=== PATIENT | female | born 1945 | race Caucasian/White ===

== ENCOUNTER 2016-12-22 18:18 | Emergency (ER) | payer MEDICARE ==
--- NOTE | 2016-12-22 19:35 | ER Document Report ---
ED General - General Chief Complaint: Fall Stated Complaint: FALL;BODY PAIN Time seen by provider: 19:30 Notes: Patient is a 71-year-old female that comes emergency department for chief complaint of fall, patient was reportedly walking up stairs when she lost her balance and fell back against the wall, hitting the back of her head. Patient did not pass out, has not vomited, patient is confused at baseline with Alzheimer's. She lives at home with family. Family states that for the past few days patient has had reduced fluid intake and they are afraid she is dehydrated. No fevers, no vomiting, no diarrhea, patient complains of neck pain but has no other complaints. Past medical history of hypertension, hypothyroidism. - Related Data Allergies/Adverse Reactions: No Known Allergies Allergy (Verified 11/22/13 22:20) Past Medical History - General Information source: Patient - Social History Smoking Status: Never Smoker Frequency of alcohol use: None Drug Abuse: None Lives with: Family Family History: Reviewed & Not Pertinent - Past Medical History Cardiac Medical History: Reports: Hx Hypercholesterolemia, Hx Hypertension Pulmonary Medical History: Reports: Hx Asthma Past Surgical History: Reports: Hx Hysterectomy, Hx Orthopedic Surgery - low back fusion - Immunizations Hx Diphtheria, Pertussis, Tetanus Vaccination: No Hx Pneumococcal Vaccination: 08/10/13 Review of Systems - Review of Systems Constitutional: No symptoms reported EENT: No symptoms reported Cardiovascular: No symptoms reported Respiratory: No symptoms reported Gastrointestinal: No symptoms reported Genitourinary: No symptoms reported Female Genitourinary: No symptoms reported Musculoskeletal: No symptoms reported Skin: No symptoms reported Hematologic/Lymphatic: No symptoms reported Neurological/Psychological: See HPI Physical Exam - Vital signs Vitals: Temp Pulse Resp BP Pulse Ox 97.8 F 66 18 92/57 L 99 12/22/16 19:36 12/22/16 19:36 12/22/16 19:36 12/22/16 19:36 12/22/16 19:36 Interpretation: Normal - General General appearance: Appears well, Alert In distress: None - Patient is alert, conversational - HEENT Head: Normocephalic, Abrasions - Small abrasions to the posterior parietal scalp , otherwise unremarkable exam Eyes: Normal Conjunctiva: Normal Extraocular movements intact: Yes Eyelashes: Normal Pupils: PERRL Nasal: Normal Mouth/Lips: Normal Mucous membranes: Normal Pharynx: Normal Neck: Normal - Respiratory Respiratory status: No respiratory distress Chest status: Nontender Breath sounds: Normal Chest palpation: Normal - Cardiovascular Rhythm: Regular Heart sounds: Normal auscultation Murmur: No - Abdominal Inspection: Normal Distension: No distension Bowel sounds: Normal Tenderness: Nontender. No: Tender, Guarding Organomegaly: No organomegaly - Back Back: Normal, Nontender - Extremities General upper extremity: Normal inspection, Nontender, Normal color, Normal ROM , Normal temperature General lower extremity: Normal inspection, Nontender, Normal color, Normal ROM , Normal temperature, Normal weight bearing. No: Selwyn's sign - Neurological Neuro grossly intact: Yes Cognition: Confused Orientation: Disoriented to place, Disoriented to time, Disoriented to events. 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 Patient cooperates with neurological exam which is normal otherwise. Discussed with Dr. Castillo per [facility] guidelines. CT of the head and neck are normal, small abrasion over the top of the head, no repairable wound. This was cleaned and dressed. BMP showing low potassium, urine shows evidence of dehydration. CBC unremarkable. Patient given potassium, IV fluid bolus, blood pressure normalized, patient will follow closely with primary care this week according to family, discussed head injury and return precautions. Family members state understanding and agreement. - Vital Signs Vital signs: Temp Pulse Resp BP Pulse Ox 98.8 F 79 16 128/96 H 92 12/22/16 23:37 12/22/16 23:37 12/22/16 23:37 12/22/16 23:37 12/22/16 23:37 - Laboratory Result Diagrams: 12/22/16 20:19 12/22/16 20:19 Laboratory results interpreted by me: 12/22/16 12/22/16 12/22/16 20:19 20:19 20:19 MCV 79 L MCH 26.5 L RDW 15.1 H Seg Neutrophils % 86.0 H Lymphocytes % 5.5 L Absolute Neutrophils 9.0 H Potassium 3.1 L Est GFR ( Amer) 58 L Est GFR (Non-Af Amer) 48 L Urine Protein 30 H Urine Bilirubin SMALL H Urine Urobilinogen 4.0 H Discharge - Discharge Clinical Impression: Dehydration, Hypokalemia Fall Qualifiers: Encounter type: initial encounter Qualified Code(s): W19.XXXA - Unspecified fall, initial encounter Scalp abrasion Qualifiers: Encounter type: initial encounter Qualified Code(s): S00.01XA - Abrasion of scalp, initial encounter Condition: Stable Disposition: HOME, SELF-CARE Additional Instructions: Imaging of the head and neck does not show any concerning findings. Lab workup shows some dehydration and low potassium, continue rehydration at home, follow-up with primary care for recheck of lab work this week. Keep the abrasion on the scalp clean, clean gently with soap and water, apply topical antibiotic. If needed over the next 2 days take pain medicine, if you do also take the stool softener Return to emergency department for any concerning symptoms - see head injury precautions below. Head Injury Precautions At this point, there is no evidence that your head injury is serious. Observation is necessary, however. Take only clear liquids for the first few hours, unless told otherwise by the doctor. If no pain medication was prescribed, you may take acetaminophen according to the directions on the bottle. Do not take any medication that may alter your level of alertness (unless you've discussed it with the doctor first) . Limit activity for the first 24 hours. Bed rest is best. During the first 24 hours, check to see approximately every two to three hours that the patient is easily arousable, responds normally, and can perform common tasks such as walking without difficulty. Contact your doctor or go to the hospital if any of the following things occur: Persistent vomiting, difficulty in arousing the patient, worsening or continued headache, or failure to improve as expected. Head injuries can cause symptoms that persist for a few days or even a few weeks. Prescriptions: Docusate Sodium [Colace 100 mg Capsule] 100 mg PO DAILY #30 capsule Hydrocodone/Acetaminophen [[place] 5-325 mg Tablet] 0.5 - 1 tab PO ASDIR #10 tablet
[2016-12-22 20:51] LABS: ABSOLUTE BASOPHILS # (AUTO) 0.1 10^3/uL (0.0-0.2); ABSOLUTE LYMPHOCYTES (AUTO) 0.6 10^3/uL (0.5-4.7); ABSOLUTE MONOCYTES (AUTO) 0.8 10^3/uL (0.1-1.4); BASOPHILS % (AUTO) 0.8 % (0-2); EOSINOPHILS % (AUTO) 0.4 % (0-6); HEMATOCRIT 40.9 % (36.0-47.0); HEMOGLOBIN 13.7 g/dL (12.0-15.5); HGB HCT DIFFERENCE 0.2; LYMPHOCYTES % (AUTO) 5.5 % (13-45); MEAN CORPUSCULAR HEMOGLOBIN 26.5 pg (27.0-33.4); MEAN CORPUSCULAR HGB CONC 33.4 g/dL (32.0-36.0); MEAN CORPUSCULAR VOLUME 79 fl (80-97); MONOCYTES % (AUTO) 7.3 % (3-13); RED BLOOD COUNT 5.15 10^6/uL (3.72-5.28); RED CELL DISTRIBUTION WIDTH 15.1 % (11.5-14.0); WHITE BLOOD COUNT 10.4 10^3/uL (4.0-10.5)
[2016-12-22 21:08] LABS: AMORPHOUS SEDIMENT,URINE TRACE /HPF; APPEARANCE,URINE CLEAR; BILIRUBIN,URINE SMALL (NEGATIVE); GLUCOSE, URINE NEGATIVE (NEGATIVE); KETONES,URINE NEGATIVE (NEGATIVE); LEUKOCYTE ESTERASE,URINE NEGATIVE (NEGATIVE); NITRITE,URINE NEGATIVE (NEGATIVE); PROTEIN,URINE 30 mg/dL (NEGATIVE)
[2016-12-22 21:09] LABS: ANION GAP 13 (5-19); BLOOD UREA NITROGEN 12 mg/dL (7-20); CALCIUM 9.8 mg/dL (8.4-10.2); CARBON DIOXIDE 27 mmol/L (22-30); CHLORIDE 98 mmol/L (98-107); CREATININE RESULT 1.12 mg/dL (0.52-1.25); GLUCOSE 104 mg/dL (75-110); POTASSIUM 3.1 mmol/L (3.6-5.0); SODIUM 137.9 mmol/L (137-145)
[2016-12-22] MEDS ORDERED: POTASSIUM CHLORIDE 10 MEQ TABLET.SA PO ONE (22:07)
[2016-12-22] MEDS ORDERED: NORMAL SALINE 1000 ML 1,000 ML IV ONE (22:11)
[2016-12-22] MEDS ORDERED: ACETAMINOPHEN 325 MG TABLET PO ONE (22:39)
[2016-12-23 00:04] VITALS: BP 128/96
== END 2016-12-22 23:45 | disposition home or self-care (01) ==
LOC: ER 18:18
DX: S00.01XA Abrasion of scalp, initial encounter (principal); E86.0 Dehydration; E87.6 Hypokalemia; M79.1 Myalgia; W10.9XXA Fall (on) (from) unspecified stairs and steps, initial encounter; Y92.009 Unspecified place in unspecified non-institutional (private) residence as the place of occurrence of the external cause; G30.9 Alzheimer's disease, unspecified; F02.80 Dementia in other diseases classified elsewhere, unspecified severity, without behavioral disturbance, psychotic disturbance, mood disturbance, and anxiety; E78.00 Pure hypercholesterolemia, unspecified; I10 Essential (primary) hypertension; J45.909 Unspecified asthma, uncomplicated; Z90.710 Acquired absence of both cervix and uterus; Z98.1 Arthrodesis status
CPT/HCPCS: 99284; 51701; 36415; 85025; 80048; 81001; 70450; 72125; A9270 ×2; J7030

== ENCOUNTER → 2017-03-13 | Outpatient (CLI) | payer MEDICARE, MEDICAID | LOC: RAD 11:07 | PROVIDERS: ATTEND Internal Medicine Gastroenterology | DX: D50.0 Iron deficiency anemia secondary to blood loss (chronic) (principal); R63.4 Abnormal weight loss | CPT/HCPCS: 74177; 82565 ==

== ENCOUNTER 2017-08-09 17:16 | Emergency (ER) | payer MEDICARE, MEDICAID ==
--- NOTE | 2017-08-09 18:24 | ER Document Report ---
ED Blood Pressure Problem - General Chief Complaint: High Blood Pressure Stated Complaint: BLOOD PRESSURE ISSUES Time Seen by Provider: 08/09/17 18:17 Notes: Patient is a resident of the [facility], a local residence facility for people with dementia. EMS was called because staff at the [facility] claim that the patient's blood pressure was 200/118. When EMS arrived at the facility and patient was evaluated, they obtained a blood pressure of 152/90. Patient's is here with her in the emergency department says that the only complaint reported by the staff was that she had a low-grade fever and her stomach was hurting. Patient denies having any stomach pain or feeling feverish. We will recheck remember that this patient has dementia and her history is not necessarily reliable. Patient has no complaints at this time. She specifically denies headache, chest pain, vomiting or diarrhea, difficulty breathing or shortness of breath. [place] ill in the past few days. Patient does have an appointment to see her new primary care provider in [place] Friday, 2 days from now. says that she supposed to have her blood pressure checked and get blood work done at that time. TRAVEL OUTSIDE OF THE [place] IN LAST 30 DAYS: No - Related Data Allergies/Adverse Reactions: No Known Allergies Allergy (Verified 11/22/13 22:20) Past Medical History - Social History Smoking Status: Never Smoker Cigarette use (# per day): No Family History: Reviewed & Not Pertinent - Past Medical History Cardiac Medical History: Reports: Hx Hypercholesterolemia, Hx Hypertension Denies: Hx Coronary Artery Disease Pulmonary Medical History: Reports: Hx Asthma, Hx COPD, Other - Sarcoid Endocrine Medical History: Reports: Hx Hypothyroidism Past Surgical History: Reports: Hx Hysterectomy, Hx Orthopedic Surgery - low back fusion - Immunizations Hx Diphtheria, Pertussis, Tetanus Vaccination: No Hx Pneumococcal Vaccination: 08/10/13 Review of Systems - Review of Systems Notes: REVIEW OF SYSTEMS: CONSTITUTIONAL : Patient does not think she has had a fever, but staff at her living facility says she had a low-grade fever. . EENT: Denies eye, ear, nose or mouth or throat pain or other symptoms. CARDIOVASCULAR: Denies chest pain. RESPIRATORY: Denies cough, chest congestion, or shortness of breath. GASTROINTESTINAL: Denies abdominal pain or nausea, vomiting, or diarrhea. Staff reports the patient had some stomach hurting. Patient denies. GENITOURINARY: Denies difficulty or painful urinating, urinary frequency, blood in urine. MUSCULOSKELETAL: Denies back or neck pain. Denies joint pain or swelling. SKIN: Denies rash or skin lesions. NEUROLOGICAL: Alzheimer's dementia. Denies headache. Denies sensory loss or motor deficits. ALL OTHER SYSTEMS REVIEWED AND NEGATIVE. Physical Exam - Vital signs Vitals: Temp Pulse Resp BP Pulse Ox 97.7 F 85 16 149/90 H 92 08/09/17 17:55 08/09/17 17:55 08/09/17 17:55 08/09/17 17:55 08/09/17 17:55 Interpretation: Normal - Notes Notes: PHYSICAL EXAMINATION: GENERAL: Well-appearing, in no acute distress. Vital signs are all normal. Calm and cooperative and answers questions appropriately, although I do not know if you can rely upon them as being accurate or correct. HEAD: Atraumatic, normocephalic. EYES: Pupils equal round and reactive to light, extraocular movements intact. ENT: oropharynx clear without exudates. Moist mucous membranes. NECK: Normal range of motion, supple. LUNGS: Breath sounds clear and equal bilaterally. HEART: Regular rate and rhythm without murmurs. ABDOMEN: Soft, nontender. No guarding or rebound. No masses felt. No bruits present. BACK: No tenderness throughout entire back. EXTREMITIES: Normal range of motion without pain. NEUROLOGICAL: Normal speech, and seems appropriate in her conversation, although I cannot be certain of her accuracy or validity. Normal sensory, motor , and reflex exams. Awake and alert. Cranial nerves normal. PSYCH: Normal mood, normal affect. SKIN: Warm, dry, no rashes. Course - Re-evaluation Re-evalutation: 08/09/17 18:40 Patient's blood pressure was taken another couple of times and on all occasions , her blood pressure was in the 140s systolic. Patient remained asymptomatic. All other vital signs were normal as well. Since the patient has an appointment to see her doctor in 2 days, and everything is normal at this time, I am discharging the patient back to the [facility]. - Vital Signs Vital signs: Temp Pulse Resp BP Pulse Ox 97.7 F 85 16 149/90 H 92 08/09/17 18:15 08/09/17 17:55 08/09/17 18:15 08/09/17 17:55 08/09/17 18:15 Discharge - Discharge Clinical Impression: Hypertension Condition: Stable Disposition: HOME, SELF-CARE Additional Instructions: HIGH BLOOD PRESSURE, NOT TREAT: When your blood pressure was taken today it was elevated. Today's reading was 146/87. We do not think you need to have your blood pressure treated today. Sometimes, stress or illness causes a temporary elevation of your blood pressure. We suggest that you get your blood pressure measured again during the next few days to see if this elevated blood pressure is more than a temporary abnormality. If your blood pressure is greater than 150/90 on each occasion, you must have treatment. Some simple things you can do to help are: If you have blood pressure medicine but aren't using it regularly, start taking it again. Get some aerobic exercise for at least 20 minutes on a daily basis. (See your doctor before beginning a new exercise program.) Eat a low-fat diet. Lose excess weight. Avoid salty foods and avoid adding salt to any of the foods you eat. Avoid diet pills, decongestants, "energizing" herbs, and other medicines that elevate blood pressure. If left untreated, hypertension greatly enhances your risk for developing heart disease and strokes. Please don't ignore this problem. You may find it helpful to take a fluid pill for your blood pressure and for the swelling in her legs. Keep your appointment to see your doctor Friday for further evaluation and adjustment of your medications, as needed. FOLLOW-UP CARE: If you have been referred to a physician for follow-up care, call the physician s office for an appointment as you were instructed or within the next two days. If you experience worsening or a significant change in your symptoms, notify the physician immediately or return to the Emergency Department at any time for re-evaluation.
[2017-08-09 18:59] VITALS: BP 148/84
== END 2017-08-09 18:35 | disposition home or self-care (01) ==
LOC: ER 17:16
DX: I10 Essential (primary) hypertension (principal); F03.90 Unspecified dementia, unspecified severity, without behavioral disturbance, psychotic disturbance, mood disturbance, and anxiety
CPT/HCPCS: 99283

== ENCOUNTER 2017-08-12 23:53 | Emergency (ER) | payer MEDICARE, MEDICAID ==
--- NOTE | 2017-08-13 00:06 | ER Document Report ---
ED Fall - General Chief Complaint: Fall Stated Complaint: FALL Time Seen by Provider: 08/13/17 00:02 Notes: The patient is a 72-year-old female, past medical history Alzheimer's, HTN, presents from [facility] (an Alzheimer's home), presents after fall where she hit her head. She was in the wrong person's bed and was told to leave the bed. When she did, she fell forward and hit the top part of her head. According to EMS and senior care staff, this was strictly a mechanical fall and patient did not have LOC. Patient says that she has a mild headache, but denies neck pain, numbness, tingling, blurry vision, chest pain, shortness of breath, focal weakness, numbness or open wounds. TRAVEL OUTSIDE OF THE [place] IN LAST 30 DAYS: No - Related data Allergies/Adverse Reactions: No Known Allergies Allergy (Verified 11/22/13 22:20) Past Medical History - General Information source: Patient, Emergency Med Personnel - Social History Smoking Status: Never Smoker Family History: Reviewed & Not Pertinent - Past Medical History Cardiac Medical History: Reports: Hx Hypercholesterolemia, Hx Hypertension Denies: Hx Coronary Artery Disease Pulmonary Medical History: Reports: Hx Asthma, Hx COPD Endocrine Medical History: Reports: Hx Hypothyroidism Past Surgical History: Reports: Hx Hysterectomy, Hx Orthopedic Surgery - low back fusion - Immunizations Hx Diphtheria, Pertussis, Tetanus Vaccination: No Hx Pneumococcal Vaccination: 08/10/13 Review of Systems - Review of Systems Notes: REVIEW OF SYSTEMS: CONSTITUTIONAL: -fevers, -chills EENT: -eye pain, -difficulty swallowing, -nasal congestion CARDIOVASCULAR:-chest pain, -syncope. RESPIRATORY: -cough, -SOB GASTROINTESTINAL: -abdominal pain, - nausea, -vomiting, -diarrhea GENITOURINARY: -dysuria, -hematuria MUSCULOSKELETAL: -back pain, -neck pain SKIN: -rash or skin lesions. HEMATOLOGIC: -easy bruising or bleeding. LYMPHATIC: -swollen, enlarged glands. NEUROLOGICAL: -altered mental status or loss of consciousness, +headache, - neurologic symptoms PSYCHIATRIC: -anxiety, -depression. ALL OTHER SYSTEMS REVIEWED AND NEGATIVE. Physical Exam - Vital signs Vitals: Resp Pulse Ox 19 97 08/13/17 00:02 08/13/17 00:02 - Notes Notes: PHYSICAL EXAMINATION: GENERAL: Well-appearing, well-nourished and in no acute distress. HEAD: Atraumatic, normocephalic. EYES: Pupils equal round and reactive to light, extraocular movements intact, sclera anicteric, conjunctiva are normal. ENT: nares patent, oropharynx clear without exudates. Moist mucous membranes. NECK: Kyphotic neck, no midline tenderness, supple without lymphadenopathy LUNGS: Breath sounds clear to auscultation bilaterally and equal. No wheezes rales or rhonchi. HEART: Regular rate and rhythm without murmurs ABDOMEN: Soft, nontender, normoactive bowel sounds. No guarding, no rebound. No masses appreciated. EXTREMITIES: Normal range of motion, no pitting or edema. No cyanosis. NEUROLOGICAL: Cranial nerves grossly intact. Normal speech, normal gait. Normal sensory and motor exams. PSYCH: Normal mood, normal affect. SKIN: Warm, Dry, normal turgor, no rashes or lesions noted. Course - Re-evaluation Re-evalutation: Patient appears well. Her injury resulted from a strictly mechanical fall and patient did not have LOC or syncope. Her head and C-spine CT does not show any acute abnormalities. There may be a mediastinal mass, but pt also has history of sarcoidosis. Spoke to patient's about this result and need to follow -up with primary care physician for further evaluation and treatment. Will discharge patient back to [facility] with contusion instructions. - Vital Signs Vital signs: Temp Pulse Resp BP Pulse Ox 15 139/76 H 97 08/13/17 01:01 08/13/17 01:01 08/13/17 01:01 - Diagnostic Test Radiology reviewed: Image reviewed, Reports reviewed Discharge - Discharge Clinical Impression: Head contusion Qualifiers: Encounter type: initial encounter Contusion of head detail: scalp Qualified Code(s): S00.03XA - Contusion of scalp, initial encounter Condition: Stable Disposition: HOME, SELF-CARE Additional Instructions: Your CAT scan shows a possible lung mass. This may be related to her sarcoidosis or it may be from a lung cancer. Speak to your primary care physician this week for further evaluation and treatment. Contusion Your injury has resulted in a contusion -- a crushing of the deep tissues. No injury to important structures was detected during the physician's exam. Contusions vary in the amount of pain they cause, and in the length of time required for healing. Typically, the area will become bruised, and will remain painful to touch for two or three weeks. However, most patients are back to working and playing within a few days. After the initial period of rest and cold-packs, your symptoms (together with the doctor's recommendations) will determine how rapidly you can get back to full activity. Usually this means "do what feels okay, but don't do things that hurt." If re-examination was recommended, it's important to follow up as instructed. Call the doctor or return any time if pain increases, if swelling becomes severe, if you develop numbness or weakness in an injured extremity, or if any other alarming symptoms occur.
--- NOTE | 2017-08-13 01:35 | RADIOLOGY REPORT (SQ) ---
EXAM: NONCONTRAST BRAIN CT EXAMINATION. CLINICAL INDICATION: Head injury post fall. COMPARISON: Brain CT examination December 22, 2016. TECHNIQUE: Using low dose helical CT technique, thin section axial images were performed through the brain without the administration of intravenous or subarachnoid contrast material. FINDINGS: Brain volume is normal for age. No diffuse brain swelling or brain herniation. No hydrocephalus. No subdural or epidural hematomas. No large subacute brain infarction. No parenchymal brain hemorrhage or evidence of intracranial mass lesion. Unchanged mild nonspecific cerebral white matter disease. Caudate heads, lentiform nuclei, thalami and internal capsules are normal. Bones of the skull and skull base are normal. The middle ears and mastoid air cells are clear. The paranasal sinuses are clear. Globes and orbits are grossly normal. IMPRESSION: 1. Unchanged normal for age noncontrast brain CT examination.
--- NOTE | 2017-08-13 01:45 | RADIOLOGY REPORT (SQ) ---
EXAM: NONCONTRAST CERVICAL SPINE CT EXAMINATION. CLINICAL INDICATION: Pain post fall. COMPARISON: None. TECHNIQUE: Using low-dose helical technique, thin section axial images were performed through the cervical spine without the administration of intravenous or subarachnoid contrast material. CT sagittal coronal reconstructions were also obtained. FINDINGS: Severe multilevel degenerative disease with remote fusion of the C5/C6 level. Remote compression fractures of the T2 and T3 vertebral bodies. No fractures, spondylolisthesis or facet joint dislocation. No hemorrhage in the spinal canal. Precervical soft tissue thickness is normal. The odontoid process, preodontoid space and C1 vertebral body are intact. The occipital condyles are intact. Partially visualized bony structures of the skull base appear normal. Soft tissue structures of the neck are grossly normal on this noncontrast examination. IMPRESSION: 1. Access disease and remote upper thoracic compression fractures. No acute fractures, spondylolisthesis or facet joint dislocation. Partially visualized calcified bihilar lymph nodes typical for benign old granulomatous disease. Partially visualized right hilar/right mediastinal mass lesion.
[2017-08-13 03:26] VITALS: BP 128/78
== END 2017-08-13 03:33 | disposition home or self-care (01) ==
LOC: ER 23:53
DX: S00.03XA Contusion of scalp, initial encounter (principal); W06.XXXA Fall from bed, initial encounter; Y93.89 Activity, other specified; Y92.193 Bedroom in other specified residential institution as the place of occurrence of the external cause; G30.9 Alzheimer's disease, unspecified; F02.80 Dementia in other diseases classified elsewhere, unspecified severity, without behavioral disturbance, psychotic disturbance, mood disturbance, and anxiety; I10 Essential (primary) hypertension; R51 Headache; J44.9 Chronic obstructive pulmonary disease, unspecified; D86.9 Sarcoidosis, unspecified
CPT/HCPCS: 70450; 72125; 99283

== ENCOUNTER 2017-12-01 22:48 | Emergency (ER) | payer MEDICARE, MEDICAID ==
--- NOTE | 2017-12-02 02:19 | ER Document Report ---
ED Medical Screen (RME) - General Chief Complaint: Fall Stated Complaint: FALL Time Seen by Provider: 12/02/17 02:17 Notes: 72-year-old female, chief complaint of fall, comes by EMS from the [facility], reportedly she tripped over her own feet and fell to the ground. Patient is telling me she hurts on her elbow. Family at bedside. She is not on a blood thinner. She was not knocked out, she denies vomiting, she denies chest or abdominal pain. Patient has a history of Alzheimer's but follows directions and is not confused to person or place. TRAVEL OUTSIDE OF THE [place] IN LAST 30 DAYS: No - Related Data Allergies/Adverse Reactions: No Known Allergies Allergy (Verified 12/01/17 23:53) Past Medical History - Past Medical History Cardiac Medical History: Reports: Hx Hypercholesterolemia, Hx Hypertension Denies: Hx Coronary Artery Disease Pulmonary Medical History: Reports: Hx Asthma, Hx COPD Endocrine Medical History: Reports: Hx Hypothyroidism Past Surgical History: Reports: Hx Hysterectomy, Hx Orthopedic Surgery - low back fusion - Immunizations Hx Diphtheria, Pertussis, Tetanus Vaccination: No Physical Exam - Vital signs Vitals: Temp Pulse Resp BP Pulse Ox 98.4 F 82 16 139/87 H 92 12/01/17 23:51 12/01/17 23:51 12/01/17 23:51 12/01/17 23:51 12/01/17 23:51 - HEENT Head: Other - Small amount of soft tissue swelling just above the left eye Course - Re-evaluation Re-evalutation: Small amount of soft tissue swelling just above the left eye, also has pain at the left elbow with skin abrasion, pain over the left hip, bruise with pain on the left knee. Otherwise unremarkable exam including no back pain or signs of trauma over the spine - Vital Signs Vital signs: Temp Pulse Resp BP Pulse Ox 98.4 F 82 16 139/87 H 92 12/01/17 23:51 12/01/17 23:51 12/01/17 23:51 12/01/17 23:51 12/01/17 23:51
--- NOTE | 2017-12-02 03:37 | RADIOLOGY REPORT (SQ) ---
EXAM DESCRIPTION: CT HEAD WITHOUT CLINICAL HISTORY: fall, hit head COMPARISON: 08/13/2017 TECHNIQUE: Axial CT of the head obtained from the skull apex to the skull base without contrast. FINDINGS: No acute intracranial hemorrhage identified. No mass, mass effect, shift of the midline, abnormal extra-axial fluid collection or CT evidence of acute ischemic change identified. The ventricular system and sulcal spaces are mildly enlarged compatible with mild cerebral atrophy. Scattered areas of hypodensity throughout the supratentorial white matter are nonspecific and may be related to chronic small vessel ischemic change. The visualized paranasal sinuses and the mastoid air cells are relatively well aerated. No skull fracture identified. Visualized orbits and globes are unremarkable. Atherosclerotic calcification of the intracranial internal carotid arteries. DLP: 5355 mGy-cm IMPRESSION: 1. No acute intracranial abnormality by CT criteria. This exam was performed according to our departmental dose-optimization program, which includes automated exposure control, adjustment of the mA and/or kV according to patient size and/or use of iterative reconstruction technique.
[2017-12-02 03:53] VITALS: BP 146/65
--- NOTE | 2017-12-02 04:10 | RADIOLOGY REPORT (SQ) ---
EXAM DESCRIPTION: ELBOW LEFT OVER 2 VIEWS CLINICAL HISTORY: fall, pain, bruising COMPARISON: None. FINDINGS: 3 views of the left elbow. No joint effusion. Osteopenia. No fracture identified. IMPRESSION: No acute fracture or dislocation.
--- NOTE | 2017-12-02 04:11 | RADIOLOGY REPORT (SQ) ---
EXAM DESCRIPTION: HIP LEFT AP/LATERAL CLINICAL HISTORY: fall, pain COMPARISON: None. FINDINGS: Single view of the pelvis and lateral view of the left hip. No acute fracture or dislocation. Osteopenia. Mild bilateral joint space narrowing. Pelvic soft tissues unremarkable. IMPRESSION: No acute fracture or dislocation.
--- NOTE | 2017-12-02 04:12 | RADIOLOGY REPORT (SQ) ---
EXAM DESCRIPTION: KNEE LEFT 4 VIEW CLINICAL HISTORY: fall, pain COMPARISON: None. FINDINGS: 4 views of the left knee. Osteopenia. No acute fracture or dislocation. No definite joint effusion. IMPRESSION: No acute fracture or dislocation.
--- NOTE | 2017-12-02 04:59 | ER Document Report ---
ED Fall - General Chief Complaint: Fall Stated Complaint: FALL Time Seen by Provider: 12/02/17 02:17 Notes: Patient is a 72-year-old female, chief complaint of fall, comes by EMS from the [facility], reportedly she tripped over her own feet and fell to the ground. Patient is telling me she hurts on her elbow. Family at bedside. She is not on a blood thinner. She was not knocked out, she denies vomiting, she denies chest or abdominal pain. Patient has a history of Alzheimer's but follows directions and is not confused to person or place. TRAVEL OUTSIDE OF THE [place] IN LAST 30 DAYS: No - Related data Allergies/Adverse Reactions: No Known Allergies Allergy (Verified 12/01/17 23:53) Past Medical History - General Information source: Patient, Relative, Transfer Record - Social History Smoking Status: Never Smoker Frequency of alcohol use: None Drug Abuse: None Lives with: Long Term Family History: Reviewed & Not Pertinent Patient has suicidal ideation: No Patient has homicidal ideation: No - Past Medical History Cardiac Medical History: Reports: Hx Hypercholesterolemia, Hx Hypertension Denies: Hx Coronary Artery Disease Pulmonary Medical History: Reports: Hx Asthma, Hx COPD Endocrine Medical History: Reports: Hx Hypothyroidism Renal/ Medical History: Denies: Hx Peritoneal Dialysis Past Surgical History: Reports: Hx Hysterectomy, Hx Orthopedic Surgery - low back fusion - Immunizations Hx Diphtheria, Pertussis, Tetanus Vaccination: No Hx Pneumococcal Vaccination: 08/10/13 Review of Systems - Review of Systems Constitutional: No symptoms reported EENT: No symptoms reported Cardiovascular: No symptoms reported Respiratory: No symptoms reported Gastrointestinal: No symptoms reported Genitourinary: No symptoms reported Female Genitourinary: No symptoms reported Musculoskeletal: See HPI Skin: See HPI Hematologic/Lymphatic: No symptoms reported Neurological/Psychological: No symptoms reported Physical Exam - Vital signs Vitals: Temp Pulse Resp BP Pulse Ox 98.4 F 82 16 139/87 H 92 12/01/17 23:51 12/01/17 23:51 12/01/17 23:51 12/01/17 23:51 12/01/17 23:51 Interpretation: Normal - General General appearance: Appears well, Alert In distress: None - Patient is actually smiling, talkative, well-appearing - HEENT Head: Normocephalic. No: Atraumatic - There is mild soft tissue swelling just above the left eye at the orbit and eyebrow area, otherwise no signs of trauma over the head Eyes: Normal Conjunctiva: Normal Extraocular movements intact: Yes Eyelashes: Normal Pupils: PERRL Ears: Normal Sinus: Normal Nasal: Normal Mouth/Lips: Normal Mucous membranes: Normal Pharynx: Normal Neck: Normal - Respiratory Respiratory status: No respiratory distress Chest status: Nontender. No: Tender Breath sounds: Normal. No: Decreased air movement Chest palpation: Normal - Cardiovascular Rhythm: Regular. No: Tachycardia Heart sounds: Normal auscultation, S1 appreciated, S2 appreciated Murmur: No - Abdominal Inspection: Normal Distension: No distension Bowel sounds: Normal Tenderness: Nontender. No: Tender, Guarding - Back Back: Normal. No: Tender, Vertebra tenderness - Extremities General upper extremity: Other - There is a skin abrasion over the left lateral elbow, mild surrounding ecchymosis, full range of motion still intact, normal capillary refill and sensation, normal upper extremity exam otherwise General lower extremity: Other - Small contusion to the left knee just lateral to the patella, range of motion intact, minimal palpation pain to the left groin /hip area, normal distal neurovascular exam. - Neurological Neuro grossly intact: Yes Cognition: Normal Orientation: AAOx4 Rick Coma Scale Eye Opening: Spontaneous Rick Coma Scale Verbal: Oriented Rick Coma Scale Motor: Obeys Commands Rick Coma Scale Total: 15 Speech: Normal Motor strength normal: LUE, RUE, LLE, RLE Sensory: Normal - Psychological Associated symptoms: Normal affect, Normal mood - Skin Skin Temperature: Warm Skin Moisture: Dry Skin Color: Normal Course - Re-evaluation Re-evalutation: CT of the head unremarkable, x-rays of the elbow, hip, knee unremarkable. Small skin abrasion was cleaned and approximated with Steri-Strips. Patient at neurological baseline. Unremarkable vital signs. Discussed head injury precautions, wound care with patient and family member, discussed follow-up instructions and return precautions. Patient and family state understanding and agreement. - Vital Signs Vital signs: Temp Pulse Resp BP Pulse Ox 98.5 F 75 20 146/65 H 95 12/02/17 03:32 12/02/17 03:32 12/02/17 03:32 12/02/17 03:32 12/02/17 03:32 Discharge - Discharge Clinical Impression: Fall Qualifiers: Encounter type: initial encounter Qualified Code(s): W19.XXXA - Unspecified fall, initial encounter Head injury Qualifiers: Encounter type: initial encounter Qualified Code(s): S09.90XA - Unspecified injury of head, initial encounter Elbow abrasion Qualifiers: Encounter type: initial encounter Laterality: left Qualified Code(s): S50.312A - Abrasion of left elbow, initial encounter Knee contusion Qualifiers: Encounter type: initial encounter Laterality: left Qualified Code(s): S80.02XA - Contusion of left knee, initial encounter Condition: Stable Disposition: HOME, SELF-CARE Additional Instructions: The CAT scan of the head was performed because of mild soft tissue swelling just above the left eye, however the CAT scan of the head is normal. X-ray of the elbow is normal, x-ray of the knee and hip/femur are normal. See care Steri-Stripped wounds. See head injury precautions. Follow-up with primary care. Return for any concerning symptoms. Head Injury Precautions At this point, there is no evidence that your head injury is serious. Observation is necessary, however. Take only clear liquids for the first few hours, unless told otherwise by the doctor. If no pain medication was prescribed, you may take acetaminophen according to the directions on the bottle. Do not take any medication that may alter your level of alertness (unless you've discussed it with the doctor first) . Limit activity for the first 24 hours. Bed rest is best. During the first 24 hours, check to see approximately every two to three hours that the patient is easily arousable, responds normally, and can perform common tasks such as walking without difficulty. Contact your doctor or go to the hospital if any of the following things occur: Persistent vomiting, difficulty in arousing the patient, worsening or continued headache, or failure to improve as expected. Head injuries can cause symptoms that persist for a few days or even a few weeks. Care of Steri-Strip Closure Your cut has been closed up with a special surgical tape. For this type of cut, it can replace stitches. You must protect the wound just as you would with stitches, however. For the first few days, keep the wound area completely dry. This also means you should avoid activity which makes you sweat. Do not move the area if motion stretches or wrinkles the strips. Don't allow the area to be bumped -- if bleeding occurs, the blood can make the strips loosen. The strips are somewhat waterproof. After a few days, the physician may allow you to shower. Be sure to ask if it's OK. Do not remove the tape until it peels off by itself. At that time, the wound should be healed. Referrals: DAVID LOGAN MD [Primary Care Provider] - Follow up as needed
== END 2017-12-02 05:13 | disposition home or self-care (01) ==
LOC: ER 22:48
DX: S50.02XA Contusion of left elbow, initial encounter (principal); S80.02XA Contusion of left knee, initial encounter; S09.90XA Unspecified injury of head, initial encounter; M25.552 Pain in left hip; W01.0XXA Fall on same level from slipping, tripping and stumbling without subsequent striking against object, initial encounter; Y92.199 Unspecified place in other specified residential institution as the place of occurrence of the external cause; G30.9 Alzheimer's disease, unspecified; F02.80 Dementia in other diseases classified elsewhere, unspecified severity, without behavioral disturbance, psychotic disturbance, mood disturbance, and anxiety; I10 Essential (primary) hypertension; J44.9 Chronic obstructive pulmonary disease, unspecified
CPT/HCPCS: 70450; 99284

== ENCOUNTER 2017-12-29 17:18 | Inpatient (IN) | payer MEDICARE, MEDICAID ==
--- NOTE | 2017-12-29 18:09 | ER Document Report ---
ED Respiratory Problem - General Chief Complaint: Breathing Difficulty Stated Complaint: SHORTNESS OF BREATH Time Seen by Provider: 12/29/17 18:09 Mode of Arrival: Medic Cannot obtain history due to: Dementia TRAVEL OUTSIDE OF THE [place] IN LAST 30 DAYS: No - HPI Notes: 72-year-old lady with past medical history of hypertension, hyperlipidemia, sarcoidosis, Alzheimer's dementia who presented today from [facility] for evaluation of shortness of breath. According to family patient has been having issues with her hypertension as well. According to EMS upon arrival patient had oxygen saturations in 50s. Patient had improved with supplemental nasal cannula. Patient does have increased work of breathing with associated tachypnea. According to family patient did not have any fevers, chills, chest pain. Patient does not have any history of heart failure. Patient was previously on prednisone for her sarcoidosis. According to family her sarcoidosis is under control at present time. - Related Data Allergies/Adverse Reactions: No Known Allergies Allergy (Verified 12/01/17 23:53) Past Medical History - General Information source: Patient, Relative - Social History Smoking Status: Unknown if Ever Smoked Family History: Reviewed & Not Pertinent Patient has suicidal ideation: No Patient has homicidal ideation: No - Past Medical History Cardiac Medical History: Reports: Hx Hypercholesterolemia, Hx Hypertension Denies: Hx Coronary Artery Disease Pulmonary Medical History: Reports: Hx Asthma, Hx COPD Endocrine Medical History: Reports: Hx Hypothyroidism Renal/ Medical History: Denies: Hx Peritoneal Dialysis Past Surgical History: Reports: Hx Hysterectomy, Hx Orthopedic Surgery - low back fusion - Immunizations Hx Diphtheria, Pertussis, Tetanus Vaccination: No Hx Pneumococcal Vaccination: 08/10/13 Review of Systems - Review of Systems Notes: REVIEW OF SYSTEMS: CONSTITUTIONAL: -fevers, -chills EENT: -eye pain, -difficulty swallowing, -nasal congestion CARDIOVASCULAR: -chest pain, -syncope. RESPIRATORY: +cough, +SOB GASTROINTESTINAL: -abdominal pain, -nausea, -vomiting, -diarrhea GENITOURINARY: -dysuria, -hematuria MUSCULOSKELETAL: -back pain, -neck pain SKIN: -rash or skin lesions. HEMATOLOGIC: -easy bruising or bleeding. LYMPHATIC: -swollen, enlarged glands. NEUROLOGICAL: -altered mental status or loss of consciousness, -headache, - neurologic symptoms PSYCHIATRIC: -anxiety, -depression. ALL OTHER SYSTEMS REVIEWED AND NEGATIVE. Physical Exam - Vital signs Vitals: Pulse Ox 96 12/29/17 17:40 - Notes Notes: Reviewed vital signs and nursing note as charted by RN. CONSTITUTIONAL: Alert and oriented, family at bedside HEAD: Normocephalic; atraumatic EYES: PERRL; Conjunctivae clear, sclerae non-icteric ENT: normal nose; no rhinorrhea; dry mucous membranes; pharynx without lesions noted NECK: Supple without meningismus; non-tender; no cervical lymphadenopathy, no masses CARD: Tachycardia regular rate and rhythm; no murmurs, no clicks, no rubs, no gallops; symmetric distal pulses RESP: patient has tachypnea and increased work of breathing, patient has hypoxia on room air, patient has bilateral wheezing in all the lung bolanos ABD/GI: Normal bowel sounds; non-distended; soft, nontender BACK: The back appears normal and is non-tender to palpation EXT: Normal ROM in all joints; non-tender to palpation; no cyanosis, no effusions, no edema SKIN: Normal skin NEURO: She is Cranial nerves 3-12 intact. Motor strength 5/5 bilaterally. Sensation intact to touch bilaterally. No pronator drift. Finger to nose intact bilaterally PSYCH: The patient's mood and manner are appropriate. Grooming and personal hygiene are appropriate. Course - Re-evaluation Re-evalutation: 12/29/17 18:56 72-year-old lady from [facility] with respiratory distress as well as hypoxemia differential diagnoses includes pneumonia, influenza, pleural effusion, heart failure, ACS, sepsis, fluid overload, pulmonary edema, pneumothorax, worsening sarcoidosis, acute cystitis We will obtain basic lab work including CBC, CMP, urinalysis, lactic acid, blood cultures ABG, chest x-ray, EKG, BNP, troponin Continuous cardiac monitoring as well as pulse oximetry We will give patient supplemental oxygen Start patient on DuoNeb's as well as steroids Reassess patient 12/29/17 19:39 Patient has improvement of her tachypnea after DuoNeb, wheezing is resolved as well Patient still requires oxygen, 2 L at present time We will give patient IV dose of levofloxacin as well as IV fluids given her tachycardia 12/29/17 20:16 Was called at bedside by the nurse, patient became very diaphoretic during the nebulizer treatment with worsening wheezing as well as oxygen desaturation and to mid 70s Upon arrival patient is cyanotic Airway was repositioning, patient had improvement of her saturation Patient was placed on BiPAP 12/29/17 20:38 Patient is improving, her oxygen saturations are doing well on BiPAP We will give patient IV magnesium as well, case discussed with hospitalist, Dr. Benito Henao, agree with admission to telemetry obs - Vital Signs Vital signs: Temp Pulse Resp BP Pulse Ox 97.7 F 24 H 106/65 97 12/29/17 17:51 12/29/17 19:01 12/29/17 19:01 12/29/17 20:26 - Laboratory Result Diagrams: 12/29/17 16:50 12/29/17 16:50 Laboratory results interpreted by me: 12/29/17 12/29/17 12/29/17 16:50 16:50 19:04 RDW 14.5 H Seg Neutrophils % 38.3 L Lymphocytes % 45.6 H Carbonic Acid 1.57 H ABG pCO2 52.0 H ABG pO2 107.7 H ABG HCO3 29.5 H ABG Total CO2 31.1 H BUN 22 H Glucose 203 H AST 38 H Alkaline Phosphatase 147 H - EKG Interpretation by Me Additional EKG results interpreted by me: 12/29/17 19:00 EKG interpretation with a rate of 97 Sinus rhythm, normal axis, patient has increased heart rate compared to her prior EKG by 27 beats Patient has premature ventricular complexes Normal SC interval, narrow QRS, QTC within normal limits Patient has no ST elevations or depressions, no T-wave inversions No significant changes compared to prior EKG other than premature beats as well as increased heart rate Critical Care Note - Critical Care Note Comments: Critical Care Time: 35 minutes Critical care provider statement: Hypoxemia, tachycardia Critical care time was exclusive of: Separately billable procedures and treating other patients and teaching time Critical care was time spent personally by me on the following activities: Blood draw for specimens, development of treatment plan with patient or surrogate, evaluation of patient's response to treatment, examination of patient , obtaining history from patient or surrogate, ordering and performing treatments and interventions, ordering and review of laboratory studies, ordering and review of radiographic studies, pulse oximetry, re-evaluation of patient's condition and review of old charts I assumed direction of critical care for this patient from another provider in my specialty: no Discharge - Discharge Clinical Impression: Respiratory distress, Hypoxemia, Sarcoidosis Condition: Stable Disposition: ADMITTED OBSERVATION Admitting Provider: Hospitalist Unit Admitted: Telemetry
[2017-12-29] MEDS ORDERED: IPRATROPIUM/ALBUTEROL 0.5-2.5 MG/3 ML AMPUL NEB ONE ×2 (18:20→19:45)
[2017-12-29] MEDS ORDERED: METHYLPREDNISOLONE INJ 125 MG/2 ML SDV IV ONE ×2 (18:21→20:42)
[2017-12-29 18:30] LABS: ABSOLUTE BASOPHILS # (AUTO) 0.2 10^3/uL (0.0-0.2); ABSOLUTE EOSINOPHILS # (AUTO) 0.3 10^3/uL (0.0-0.6); ABSOLUTE LYMPHOCYTES (AUTO) 4.5 10^3/uL (0.5-4.7); ABSOLUTE MONOCYTES (AUTO) 1.1 10^3/uL (0.1-1.4); ABSOLUTE NEUT (AUTO) 3.8 10^3/uL (1.7-8.2); BASOPHILS % (AUTO) 1.7 % (0-2); EOSINOPHILS % (AUTO) 3.5 % (0-6); HEMATOCRIT 41.7 % (36.0-47.0); HEMOGLOBIN 13.7 g/dL (12.0-15.5); LYMPHOCYTES % (AUTO) 45.6 % (13-45); MEAN CORPUSCULAR HEMOGLOBIN 28.9 pg (27.0-33.4); MEAN CORPUSCULAR HGB CONC 32.8 g/dL (32.0-36.0); MEAN CORPUSCULAR VOLUME 88 fl (80-97); MONOCYTES % (AUTO) 10.9 % (3-13); PLATELET COUNT 220 10^3/uL (150-450); RED BLOOD COUNT 4.74 10^6/uL (3.72-5.28); RED CELL DISTRIBUTION WIDTH 14.5 % (11.5-14.0); SEGMENTED NEUTROPHILS % (AUTO) 38.3 % (42-78); TOTAL CELLS COUNTED % (AUTO) 100 %; WHITE BLOOD COUNT 9.8 10^3/uL (4.0-10.5)
[2017-12-29 18:35] LABS: ALANINE AMINOTRANSFERASE 26 U/L (9-52); ALBUMIN 4.3 g/dL (3.5-5.0); ALKALINE PHOSPHATASE 147 U/L (38-126); ANION GAP 16 (5-19); ASPARTATE AMINO TRANSFERASE 38 U/L (14-36); BILIRUBIN,DIRECT 0.2 mg/dL (0.0-0.4); BILIRUBIN,TOTAL 0.4 mg/dL (0.2-1.3); BLOOD UREA NITROGEN 22 mg/dL (7-20); CALCIUM 10.1 mg/dL (8.4-10.2); CARBON DIOXIDE 24 mmol/L (22-30); CHLORIDE 104 mmol/L (98-107); GLUCOSE 203 mg/dL (75-110); POTASSIUM 4.2 mmol/L (3.6-5.0); SODIUM 143.7 mmol/L (137-145); TOTAL PROTEIN 7.5 g/dL (6.3-8.2)
[2017-12-29 18:47] LABS: NT PRO BNP 149 pg/mL (5-900)
[2017-12-29 18:57] LABS: TROPONIN I < 0.012 ng/mL
[2017-12-29 19:14] LABS: ARTERIAL BLOOD BASE EXCESS 3.3 mmol/L; ARTERIAL BLOOD H2CO3 1.57 mmol/L (1.05-1.35); ARTERIAL BLOOD HCO3 29.5 mmol/L (20-26); ARTERIAL BLOOD O2 SATURATION 97.7 % (94-98); ARTERIAL BLOOD PH 7.37 (7.35-7.45); ARTERIAL BLOOD PO2 107.7 mmHg (80-100); ARTERIAL BLOOD TOTAL CO2 31.1 mmol/L (21-25)
[2017-12-29 19:22] LABS: ARTERIAL BLOOD FIO2 3L
[2017-12-29] MEDS ORDERED: NORMAL SALINE 1000 ML 1,000 ML IV ONE (19:24)
[2017-12-29] MEDS ORDERED: LEVOFLOXACIN 750 MG/D5W RTU 750 MG/150 ML RTUPB IV ONE (19:36)
--- NOTE | 2017-12-29 19:46 | RADIOLOGY REPORT (SQ) ---
EXAM DESCRIPTION: CHEST PA/LAT COMPLETED DATE/TIME: 12/29/2017 7:23 pm REASON FOR STUDY: pneumonia COMPARISON: Prior chest films 11/22/2013, 02/04/2013, 08/07/2011, 06/15/2010 EXAM PARAMETERS: NUMBER OF VIEWS: two views TECHNIQUE: Digital Frontal and Lateral radiographic views of the chest acquired. RADIATION DOSE: NA LIMITATIONS: none FINDINGS: LUNGS AND PLEURA: Chronic scarring in the right mid and lower lung similar compared to 201 0. No acute infiltrates pleural effusions or pneumothorax. MEDIASTINUM AND HILAR STRUCTURES: No masses or contour abnormalities. HEART AND VASCULAR STRUCTURES: Heart normal size. No evidence for failure. BONES: Osteoporotic without compression deformity HARDWARE: None in the chest. OTHER: No other significant finding. IMPRESSION: Chronic scarring in the right mid and lower lung. No acute changes TECHNICAL DOCUMENTATION: JOB ID: [id number] [employer]- All Rights Reserved
[2017-12-29] MEDS ORDERED: ACETAMINOPHEN 325 MG TABLET PO PRN (20:39)
[2017-12-29] MEDS ORDERED: GUAIFENESIN SYRP 200 MG/10 ML UDC PO PRN (20:39)
[2017-12-29] MEDS ORDERED: IPRATROPIUM/ALBUTEROL 0.5-2.5 MG/3 ML AMPUL NEB PRN (20:39)
[2017-12-29] MEDS ORDERED: DILTIAZEM HCL 60 MG TABLET PO ONE (20:39)
[2017-12-29] MEDS ORDERED: HYDRALAZINE HCL INJ/PF 20 MG/1 ML SDV IV PRN (20:41)
[2017-12-29] MEDS: MAGNESIUM SULFATE/D5W 1 GM/100 ML RTUPB IV SCH ×2 (20:57→21:54)
[2017-12-29] MEDS: HEPARIN SOD (PORCINE) 5,000 UNIT/ML 1 ML SYRINGE SUBCUT SCH (21:55)
[2017-12-29] MEDS: FLUTICASONE NASAL SPRAY 50 MCG/SPRY 120 SPRAY/16 GM NASL SCH (22:11)
[2017-12-29 22:13] LABS: A TYPE INFLUENZA AG NEGATIVE (NEGATIVE); B INFLUENZA AG NEGATIVE (NEGATIVE)
[2017-12-30] MEDS: IPRATROPIUM/ALBUTEROL 0.5-2.5 MG/3 ML AMPUL NEB SCH ×4 (02:14→19:42)
[2017-12-30 05:18] LABS: ABSOLUTE LYMPHOCYTES (AUTO) 0.4 10^3/uL (0.5-4.7); ABSOLUTE NEUT (AUTO) 4.4 10^3/uL (1.7-8.2); BASOPHILS % (AUTO) 0.3 % (0-2); EOSINOPHILS % (AUTO) 0.1 % (0-6); HEMATOCRIT 36.6 % (36.0-47.0); LYMPHOCYTES % (AUTO) 8.7 % (13-45); MEAN CORPUSCULAR HEMOGLOBIN 28.6 pg (27.0-33.4); MEAN CORPUSCULAR HGB CONC 32.9 g/dL (32.0-36.0); MEAN CORPUSCULAR VOLUME 87 fl (80-97); MONOCYTES % (AUTO) 0.9 % (3-13); PLATELET COUNT 157 10^3/uL (150-450); RED CELL DISTRIBUTION WIDTH 14.4 % (11.5-14.0); TOTAL CELLS COUNTED % (AUTO) 100 %; WHITE BLOOD COUNT 4.9 10^3/uL (4.0-10.5)
--- NOTE | 2017-12-30 05:26 | PDOC H&P ---
History of Present Illness Admission Date/PCP: 12/29/17 20:56 Patient complains of: Shortness of breath History of Present Illness: HALEY LESTER is a 72 year old female who is a resident of the [facility], with a past medical history of hypertension, dyslipidemia, advanced Alzheimer's dementia and pulmonary sarcoidosis. The patient is unable to provide any history and subsequently it is obtained by the medical record. Upon EMS arrival to the patient's bedside she had oxygen saturations in the 50s with improvement on nasal cannula. In the emergency room she receives Solu-Medrol, albuterol and Atrovent with continued supplemental oxygen and is found to have hypercapnia with a PCO2 of 50 by ABG. She is referred to the hospitalist for observation. Past Medical History Cardiac Medical History: Reports: Hyperlipidema, Hypertension Denies: Coronary Artery Disease Pulmonary Medical History: Reports: Asthma, Chronic Obstructive Pulmonary Disease (COPD), Other - Pulmonary sarcoidosis Endocrine Medical History: Reports: Hypothyroidism Psychiatric Medical History: Reports: Dementia Past Surgical History Past Surgical History: Reports: Hysterectomy, Orthopedic Surgery - low back fusion Social History Information Source: [facility] Records Lives with: Senior [facility] Smoking Status: Unknown if Ever Smoked Frequency of Alcohol Use: None Drugs: None - Advance Directive Resuscitation Status: Do Not Resuscitate Family History Family History: Reviewed & Not Pertinent Parental Family History Reviewed: Yes Children Family History Reviewed: Yes Sibling(s) Family History Reviewed.: Yes Medication/Allergy Home Medications: Furosemide [Lasix 40 mg Tablet] 1 tab PO QAM 01/26/13 Benazepril HCl [Benazepril HCl] 1 tab PO BID 12/30/17 Betamet Diprop/Prop Gly [Betamethasone Dp Aug 0.05% Cream] 1 applic TP DAILY PRN 12/30/17 Calcium Carbonate/Vitamin D3 [Calcium 600 + Vit D Tablet] 1 tab PO DAILY Donepezil HCl [Donepezil HCl] 1 tab PO DAILY 12/30/17 Donepezil HCl [Donepezil HCl] 1 tab PO DAILY 12/30/17 Ferrous Sulfate 325 mg PO DAILY 12/30/17 Levothyroxine Sodium 1 tab PO DAILY 12/30/17 Memantine HCl 1 tab PO BID 12/30/17 Mineral Oil/Petrolatum,White [Minerin Creme] 1 cm .ROUTE BID 12/30/17 Verapamil HCl [Verapamil ER Pm] 1 cap PO QPM 12/30/17 Allergies/Adverse Reactions: No Known Allergies Allergy (Verified 12/01/17 23:53) Review of Systems ROS unobtainable: Due to mental status - Unobtainable secondary to dementia Physical Exam Vital Signs: Temp Pulse Resp BP Pulse Ox 97.7 F 72 20 101/65 97 12/29/17 17:51 12/30/17 02:14 12/30/17 02:14 12/30/17 01:00 12/30/17 02:14 Intake & Output 12/28/17 12/29/17 12/30/17 11:59 11:59 11:59 Weight 72.575 kg General appearance: PRESENT: mild distress, morbidly obese Head exam: PRESENT: atraumatic, normocephalic Eye exam: PRESENT: conjunctiva pink, EOMI, PERRLA. ABSENT: scleral icterus Ear exam: PRESENT: normal external ear exam Mouth exam: PRESENT: moist, tongue midline Neck exam: ABSENT: carotid bruit, JVD, lymphadenopathy, thyromegaly Respiratory exam: PRESENT: accessory muscle use, crackles, decreased breath sounds, rales, symmetrical, tachypnea. ABSENT: rhonchi, stridor, wheezes Cardiovascular exam: PRESENT: RRR. ABSENT: diastolic murmur, rubs, systolic murmur Pulses: PRESENT: normal dorsalis pedis pul Vascular exam: PRESENT: normal capillary refill GI/Abdominal exam: PRESENT: normal bowel sounds, soft. ABSENT: distended, guarding, mass, organolmegaly, rebound, tenderness Rectal exam: PRESENT: deferred Extremities exam: PRESENT: full ROM. ABSENT: calf tenderness, clubbing, pedal edema Neurological exam: PRESENT: CN II-XII grossly intact. ABSENT: alert, awake, oriented to person, oriented to place, oriented to time, oriented to situation, motor sensory deficit Psychiatric exam: PRESENT: flat affect Skin exam: PRESENT: dry, intact, warm. ABSENT: cyanosis, rash Results Impressions: Chest X-Ray 12/29/17 18:20 IMPRESSION: Chronic scarring in the right mid and lower lung. No acute changes Assessment & Plan - Diagnosis (2) Acute respiratory failure with hypoxia and hypercapnia Is this a current diagnosis for this admission?: Yes Plan: Likely multifactorial secondary to sarcoidosis, acute bronchitis and advanced dementia. Telemetry bed, supplemental oxygen, trial BiPAP, incentive spirometry and flutter valve doubt patient is able to participate given advanced dementia. (3) Hypoxemia Is this a current diagnosis for this admission?: Yes Plan: Supplemental oxygen as above (4) Respiratory distress Is this a current diagnosis for this admission?: Yes Plan: Supportive care supplemental oxygen and trial BiPAP (5) Sarcoidosis Is this a current diagnosis for this admission?: Yes Plan: Stress dose steroids initiated. - Time Time Spent: 50 to 70 Minutes - Inpatient Certification Medical Necessity: Need Close Monitoring Due to Risk of Patient Decompensation
[2017-12-30 05:37] LABS: ANION GAP 12 (5-19); BLOOD UREA NITROGEN 21 mg/dL (7-20); CALCIUM 9.6 mg/dL (8.4-10.2); CARBON DIOXIDE 24 mmol/L (22-30); CHLORIDE 106 mmol/L (98-107); GLUCOSE 181 mg/dL (75-110); POTASSIUM 4.4 mmol/L (3.6-5.0); SODIUM 141.8 mmol/L (137-145)
[2017-12-30] MEDS: HEPARIN SOD (PORCINE) 5,000 UNIT/ML 1 ML SYRINGE SUBCUT SCH ×3 (06:33→21:17)
[2017-12-30] MEDS: LEVOTHYROXINE SODIUM 0.075 MG TABLET PO SCH (06:34)
--- NOTE | 2017-12-30 07:49 | EKG REPORT ---
SEVERITY:- ABNORMAL ECG - SINUS TACHYCARDIA MULTIPLE VENTRICULAR PREMATURE COMPLEXES LEFT ANTERIOR FASCICULAR BLOCK LVH WITH SECONDARY REPOLARIZATION ABNORMALITY : Confirmed by: Adán Dukes MD 30-Dec-2017 07:48:12
[2017-12-30] MEDS ORDERED: METOPROLOL TARTRATE PF/INJ 5 MG/5 ML SDV IV ONE ×2 (07:56→08:11)
[2017-12-30] MEDS ORDERED: PREDNISONE 20 MG TABLET PO SCH (08:00)
[2017-12-30] MEDS ORDERED: ONDANSETRON HCL INJ/PF 4 MG/2 ML SDV IV PRN (08:01)
[2017-12-30] MEDS ORDERED: ONDANSETRON HCL INJ/PF 4 MG/2 ML SDV ONE (08:11)
--- NOTE | 2017-12-30 09:15 | Physician Advisory Note ---
Physician Advisor ProgressNote .: [facility], I have reviewed the medical record for this patient. Physician Advisor Statement: Very nice documentation of Ac Resp Failure w/details/supporting evidence. Please consider documenting, if you agree: 1. ? "Hypertensive urgency" vs. "Hypertensive emergency causing [end- organ effects]" 2. Medical necessity: "Pt resp status is not sufficiently stabilized for d/c today, needs at least a 2nd MN of hospital care & monitoring" Status: this Medicare pt has already spent 1 MN in hospital care, critical care , in ED. She continues to evidence persistent tachypnea. At last environmental health technician eval, at 05:43, she was still needing Bipap w/3L O2, & was still tachypneic despite that. She has underlying pulmonary sarcoidosis. The chances of her improving sufficiently before nightfall tonight for safe discharge sound, to this reviewer, nonexistent. If attending agrees, appropriate to change to Inpatient status today. Thanks! CK
[2017-12-30] MEDS ORDERED: LEVOFLOXACIN 750 MG/D5W RTU 750 MG/150 ML RTUPB IV SCH (10:00)
[2017-12-30] MEDS: FUROSEMIDE 40 MG TABLET PO SCH (10:09)
[2017-12-30] MEDS: SPIRONOLACTONE 25 MG TABLET PO SCH (10:26)
[2017-12-30] MEDS: AZITHROMYCIN 500 MG in DEXTROSE 5%-WATER 250 ML IV SCH (10:44)
[2017-12-30] MEDS: VERAPAMIL HCL 120 MG TABLET.SA PO SCH (11:23)
[2017-12-30] MEDS: POTASSIUM CHLORIDE 10 MEQ TABLET.SA PO SCH (11:27)
[2017-12-30] MEDS: THIAMINE HCL 100 MG TABLET PO SCH (11:44)
[2017-12-30] MEDS: DOCUSATE SODIUM 100 MG CAPSULE PO SCH (11:45)
[2017-12-30] MEDS: GEMFIBROZIL 600 MG TABLET PO SCH ×2 (11:45→17:17)
[2017-12-30] MEDS: PREDNISONE 20 MG TABLET PO SCH ×2 (11:46→17:17)
[2017-12-30] MEDS: FLUTICASONE NASAL SPRAY 50 MCG/SPRY 120 SPRAY/16 GM NASL SCH ×2 (17:16→21:17)
--- NOTE | 2017-12-30 18:52 | PDOC PROGRESS REPORT ---
Subjective Progress Note for:: 12/30/17 Subjective:: This AM while in the ED, became hypertensive after taking BiPAP off and trying to eat. Received IV anti-hypertensives with improvement in BP. Moved to [facility] around 5pm. Doing better. Stil requiring 4L O2. No O2 requirement at baseline. Reason For Visit: COPD, SARCOID EXACERBATION ACUTE BRONCHITIS Physical Exam Vital Signs: Temp Pulse Resp BP Pulse Ox 98.7 F 95 20 116/67 96 12/30/17 14:53 12/30/17 14:53 12/30/17 14:53 12/30/17 14:53 12/30/17 14:53 Intake & Output 12/29/17 12/30/17 12/31/17 06:59 06:59 06:59 Intake Total 10 Balance 10 General appearance: PRESENT: no acute distress, other - Pleasantly demented Head exam: PRESENT: normocephalic Mouth exam: PRESENT: moist Respiratory exam: PRESENT: crackles - Occasional, unlabored, other - On supplemental O2 Cardiovascular exam: PRESENT: RRR. ABSENT: tachycardia GI/Abdominal exam: PRESENT: soft. ABSENT: tenderness Neurological exam: PRESENT: awake. ABSENT: oriented to person, oriented to place, oriented to time Results Impressions: Chest X-Ray 12/29/17 18:20 IMPRESSION: Chronic scarring in the right mid and lower lung. No acute changes Assessment & Plan - Diagnosis (1) Acute respiratory failure with hypoxia and hypercapnia Is this a current diagnosis for this admission?: Yes Plan: Improved with BiPap. Currently on 4L NC, continue to wean down as tolerated. Goal O2>90% - Encouraged to use BiPAP again tonight - Continue Duonebs, Levofloxacin, and Azithro - Lasix ordered daily (2) Dementia Qualifiers: Dementia type: Alzheimer's disease Is this a current diagnosis for this admission?: Yes Plan: At baseline (3) Sarcoidosis Is this a current diagnosis for this admission?: Yes Plan: At baseline - Time Time Spent with patient: Less than 15 minutes Anticipated discharge: SNF Within: within 48 hours - Inpatient Certification Based on my medical assessment, after consideration of the patient's comorbidities, presenting symptoms, or acuity I expect that the services needed warrant INPATIENT care.: Yes I certify that my determination is in accordance with my understanding of Medicare's requirements for reasonable and necessary INPATIENT services [42 CFR 412.3e].: Yes Medical Necessity: Need Close Monitoring Due to Risk of Patient Decompensation
[2017-12-31] MEDS: IPRATROPIUM/ALBUTEROL 0.5-2.5 MG/3 ML AMPUL NEB SCH ×4 (01:53→19:36)
[2017-12-31] MEDS: LEVOTHYROXINE SODIUM 0.075 MG TABLET PO SCH (06:07)
[2017-12-31] MEDS: HEPARIN SOD (PORCINE) 5,000 UNIT/ML 1 ML SYRINGE SUBCUT SCH ×3 (06:07→21:24)
[2017-12-31] MEDS: AZITHROMYCIN 500 MG in DEXTROSE 5%-WATER 250 ML IV SCH (09:39)
[2017-12-31] MEDS: FUROSEMIDE 40 MG TABLET PO SCH (09:39)
[2017-12-31] MEDS: DOCUSATE SODIUM 100 MG CAPSULE PO SCH (09:43)
[2017-12-31] MEDS: GEMFIBROZIL 600 MG TABLET PO SCH ×2 (09:43→18:22)
[2017-12-31] MEDS: THIAMINE HCL 100 MG TABLET PO SCH (09:43)
[2017-12-31] MEDS: PREDNISONE 20 MG TABLET PO SCH (09:44)
[2017-12-31] MEDS: POTASSIUM CHLORIDE 10 MEQ TABLET.SA PO SCH (09:44)
[2017-12-31] MEDS: VERAPAMIL HCL 120 MG TABLET.SA PO SCH (09:45)
[2017-12-31] MEDS: SPIRONOLACTONE 25 MG TABLET PO SCH (09:45)
[2017-12-31] MEDS: FLUTICASONE NASAL SPRAY 50 MCG/SPRY 120 SPRAY/16 GM NASL SCH ×2 (09:46→21:24)
--- NOTE | 2017-12-31 12:20 | PDOC PROGRESS REPORT ---
Subjective Progress Note for:: 12/31/17 Subjective:: The patient is a 72-year-old female who is a resident of the [facility] with a past medical history of hypertension, dyslipidemia, advanced Alzheimer's dementia, and pulmonary sarcoidosis who was admitted on 12/29/17 for acute on chronic respiratory failure with hypercapnia and hypoxia secondary to pulmonary sarcoidosis with acute bronchitis flare. The patient is seen on morning rounds. She is found resting in bed on supplemental oxygen via nasal cannula at 4 L/min. She is noted to be tachypneic in the high 20s-30s. She is alert and oriented to self, place, and situation at this time. She very clearly states to me that she wishes to be a DNR/DNI. She states that she does not like wearing BiPAP but will place it back on. She states that she is actually feeling much better than yesterday. Her does confirm that she appears to be less dyspneic, more alert, and less confused today. They have no other questions or concerns today. Reason For Visit: COPD, SARCOID EXACERBATION ACUTE BRONCHITIS Physical Exam Vital Signs: Temp Pulse Resp BP Pulse Ox 97.9 F 85 18 142/84 H 100 12/31/17 07:23 12/31/17 08:53 12/31/17 07:38 12/31/17 07:23 12/31/17 08:53 Intake & Output 12/30/17 12/31/17 01/01/18 06:59 06:59 06:59 Intake Total 513 Balance 513 Weight 72.6 kg General appearance: PRESENT: mild distress, well-developed, well-nourished, other - Overweight Head exam: PRESENT: atraumatic, normocephalic Eye exam: PRESENT: conjunctiva pink, EOMI, PERRLA. ABSENT: scleral icterus Ear exam: PRESENT: normal external ear exam Mouth exam: PRESENT: moist, tongue midline Neck exam: ABSENT: carotid bruit, JVD, lymphadenopathy, thyromegaly Respiratory exam: PRESENT: decreased breath sounds, rhonchi - Throughout, symmetrical, tachypnea, wheezes - Inspiratory and expiratory wheezing throughout , other - Shallow. Patient is agreeable to resume BiPAP at this time.. ABSENT : rales Cardiovascular exam: PRESENT: RRR, +S1, +S2. ABSENT: diastolic murmur, rubs, systolic murmur Pulses: PRESENT: normal dorsalis pedis pul Vascular exam: PRESENT: normal capillary refill GI/Abdominal exam: PRESENT: normal bowel sounds, soft. ABSENT: distended, guarding, mass, organolmegaly, rebound, tenderness Rectal exam: PRESENT: deferred Extremities exam: PRESENT: full ROM. ABSENT: calf tenderness, clubbing, pedal edema Neurological exam: PRESENT: alert, awake, oriented to person, oriented to place , oriented to situation, CN II-XII grossly intact. ABSENT: motor sensory deficit Psychiatric exam: PRESENT: appropriate affect, normal mood. ABSENT: homicidal ideation, suicidal ideation Skin exam: PRESENT: dry, intact, warm. ABSENT: cyanosis, rash Results Impressions: Chest X-Ray 12/29/17 18:20 IMPRESSION: Chronic scarring in the right mid and lower lung. No acute changes Assessment & Plan - Diagnosis (1) Acute respiratory failure with hypoxia and hypercapnia Is this a current diagnosis for this admission?: Yes Plan: Acute respiratory failure with hypoxia and hypercapnia in area to pulmonary sarcoidosis and bronchitis. Improved with BiPAP; however the patient is noted to have tachypnea in the 30s when transitioned to nasal cannula. Continue BiPAP nightly and as needed. Supplemental oxygen as needed to maintain oxygen saturations greater than 92%. Continue azithromycin; will transition to p.o. today. Continue scheduled and as needed DuoNeb treatments. We will increase steroids to Solu-Medrol 40 mg every 8 hours. (2) Sarcoidosis Is this a current diagnosis for this admission?: Yes Plan: Plan as above. (3) Dementia Qualifiers: Dementia type: Alzheimer's disease Is this a current diagnosis for this admission?: Yes Plan: At the patient's baseline; patient's states that she appears to be more alert and oriented today. Provide supportive care; fall precautions. We will continue the patient's home dose Namenda. (4) Hypothyroidism Is this a current diagnosis for this admission?: Yes Plan: We will continue the patient's Synthroid. (5) Hypertension Is this a current diagnosis for this admission?: Yes Plan: Adequately controlled. BP 142/84 Continue spironolactone 12.5 mg p.o. daily Continue verapamil 180 mg p.o. daily Continue furosemide 40 mg p.o. every morning Hydralazine 10 mg IV every 6 hours as needed blood pressure control. - Time Time Spent with patient: 25-34 minutes Medications reviewed and adjusted accordingly: Yes Anticipated discharge: Other - [facility] - Inpatient Certification Based on my medical assessment, after consideration of the patient's comorbidities, presenting symptoms, or acuity I expect that the services needed warrant INPATIENT care.: Yes I certify that my determination is in accordance with my understanding of Medicare's requirements for reasonable and necessary INPATIENT services [42 CFR 412.3e].: Yes Medical Necessity: Failure to Improve With Outpatient Therapy, Need Close Monitoring Due to Risk of Patient Decompensation, Need for Nebulizer Therapy and Monitoring of Response
[2017-12-31] MEDS ORDERED: METHYLPREDNISOLONE INJ 40 MG/1 ML SDV IV SCH ×2 (14:00)
[2017-12-31] MEDS: MEMANTINE HCL 10 MG TABLET PO SCH (18:33)
--- NOTE | 2017-12-31 19:29 | RADIOLOGY REPORT (SQ) ---
EXAM DESCRIPTION: CT CHEST WITHOUT COMPLETED DATE/TIME: 12/31/2017 6:01 pm REASON FOR STUDY: Shortness of breath COMPARISON: 08/04/2012 TECHNIQUE: CT scan performed of the chest without intravenous contrast. Images reviewed with lung, soft tissue and bone windows. Reconstructed coronal and sagittal MPR images reviewed. All images st ored on PACS. All CT scanners at this facility use dose modulation, iterative reconstruction, and/or weight based d osing when appropriate to reduce radiation dose to as low as reasonably achievable (ALARA). [facility]: Dose Right [facility]: CareDose [facility]: Dose Right [facility]: Teradose 4D [facility]: Smart Approva RADIATION DOSE: CT Rad equipment meets quality standard of care and radiation dose reduction techniq ues were employed. CTDIvol: 14.9 mGy. DLP: 583 mGy-cm. mGy. LIMITATIONS: Motion artifact. FINDINGS: LUNGS AND PLEURA: Small right effusion versus pleural thickening superiorly. No left effu abel. Stable scarring on the left in the parahilar region and upper lobe with scattered small stable nodules seen in the left lung. In the right lung, there is again parahilar scarring some of which i s improved. Scattered small nodules are seen many of which are stable. Just posterior to the right hilum, there is a 1.8 cm spiculated density which appears more prominent than on the prior study, pro bably scarring. Inferiorly there is a 1.5 cm somewhat nodular density probably related to active pne umonia. Possibility of active tuberculosis should be considered. Mass cannot be excluded and three- month follow-up is recommended. HILAR AND MEDIASTINAL STRUCTURES: Calcified mediastinal and hilar lymph nodes. No evidence of active adenopathy. HEART AND VASCULAR STRUCTURES: No aneurysm. No pericardial effusion. UPPER ABDOMEN: Probable small calcified gallstones. THYROID AND OTHER SOFT TISSUES: No masses. No adenopathy. BONES: No significant finding. HARDWARE: None in the chest. OTHER: No other significant findings. IMPRESSION: 1. Previous granulomatous disease with parahilar scarring. 2. New abnormal density in the right lower lobe suggesting active pneumonia with small associated ri ght effusion. Active tuberculosis is a consideration. There is a nodular component and [address] is recommended. TECHNICAL DOCUMENTATION: JOB ID: [id number] Quality ID # [id number]: Final reports with documentation of one or more dose reduction techniques (e.g., Au tomated exposure control, adjustment of the mA and/or kV according to patient size, use of iterative reconstruction technique) 2010 [employer]- All Rights Reserved
[2017-12-31] MEDS: METHYLPREDNISOLONE INJ 40 MG/1 ML SDV IV SCH (21:24)
[2018-01-01 00:03] LABS: ARTERIAL BLOOD BASE EXCESS 5.2 mmol/L; ARTERIAL BLOOD HCO3 31.4 mmol/L (20-26); ARTERIAL BLOOD PCO2 53.1 mmHg (35-45); ARTERIAL BLOOD PH 7.39 (7.35-7.45); ARTERIAL BLOOD PO2 111.2 mmHg (80-100); ARTERIAL BLOOD TOTAL CO2 33.1 mmol/L (21-25)
[2018-01-01 00:05] LABS: ARTERIAL BLOOD FIO2 35%
[2018-01-01] MEDS: IPRATROPIUM/ALBUTEROL 0.5-2.5 MG/3 ML AMPUL NEB SCH ×4 (01:43→20:39)
[2018-01-01 05:04] LABS: HEMATOCRIT 39.2 % (36.0-47.0); HEMOGLOBIN 13.1 g/dL (12.0-15.5); MEAN CORPUSCULAR HEMOGLOBIN 28.8 pg (27.0-33.4); MEAN CORPUSCULAR HGB CONC 33.3 g/dL (32.0-36.0); MEAN CORPUSCULAR VOLUME 87 fl (80-97); PLATELET COUNT 142 10^3/uL (150-450); RED BLOOD COUNT 4.53 10^6/uL (3.72-5.28); RED CELL DISTRIBUTION WIDTH 14.2 % (11.5-14.0); WHITE BLOOD COUNT 9.8 10^3/uL (4.0-10.5)
[2018-01-01 05:27] LABS: ANION GAP 10 (5-19); BLOOD UREA NITROGEN 24 mg/dL (7-20); CALCIUM 9.4 mg/dL (8.4-10.2); CARBON DIOXIDE 32 mmol/L (22-30); CHLORIDE 101 mmol/L (98-107); GLUCOSE 155 mg/dL (75-110); POTASSIUM 4.3 mmol/L (3.6-5.0); SODIUM 142.6 mmol/L (137-145)
[2018-01-01] MEDS: HEPARIN SOD (PORCINE) 5,000 UNIT/ML 1 ML SYRINGE SUBCUT SCH ×3 (06:13→21:38)
[2018-01-01] MEDS: METHYLPREDNISOLONE INJ 40 MG/1 ML SDV IV SCH (06:13)
[2018-01-01] MEDS: LEVOTHYROXINE SODIUM 0.075 MG TABLET PO SCH (06:13)
[2018-01-01] MEDS: FUROSEMIDE 40 MG TABLET PO SCH (09:42)
[2018-01-01] MEDS: GEMFIBROZIL 600 MG TABLET PO SCH ×2 (09:43→18:06)
[2018-01-01] MEDS: SPIRONOLACTONE 25 MG TABLET PO SCH (09:44)
[2018-01-01] MEDS: VERAPAMIL HCL 120 MG TABLET.SA PO SCH ×2 (09:44→21:38)
[2018-01-01] MEDS: MEMANTINE HCL 10 MG TABLET PO SCH ×2 (09:44→18:06)
[2018-01-01] MEDS: DOCUSATE SODIUM 100 MG CAPSULE PO SCH (09:44)
[2018-01-01] MEDS: THIAMINE HCL 100 MG TABLET PO SCH (09:44)
[2018-01-01] MEDS: POTASSIUM CHLORIDE 10 MEQ TABLET.SA PO SCH (09:45)
[2018-01-01] MEDS: FLUTICASONE NASAL SPRAY 50 MCG/SPRY 120 SPRAY/16 GM NASL SCH ×2 (09:45→21:38)
[2018-01-01] MEDS ORDERED: AZITHROMYCIN 250 MG TABLET PO SCH (10:00)
[2018-01-01] MEDS ORDERED: LEVOFLOXACIN 750 MG TABLET PO SCH (10:00)
[2018-01-01] MEDS ORDERED: POTASSIUM CHLORIDE 20 MEQ/15 ML UDCUP PO SCH (10:00)
[2018-01-01] MEDS ORDERED: MAGNESIUM HYDROXIDE SUSP 30 ML UDCUP PO PRN (12:29)
[2018-01-01] MEDS ORDERED: ACETAMINOPHEN 325 MG TABLET PO PRN (12:29)
--- NOTE | 2018-01-01 12:53 | PROGRESS NOTE E ---
Progress Note NAME: HALEY LESTER : 1945 AGE: 72Y DATE: 01/01/2018 ROOM: 302 SUBJECTIVE: The patient is lying in bed. The patient's family is present at the bedside, active in the patient's care. Patient is on BiPAP and appears overall comfortable at this time. The patient apparently was off the BiPAP for breakfast and appeared to do well with it. The patient has been afebrile. Her blood pressures have been in the good range. The patient has been oxygenating about 99% on 35% FIO2. REVIEW OF SYSTEMS: Unobtainable. MEDICATIONS: Medications have been reviewed. OBJECTIVE: GENERAL: The patient is a 72-year-old female who is awake, alert. Unable to fully assess orientation. She is quite flat. Dementia is at baseline. VITAL SIGNS FOLLOWS: Temperature is 98.1. Pulse 72. Respirations 16. Blood pressure is 115/61. Oxygen saturation 99% on 35% FIO2. SKIN: Warm and dry. No rash. She is not diaphoretic. HEENT: Pupils equal, round and reactive to light and accommodation. Conjunctivae are pink. Mask in place. NECK: There is no evidence of JVP. CHEST: Diminished, symmetrical, unlabored. ABDOMEN: Soft, nontender, nondistended. BACK: No CVA tenderness or sacral edema. EXTREMITIES: No clubbing, cyanosis, edema. HEART: Regular. No rub. PSYCHIATRIC: The patient does have a flat affect. DIAGNOSTICS: Lab values are as follows. Hematology obtained on 01/01/2018: WBCs are 9.8. Hemoglobin is 13.1. Hematocrit is 29.5. Platelet count is 142,000. Chemistry obtained on 01/01/2018: Sodium is 142. Potassium 4.3. Chloride is 101. Carbon dioxide 32. BUN 42. Creatinine is 0.71. Glucose 155. Calcium is 9.4. IMPRESSION AND PLAN: 1. ACUTE SARCOIDOSIS EXACERBATION. Will transition patient back to nasal cannula, repeat blood gas this afternoon, and follow. 2. [id number] HYPOXEMIC AND HYPERCAPNIC RESPIRATORY FAILURE, OVERALL MUCH IMPROVED. The patient did very well with BiPAP. Will again give a trial to transition back to nasal cannula and follow. The patient continues on nebulizers and steroids. 3. ALZHEIMER'S DEMENTIA. Continue supportive therapy. 4. HYPOTHYROIDISM. Continue levothyroxine. 5. HYPERTENSION. Blood pressure is in acceptable range. Continue current medications. DISPOSITION: The patient is a DO NOT RESUSCITATE, DO NOT INTUBATE. Pending patient's symptomatology and diagnostic findings, will reevaluate in the a.m. TIME SPENT: Time spent on this followup including assessment, plan, physical examination, patient education, review of records is 25 minutes. DICTATING PHYSICIAN: INES HUANG NP [id number] PHY#: [id number] ID: [id number] JOB#: [id number] ACCT: [id number] cc: >
[2018-01-01] MEDS ORDERED: LORAZEPAM 0.5 MG TABLET PO PRN (13:33)
[2018-01-01] MEDS ORDERED: ONDANSETRON HCL INJ/PF 4 MG/2 ML SDV IV PRN (14:00)
[2018-01-01] MEDS: METHYLPREDNISOLONE INJ 125 MG/2 ML SDV IV SCH ×2 (14:28→21:38)
[2018-01-01 16:24] LABS: VENOUS BLOOD BASE EXCESS 6.5 mmol/L; VENOUS BLOOD HCO3 31.6 mmol/L (20-32); VENOUS BLOOD PH 7.45 (7.30-7.42)
[2018-01-01] MEDS: MIRTAZAPINE 15 MG TABLET PO SCH (21:38)
[2018-01-01] MEDS: VERAPAMIL HCL 180 MG TABLET.SA PO SCH (21:38)
[2018-01-01] MEDS: RISPERIDONE 0.25 MG TABLET PO SCH (21:38)
[2018-01-01] MEDS: BENAZEPRIL HCL 20 MG TABLET PO SCH (21:38)
[2018-01-01] MEDS ORDERED: VERAPAMIL HCL 300 MG PO SCH (22:00)
[2018-01-01] MEDS ORDERED: (PENDING PHARMACY ID) (Risperidone [Risperdal] 0.5 MG) PO SCH (22:00)
[2018-01-01] MEDS ORDERED: VERAPAMIL HCL 180 MG TABLET.SA PO SCH (22:00)
[2018-01-01] MEDS ORDERED: VERAPAMIL HCL 120 MG TABLET.SA PO SCH (22:00)
[2018-01-02] MEDS: IPRATROPIUM/ALBUTEROL 0.5-2.5 MG/3 ML AMPUL NEB SCH ×4 (01:53→19:48)
[2018-01-02] MEDS: METHYLPREDNISOLONE INJ 125 MG/2 ML SDV IV SCH ×2 (05:17→14:58)
[2018-01-02] MEDS: LEVOTHYROXINE SODIUM 0.1 MG TABLET PO SCH (05:17)
[2018-01-02] MEDS: HEPARIN SOD (PORCINE) 5,000 UNIT/ML 1 ML SYRINGE SUBCUT SCH ×3 (05:17→21:32)
[2018-01-02] MEDS: LEVOTHYROXINE SODIUM 0.025 MG TABLET PO SCH (05:17)
[2018-01-02] MEDS ORDERED: (PENDING PHARMACY ID) (Levothyroxine Sodium [Synthroid] 125 MCG) PO SCH (06:00)
[2018-01-02] MEDS: CHOLECALCIFEROL (D3) 1,000 UNIT TABLET PO SCH (09:33)
[2018-01-02] MEDS: CALCIUM CARBONATE 500 MG TABLET PO SCH (09:33)
[2018-01-02] MEDS: DONEPEZIL HCL 5 MG TABLET PO SCH (09:33)
[2018-01-02] MEDS: SPIRONOLACTONE 25 MG TABLET PO SCH (09:34)
[2018-01-02] MEDS: BENAZEPRIL HCL 20 MG TABLET PO SCH ×2 (09:34→21:32)
[2018-01-02] MEDS: THIAMINE HCL 100 MG TABLET PO SCH (09:34)
[2018-01-02] MEDS: FERROUS SULFATE 325 MG TABLET PO SCH (09:34)
[2018-01-02] MEDS: MEMANTINE HCL 10 MG TABLET PO SCH ×2 (09:34→17:18)
[2018-01-02] MEDS: GEMFIBROZIL 600 MG TABLET PO SCH ×2 (09:34→17:18)
[2018-01-02] MEDS: RISPERIDONE 0.25 MG TABLET PO SCH ×2 (09:34→21:32)
[2018-01-02] MEDS: FUROSEMIDE 40 MG TABLET PO SCH (09:34)
[2018-01-02] MEDS: DOCUSATE SODIUM 100 MG CAPSULE PO SCH (09:35)
[2018-01-02] MEDS: FLUTICASONE NASAL SPRAY 50 MCG/SPRY 120 SPRAY/16 GM NASL SCH ×2 (09:35→21:32)
[2018-01-02] MEDS: POTASSIUM CHLORIDE 20 MEQ/15 ML UDCUP PO SCH (09:35)
[2018-01-02] MEDS ORDERED: (PENDING PHARMACY ID) (Cholecalciferol (Vitamin D3) [Vitamin D3] 5,000 UNIT) PO SCH (10:00)
[2018-01-02] MEDS ORDERED: (PENDING PHARMACY ID) (Calcium Carbonate [Calcium] 600 MG) PO SCH (10:00)
[2018-01-02] MEDS ORDERED: (PENDING PHARMACY ID) (Donepezil Hcl [Aricept] 10 MG) PO SCH (10:00)
[2018-01-02] MEDS ORDERED: POTASSIUM CHLORIDE 10 MEQ TABLET.SA PO SCH (10:00)
[2018-01-02] MEDS ORDERED: (PENDING PHARMACY ID) (Potassium Chloride [K-Tab Er] 20 MEQ) PO SCH (10:00)
--- NOTE | 2018-01-02 15:28 | PROGRESS NOTE E ---
Progress Note NAME: HALEY LESTER : 1945 AGE: 72Y DATE: 01/02/2018 ROOM: 302 SUBJECTIVE: The patient is currently lying in bed. She does feel a little better today. The patient has had no reported episodes of vomiting nor diarrhea. The patient has been afebrile. Her blood pressures have overall been much improved, and the patient does not voice any concerns at this time. The patient's is present at the bedside and active in the patient's care. REVIEW OF SYSTEMS: Rest of the review of systems negative. MEDICATIONS: Have been reviewed. OBJECTIVE: GENERAL: The patient is a 72-year-old female who is awake and alert. She is oriented to self but not fully oriented to situation. She does not appear to be distressed. VITAL SIGNS: Temperature 98.5, pulse 71, respirations 28, blood pressure 121/67, oxygen saturation is 97% on 2 L nasal cannula. SKIN: Pale and dry. No rash. She is not diaphoretic. HEENT: Pupils are reactive. There is no evidence of JVP. CARDIOVASCULAR: Heart is regular with no rub. CHEST: Diminished, symmetrical, unlabored. ABDOMEN: Soft, nontender, nondistended. BACK: No CVA tenderness or sacral edema. EXTREMITIES: No clubbing, cyanosis, or edema. PSYCHIATRIC: The patient is at her baseline. DIAGNOSTICS: Lab values are as follows. Hematology obtained on 01/01/2018: WBCs are 9.8, hemoglobin is 13.1, hematocrit is 29.2, platelet count is 142,000. Chemistry obtained on 01/01/2018: Sodium is 142, potassium 4.3, chloride is 101, carbon dioxide 32, BUN 24, creatinine is 0.71, glucose 155, calcium is 9.4. IMPRESSION AND PLAN: 1. ACUTE SARCOIDOSIS EXACERBATION. The patient has been transitioned to nasal cannula. Will aggressively titrate. The patient does not wear O2 at home and family really does not want the patient to have oxygen unless she absolutely needs it. Decreased the flow to 3 L while in the room. Follow. 2. [id number] HYPOXEMIC AND HYPERCAPNIC RESPIRATORY FAILURE, OVERALL MUCH IMPROVED. Will go ahead and discontinue the BiPAP and monitor the patient's mentation in the a.m. Will transition steroids to oral. 3. ALZHEIMER'S DEMENTIA. Continue supportive care. 4. HYPOTHYROIDISM. Continue levothyroxine. 5. HYPERTENSION. The patient's blood pressure is in acceptable range. DISPOSITION: The patient is a DO NOT RESUSCITATE/DO NOT INTUBATE. The patient can go back to her rehab facility in the a.m. Family is hesitant for her to go back to the [facility]. It is just too early. Time spent on this followup including assessment, plan, physical examination, patient education, review of records, and family meeting is 35 minutes. DICTATING PHYSICIAN: INES HUANG NP [id number] PHY#: [id number] ID: [id number] JOB#: [id number] ACCT: [id number] cc: > MTDD
[2018-01-02] MEDS: PREDNISONE 20 MG TABLET PO SCH (17:18)
[2018-01-02] MEDS: MIRTAZAPINE 15 MG TABLET PO SCH (21:32)
[2018-01-02] MEDS: VERAPAMIL HCL 120 MG TABLET.SA PO SCH (21:32)
[2018-01-02] MEDS: VERAPAMIL HCL 180 MG TABLET.SA PO SCH (21:32)
[2018-01-03] MEDS: IPRATROPIUM/ALBUTEROL 0.5-2.5 MG/3 ML AMPUL NEB SCH ×3 (02:03→13:59)
[2018-01-03] MEDS: LEVOTHYROXINE SODIUM 0.1 MG TABLET PO SCH (05:38)
[2018-01-03] MEDS: HEPARIN SOD (PORCINE) 5,000 UNIT/ML 1 ML SYRINGE SUBCUT SCH ×2 (05:38→14:00)
[2018-01-03] MEDS: LEVOTHYROXINE SODIUM 0.025 MG TABLET PO SCH (05:38)
[2018-01-03] MEDS: CALCIUM CARBONATE 500 MG TABLET PO SCH (08:43)
--- NOTE | 2018-01-03 10:12 | PDOC DISCHARGE SUMMARY ---
General - Admit/Disc Date/PCP Admission Date/Primary Care Provider: 12/30/17 15:28 Discharge Date: 01/03/18 - Discharge Diagnosis (1) Acute respiratory failure with hypoxia and hypercapnia Is this a current diagnosis for this admission?: Yes (2) Dementia Is this a current diagnosis for this admission?: Yes (3) Hypertension Is this a current diagnosis for this admission?: Yes (4) Hypothyroidism Is this a current diagnosis for this admission?: Yes (5) Sarcoidosis Is this a current diagnosis for this admission?: Yes - Additional Information Resuscitation Status: Do Not Resuscitate Discharge Diet: Cardiac Discharge Activity: Activity As Tolerated Prescriptions: Mirtazapine [Remeron] 30 mg PO QHS #14 tablet Methylprednisolone [Medrol Dosepack (4 mg/Tab) 21 Tab/Dosepak] 4 mg PO ASDIR PRN #21 tab.ds.pk PRN Reason: Home Medications: Acetaminophen [Tylenol 325 mg Tablet] 325 mg PO Q6HP PRN 12/30/17 Benazepril HCl [Lotensin 20 mg Tablet] 20 mg PO Q12 12/30/17 Betamethasone Dipropionate [Diprosone Cream] 1 applic TOP BID 12/30/17 Calcium Carbonate [Calcium] 600 mg PO DAILY 12/30/17 Cholecalciferol (Vitamin D3) [Vitamin D3] 5,000 unit PO DAILY 12/30/17 Cold Cream/Zinc Oxide/Star/Art [Dermacloud Ointment] 1 applic TOP DAILY Donepezil HCl [Aricept] 10 mg PO DAILY 12/30/17 Ferrous Sulfate [Feosol 325 mg Tablet] 325 mg PO DAILY 12/30/17 Furosemide [Lasix 40 mg Tablet] 40 mg PO DAILY 12/30/17 Levothyroxine Sodium [Synthroid] 125 mcg PO Q6AM 12/30/17 Magnesium Hydroxide [Milk of Magnesia 30 ml Udcup] 30 ml PO DAILYP PRN 12/30/17 Memantine HCl [Namenda 10 mg Tablet] 10 mg PO BID 12/30/17 Mineral Oil/Petrolatum,White [Minerin Creme] 1 applic TOP BID 12/30/17 Potassium Chloride [K-Tab ER] 20 meq PO DAILY 12/30/17 Risperidone [Risperdal] 0.5 mg PO Q12 12/30/17 Verapamil HCl [Verapamil ER Pm] 300 mg PO QHS 12/30/17 Docusate Sodium [Colace 100 mg Capsule] 100 mg PO DAILY capsule 01/03/18 Fluticasone Propionate [Flonase Nasal [place] 50 Mcg/[place]ster 16 gm] 2 spray NASL Q12 spray.pump 01/03/18 Guaifenesin [Robitussin Syrup 200 mg/10 ml Ud Cup] 200 mg PO Q4HP PRN udc 01/03 Ipratropium/Albuterol Sulfate [Duoneb 3 ml Ampul] 3 ml NEB [id number] PRN vial.neb 01/03/18 Ipratropium/Albuterol Sulfate [Duoneb 3 ml Ampul] 3 ml NEB RTQ6 vial.neb Levothyroxine Sodium [Synthroid 0.1 mg Tablet] 0.1 mg PO Q6AM tablet 01/03/18 Methylprednisolone [Medrol Dosepack (4 mg/Tab) 21 Tab/Dosepak] 4 mg PO ASDIR PRN #21 tab.ds.pk 01/03/18 Mirtazapine [Remeron] 30 mg PO QHS #14 tablet 01/03/18 Thiamine HCl [Thiamine 100 mg Tablet] 100 mg PO DAILY tablet 01/03/18 History of Present Illness History of Present Illness: HALEY LESTER is a 72 year old female Who was admitted with difficulty breathing and shortness of breath. Hospital Course Hospital Course: Patient was thought to have an acute sarcoidosis exacerbation and she was started on steroids as well as bronchodilators and oxygen support. Oxygen is slowly being down titrated and she is currently off oxygen at the time of my exam. Appears her breathing has improved and stabilized. Was initially placed on BiPAP but this has been discontinued with patient's respiratory status remaining stable. And does have underlying dementia so she is prone to outbursts of crying but this is at baseline. This time there is really no other interventions planned so she is being discharged back to the nursing facility in stable condition. Patient is a DO NOT RESUSCITATE Physical Exam Vital Signs: Temp Pulse Resp BP Pulse Ox 97.6 F 78 18 144/65 H 96 01/03/18 04:00 01/03/18 07:00 01/03/18 04:00 01/03/18 04:00 02/24/18 04:00 Intake & Output 01/02/18 01/03/18 01/04/18 06:59 06:59 06:59 Intake Total 1584 990 Balance 1584 990 Weight 74.6 kg General appearance: PRESENT: no acute distress Head exam: PRESENT: atraumatic Eye exam: PRESENT: conjunctival injection, PERRLA Neck exam: ABSENT: carotid bruit, JVD, lymphadenopathy, thyromegaly Respiratory exam: PRESENT: decreased breath sounds, symmetrical. ABSENT: rales , rhonchi Cardiovascular exam: PRESENT: RRR. ABSENT: diastolic murmur, rubs, systolic murmur Pulses: PRESENT: normal dorsalis pedis pul GI/Abdominal exam: PRESENT: normal bowel sounds, soft. ABSENT: distended, guarding, mass, organolmegaly, rebound, tenderness Rectal exam: PRESENT: deferred Extremities exam: PRESENT: full ROM. ABSENT: calf tenderness, clubbing, pedal edema Neurological exam: PRESENT: alert, oriented to place, oriented to situation. ABSENT: oriented to time Focused psych exam: PRESENT: other - crying episodes Results Laboratory Results: 01/01/18 04:25 01/01/18 04:25 Impressions: Chest X-Ray 12/29/17 18:20 IMPRESSION: Chronic scarring in the right mid and lower lung. No acute changes Chest CT 12/31/17 00:00 IMPRESSION: 1. Previous granulomatous disease with parahilar scarring. 2. New abnormal density in the right lower lobe suggesting active pneumonia with small associated right effusion. Active tuberculosis is a consideration. There is a nodular component and [address] is recommended. Qualifiers - * PATEINT BEING DISCHARGED WITH ANY OF THE FOLLOWING DIAGNOSIS?: No Plan Discharge Plan: DC to [facility] Time Spent: Greater than 30 Minutes
[2018-01-03 10:39] VITALS: BP 144/76
[2018-01-03] MEDS: FERROUS SULFATE 325 MG TABLET PO SCH (10:43)
[2018-01-03] MEDS: POTASSIUM CHLORIDE 20 MEQ/15 ML UDCUP PO SCH (10:43)
[2018-01-03] MEDS: DOCUSATE SODIUM 100 MG CAPSULE PO SCH (10:43)
[2018-01-03] MEDS: THIAMINE HCL 100 MG TABLET PO SCH (10:43)
[2018-01-03] MEDS: SPIRONOLACTONE 25 MG TABLET PO SCH (10:44)
[2018-01-03] MEDS: GEMFIBROZIL 600 MG TABLET PO SCH (10:44)
[2018-01-03] MEDS: BENAZEPRIL HCL 20 MG TABLET PO SCH (10:44)
[2018-01-03] MEDS: FUROSEMIDE 40 MG TABLET PO SCH (10:45)
[2018-01-03] MEDS: PREDNISONE 20 MG TABLET PO SCH (10:45)
[2018-01-03] MEDS: DONEPEZIL HCL 5 MG TABLET PO SCH (10:45)
[2018-01-03] MEDS: MEMANTINE HCL 10 MG TABLET PO SCH (10:45)
[2018-01-03] MEDS: FLUTICASONE NASAL SPRAY 50 MCG/SPRY 120 SPRAY/16 GM NASL SCH (10:46)
[2018-01-03] MEDS: CHOLECALCIFEROL (D3) 1,000 UNIT TABLET PO SCH (10:46)
[2018-01-03] MEDS: RISPERIDONE 0.25 MG TABLET PO SCH (10:47)
== END 2018-01-03 15:03 | DRG 189 ==
LOC: ER 17:18 → EH 20:56 → 3N 12-30 14:46 → OBSVTOIN 12-30 15:28
PROVIDERS: ADMIT Internal Medicine; ATTEND Internal Medicine
PROC: 5A09557 Assistance with Respiratory Ventilation, Greater than 96 Consecutive Hours, Continuous Positive Airway Pressure (ICD-10-PCS; principal; 2017-12-29)
DX: J96.22 Acute and chronic respiratory failure with hypercapnia (principal); J96.21 Acute and chronic respiratory failure with hypoxia; D86.0 Sarcoidosis of lung; E78.5 Hyperlipidemia, unspecified; I10 Essential (primary) hypertension; E03.9 Hypothyroidism, unspecified; Z66 Do not resuscitate; G30.9 Alzheimer's disease, unspecified; F02.80 Dementia in other diseases classified elsewhere, unspecified severity, without behavioral disturbance, psychotic disturbance, mood disturbance, and anxiety; Z90.710 Acquired absence of both cervix and uterus
CPT/HCPCS: 36415; 36600; 71046; 71250; 80048; 80053; 82803; 83605; 83880; 84484; 85025; 85027; 85652; 87040; 87804; 93005; 93010; 94640; 94660; 94667; 94799; 96365; 96367; 96372; 96375; 96376; 99291; G0378; J0456; J1644; J1956; J2405; J2920; J2930; J3475; J3490; J7030; J7060; J7512; J7620

== ENCOUNTER 2018-01-25 14:52 | Inpatient (IN) | payer MEDICARE, MEDICAID ==
[2018-01-25] MEDS ORDERED: SUCCINYLCHOLINE CHLORIDE INJ 200 MG/10 ML VIAL ONE (15:37)
--- NOTE | 2018-01-25 15:45 | ER Document Report ---
ED Respiratory Problem - General Stated Complaint: COUGH Time Seen by Provider: 01/25/18 15:41 Mode of Arrival: Medic Information source: Relative, Transfer Record, Emergency Med Personnel TRAVEL OUTSIDE OF THE [place] IN LAST 30 DAYS: No - HPI Patient complains to provider of: Cough Onset: This morning - HAD SEVERAL PAROXYSMS THIS AFTERNOON, STAFF @ [facility] BECAME CONCERNED. Duration: Intermittent episodes Initiating Event: No: Aspiration/Choking, Out of meds Context: Other - SARCOIDOSIS Cough: Nonproductive Associated symptoms: None. denies: Chills, Fever Similar symptoms previously: Yes - W/ PNEUMONIA Recently seen / treated by doctor: No - Related Data Allergies/Adverse Reactions: No Known Allergies Allergy (Verified 12/01/17 23:53) Past Medical History - General Information source: Relative, [facility], [facility] Records Cannot obtain history due to: Dementia - Social History Smoking Status: Unknown if Ever Smoked Frequency of alcohol use: None Drug Abuse: None Lives with: Other - [facility] Family History: Reviewed & Not Pertinent Patient has suicidal ideation: No Patient has homicidal ideation: No - Past Medical History Cardiac Medical History: Reports: Hx Hypercholesterolemia, Hx Hypertension Denies: Hx Coronary Artery Disease Pulmonary Medical History: Reports: Hx Asthma, Hx COPD, Other - SARCOIDOSIS Endocrine Medical History: Reports: Hx Hypothyroidism Renal/ Medical History: Denies: Hx Peritoneal Dialysis Malignancy Medical History: Reports: None GI Medical History: Reports: None Musculoskeltal Medical History: Reports None Psychiatric Medical History: Reports: Hx Dementia Past Surgical History: Reports: Hx Hysterectomy, Hx Orthopedic Surgery - low back fusion - Immunizations Hx Diphtheria, Pertussis, Tetanus Vaccination: No Hx Pneumococcal Vaccination: 08/10/13 Review of Systems - Review of Systems -: Yes ROS unobtainable due to patient's medical condition - LIMITED R.O.S. AVAILABLE FROM PATIENT'S DAUGHTER (SEE HPI AND PMH) Physical Exam - Vital signs Vitals: Pulse Ox 96 01/25/18 17:48 Interpretation: Hypertensive, Tachycardic. No: Hypoxic - SAT 97% R.A. PER EMS, Tachypneic, Febrile - General General appearance: Lethargic In distress: None - HEENT Head: Normocephalic Eyes: Normal Conjunctiva: Normal Pharynx: Normal Neck: Other - CHRONIC KYPHOSIS - Respiratory Respiratory status: No respiratory distress. No: Labored, Pursed lip breathing , Retractions Breath sounds: Rhonchi - COARSE, UPPER AIRWAY. No: Rales, Wheezing - Cardiovascular Rhythm: Regular Heart sounds: Normal auscultation Murmur: No - Abdominal Inspection: Obese - Back Back: Normal - Extremities General upper extremity: Normal inspection General lower extremity: Edema - 2+, BILAT. - Neurological Neuro grossly intact: No - DEMENTIA, CHRONIC - Skin Skin Temperature: Warm Skin Moisture: Dry Skin Color: Normal Skin Turgor: Elastic Skin irregularity: other - SOME VENOUS STASIS DERMATITIS LOWER LEGS Course - Vital Signs Vital signs: Temp Pulse Resp BP Pulse Ox 96 01/25/18 17:48 - Laboratory Result Diagrams: 01/25/18 15:20 01/25/18 15:20 Laboratory results interpreted by me: 01/25/18 01/25/18 15:20 15:20 RDW 14.5 H Lymphocytes % 5.9 L Monocytes % 15.1 H Absolute Lymphocytes 0.2 L Carbon Dioxide 33 H - Diagnostic Test Radiology reviewed: Image reviewed, Reports reviewed - EKG Interpretation by Me EKG shows normal: Sinus rhythm, [place], Intervals, ST-T Waves. abnormal: QRS Complexes - EARLY TRANSITION Rate: Tachycardia - Consults DR. JEREZ Time consulted: 17:40 Reason for consultation: 01/25/18 18:05 AGREES WITH ADMISSION - ICU Consulted provider: will come to ER Procedures - Intubation Orotracheal Time of Intubation: 17:05 Airway evaluation: Other - CHRONIC CERVICAL KYPHOSIS Mallampati Classification: Class 4 Medications: Succinylcholine, Ketamine, Diprivan Intubation method: Orotracheal Blade type: Vita Blade size: 3 Equipment used: Glidescope ETT size: 7.5 ETT secured at: Lips ETT secured at (cm): 23 Breath Sounds after Intubation: Right greater than left End tidal CO2 confirmed: Yes Tidal volume: 450 FiO2: 60 Respirations: 22 Pressure support: 10 PEEP: 5 Post Intubation Xray: Yes Intubation Complications: No complications Critical Care Note - Critical Care Note Total time excluding time spent on procedures (mins): 60 Comments: ACUTE RESPIRATORY FAILURE, HYPOXEMIA, AGGRESSIVE INTERVENTIONS NECESSARY. Discharge - Discharge Clinical Impression: Acute respiratory failure Qualifiers: Respiratory failure complication: hypoxia Qualified Code(s): J96.01 - Acute respiratory failure with hypoxia Condition: Serious Disposition: ADMITTED INPATIENT Admitting Provider: Hospitalist Unit Admitted: ICU
--- NOTE | 2018-01-25 15:58 | RADIOLOGY REPORT (SQ) ---
EXAM DESCRIPTION: CHEST PA/LAT COMPLETED DATE/TIME: 01/25/2018 3:43 pm REASON FOR STUDY: cough COMPARISON: Chest x-ray 12/29/2017, CT chest 12/31/2017 EXAM PARAMETERS: NUMBER OF VIEWS: two views TECHNIQUE: Digital Frontal and Lateral radiographic views of the chest acquired. RADIATION DOSE: NA LIMITATIONS: none FINDINGS: LUNGS AND PLEURA: Ground-glass opacity at the right lower lobe. No sizable pleural effusi on or pneumothorax. MEDIASTINUM AND HILAR STRUCTURES: Right perihilar airspace opacity extending to the lateral pleura. Calcified lymph nodes at the mediastinum. HEART AND VASCULAR STRUCTURES: Heart normal size. No evidence for failure. BONES: There is osteopenia. Degenerative changes are seen within the spine. HARDWARE: None in the chest. IMPRESSION: 1. Right perihilar airspace opacity extending to the pleura, probably corresponding to spiculated density described on prior CT chest. PET/CT can be obtained to exclude neoplasm. 2. Ground-glass opacity at the right lower lobe, may represent atelectasis or pneumonia. TECHNICAL DOCUMENTATION: JOB ID: [id number] 2010 [employer]- All Rights Reserved Reading location - IP/workstation name: [email or web address]
[2018-01-25 16:01] LABS: ABSOLUTE EOSINOPHILS # (AUTO) 0.1 10^3/uL (0.0-0.6); ABSOLUTE LYMPHOCYTES (AUTO) 0.2 10^3/uL (0.5-4.7); ABSOLUTE MONOCYTES (AUTO) 0.6 10^3/uL (0.1-1.4); EOSINOPHILS % (AUTO) 2.3 % (0-6); HEMATOCRIT 39.3 % (36.0-47.0); HEMOGLOBIN 13.1 g/dL (12.0-15.5); LYMPHOCYTES % (AUTO) 5.9 % (13-45); MEAN CORPUSCULAR HGB CONC 33.3 g/dL (32.0-36.0); MEAN CORPUSCULAR VOLUME 87 fl (80-97); MONOCYTES % (AUTO) 15.1 % (3-13); PLATELET COUNT 159 10^3/uL (150-450); RED CELL DISTRIBUTION WIDTH 14.5 % (11.5-14.0); SEGMENTED NEUTROPHILS % (AUTO) 75.7 % (42-78); TOTAL CELLS COUNTED % (AUTO) 100 %
[2018-01-25 16:30] LABS: ALANINE AMINOTRANSFERASE 28 U/L (9-52); ALBUMIN 4.1 g/dL (3.5-5.0); ALKALINE PHOSPHATASE 118 U/L (38-126); ANION GAP 9 (5-19); ASPARTATE AMINO TRANSFERASE 23 U/L (14-36); BILIRUBIN,DIRECT 0.3 mg/dL (0.0-0.4); BILIRUBIN,TOTAL 0.4 mg/dL (0.2-1.3); BLOOD UREA NITROGEN 17 mg/dL (7-20); CALCIUM 10.1 mg/dL (8.4-10.2); CARBON DIOXIDE 33 mmol/L (22-30); CHLORIDE 99 mmol/L (98-107); CREATINE KINASE 44 U/L (30-135); GLUCOSE 107 mg/dL (75-110); POTASSIUM 3.8 mmol/L (3.6-5.0); SODIUM 141.2 mmol/L (137-145)
[2018-01-25 16:39] LABS: CREATINE KINASE MB 1.03 ng/mL (<4.55)
[2018-01-25 16:41] LABS: TROPONIN I < 0.012 ng/mL
[2018-01-25] MEDS ORDERED: ALBUTEROL SULFATE 0.083% NEB 2.5 MG/3 ML AMPUL NEB ONE ×2 (17:07→18:54)
[2018-01-25] MEDS ORDERED: ETOMIDATE INJ/PF 20 MG/10 ML SDV IV ONE (17:17)
[2018-01-25] MEDS ORDERED: KETAMINE HCL INJ 500 MG/10 ML VIAL ONE (17:24)
[2018-01-25] MEDS ORDERED: PROPOFOL 100 ML IV ONE (17:26)
[2018-01-25] MEDS ORDERED: SUCCINYLCHOLINE CHLORIDE INJ 200 MG/10 ML VIAL IV ONE (17:31)
[2018-01-25] MEDS ORDERED: KETAMINE HCL INJ 500 MG/10 ML VIAL IV ONE (17:31)
[2018-01-25] MEDS ORDERED: PROPOFOL 100 ML IV PRN (17:32)
[2018-01-25] MEDS ORDERED: ONDANSETRON HCL INJ/PF 4 MG/2 ML SDV IV PRN (17:50)
[2018-01-25] MEDS ORDERED: ACETAMINOPHEN 325 MG TABLET PO PRN (17:50)
[2018-01-25] MEDS ORDERED: NORMAL SALINE 1000 ML 1,000 ML IV PRN ×2 (17:50→18:24)
[2018-01-25] MEDS ORDERED: OXYCODONE-ACETAMINOPHEN 5-325 MG TABLET PO PRN (17:50)
[2018-01-25] MEDS ORDERED: LEVOFLOXACIN 750 MG/D5W RTU 750 MG/150 ML RTUPB IV ONE (17:54)
[2018-01-25] MEDS ORDERED: LEVOFLOXACIN 750 MG/D5W RTU 750 MG/150 ML RTUPB IV SCH (18:00)
[2018-01-25] MEDS ORDERED: EPINEPHRINE INJ 1 MG/10 ML DISP.SYRIN ONE (18:10)
[2018-01-25] MEDS ORDERED: NOREPINEPHRINE BITARTRATE INJ/PF 4 MG/4 ML SDV IV ONE ×2 (18:10→22:24)
[2018-01-25] MEDS ORDERED: METHYLPREDNISOLONE INJ 40 MG/1 ML SDV IV ONE (18:30)
[2018-01-25] MEDS ORDERED: MIDAZOLAM HCL 50 MG/100 ML RTUINJ IV ONE (18:30)
--- NOTE | 2018-01-25 18:54 | RADIOLOGY REPORT (SQ) ---
EXAM DESCRIPTION: CHEST SINGLE VIEW COMPLETED DATE/TIME: 01/25/2018 5:46 pm REASON FOR STUDY: ET/OG TUBE PLACEMENT COMPARISON: Chest x-ray 01/25/2018 at 15:[address] chest 12/31/2017. EXAM PARAMETERS: NUMBER OF VIEWS: One view TECHNIQUE: Single frontal radiograph of the chest on 01/25/2018 at 17:38 hours. RADIATION DOSE: N/A LIMITATIONS: The patient is rotated. FINDINGS: TEMPORARY SUPPORT DEVICES:ETT in expected location. NG tube courses below the left aleksandar-d iaphragm in to the stomach. LUNGS AND PLEURA: Redemonstration of ground-glass opacity at the right lower lobe. No pneumothorax o r sizable pleural effusion. MEDIASTINUM AND HILAR STRUCTURES: Right perihilar airspace opacity extending to the pleura. HEART AND VASCULAR STRUCTURES: The heart is not enlarged. No overt vascular congestion. BONES: Degenerative changes in the spine. IMPRESSION: Support devices in expected locations. No significant interval change in the appearance of the chest. TECHNICAL DOCUMENTATION: JOB ID: [id number] 2010 [employer]- All Rights Reserved Reading location - IP/workstation name: [email or web address]
[2018-01-25] MEDS: MIDAZOLAM HCL 50 MG/100 ML RTUINJ IV PRN ×2 (18:59→22:36)
--- NOTE | 2018-01-25 19:01 | PDOC H&P ---
History of Present Illness Admission Date/PCP: January 25, 2018 Patient complains of: Unable to obtain since sedated History of Present Illness: HALEY LESTER is a 72 year old female was transferred to the ED from the [facility] facility. Patient had been experiencing cough. Patient was initially seen in the urgent care area but since cough got progressively worse she was moved to the main ER. While in the main ER patient respiratory status worsened and the decision was made by the physician to intubate. After intubation blood pressure decreased. Propofol had been started and was stopped. Due to patient' s medical condition hospitalist service was contacted and prompted to admit. Patient has been diagnosed with Alzheimer's dementia in her early 60s. According to family she was recently admitted to this facility when had an episode which was similar to this current one. Patient does have a history of sarcoidosis for 20 years. There is also a history of hypothyroidism and high blood pressure. Family is at bedside and expressed that patient is a full code. History taking limited due to overall medical condition and not in a lot of information in patient's chart Past Medical History Cardiac Medical History: Reports: Hyperlipidema, Hypertension Denies: Coronary Artery Disease Pulmonary Medical History: Reports: Asthma, Chronic Obstructive Pulmonary Disease (COPD) EENT Medical History: Reports: None Neurological Medical History: Reports: None Endocrine Medical History: Reports: None, Hypothyroidism Renal/ Medical History: Reports: None Malignancy Medical History: Reports: None GI Medical History: Reports: None Musculoskeltal Medical History: Reports: None Skin Medical History: Reports: None Psychiatric Medical History: Reports: Dementia Traumatic Medical History: Reports: None Hematology: Reports: None Infectious Medical History: Reports: None Past Surgical History Past Surgical History: Reports: Hysterectomy, Orthopedic Surgery - low back fusion Social History Information Source: Relative Smoking Status: Never Smoker Frequency of Alcohol Use: None Hx Recreational Drug Use: No Drugs: None Hx Prescription Drug Abuse: No - Advance Directive Resuscitation Status: Full Code Family History Family History: Reviewed & Not Pertinent Parental Family History Reviewed: Yes Children Family History Reviewed: Yes Sibling(s) Family History Reviewed.: Yes Medication/Allergy Home Medications: Acetaminophen [Tylenol 325 mg Tablet] 325 mg PO Q6HP PRN 12/30/17 Benazepril HCl [Lotensin 20 mg Tablet] 20 mg PO Q12 12/30/17 Betamethasone Dipropionate [Diprosone Cream] 1 applic TOP BID 12/30/17 Calcium Carbonate [Calcium] 600 mg PO DAILY 12/30/17 Cholecalciferol (Vitamin D3) [Vitamin D3] 5,000 unit PO DAILY 12/30/17 Cold Cream/Zinc Oxide/Star/Art [Dermacloud Ointment] 1 applic TOP DAILY Donepezil HCl [Aricept] 10 mg PO DAILY 12/30/17 Ferrous Sulfate [Feosol 325 mg Tablet] 325 mg PO DAILY 12/30/17 Furosemide [Lasix 40 mg Tablet] 40 mg PO DAILY 12/30/17 Levothyroxine Sodium [Synthroid] 125 mcg PO Q6AM 12/30/17 Magnesium Hydroxide [Milk of Magnesia 30 ml Udcup] 30 ml PO DAILYP PRN 12/30/17 Memantine HCl [Namenda 10 mg Tablet] 10 mg PO BID 12/30/17 Mineral Oil/Petrolatum,White [Minerin Creme] 1 applic TOP BID 12/30/17 Potassium Chloride [K-Tab ER] 20 meq PO DAILY 12/30/17 Risperidone [Risperdal] 0.5 mg PO Q12 12/30/17 Verapamil HCl [Verapamil ER Pm] 300 mg PO QHS 12/30/17 Docusate Sodium [Colace 100 mg Capsule] 100 mg PO DAILY capsule 01/03/18 Fluticasone Propionate [Flonase Nasal [place] 50 Mcg/[place] 16 gm] 2 spray NASL Q12 spray.pump 01/03/18 Guaifenesin [Robitussin Syrup 200 mg/10 ml Ud Cup] 200 mg PO Q4HP PRN udc 01/03 Ipratropium/Albuterol Sulfate [Duoneb 3 ml Ampul] 3 ml NEB [id number] PRN vial.neb 01/03/18 Ipratropium/Albuterol Sulfate [Duoneb 3 ml Ampul] 3 ml NEB RTQ6 vial.neb Levothyroxine Sodium [Synthroid 0.1 mg Tablet] 0.1 mg PO Q6AM tablet 01/03/18 Methylprednisolone [Medrol Dosepack (4 mg/Tab) 21 Tab/Dosepak] 4 mg PO ASDIR PRN #21 tab.ds.pk 01/03/18 Mirtazapine [Remeron] 30 mg PO QHS #14 tablet 01/03/18 Thiamine HCl [Thiamine 100 mg Tablet] 100 mg PO DAILY tablet 01/03/18 Allergies/Adverse Reactions: No Known Allergies Allergy (Verified 12/01/17 23:53) Physical Exam Vital Signs: Temp Pulse Resp BP Pulse Ox 96 01/25/18 17:48 General appearance: PRESENT: other - Sedated Head exam: PRESENT: atraumatic, normocephalic Eye exam: PRESENT: conjunctiva pink, EOMI, PERRLA Ear exam: PRESENT: normal external ear exam Mouth exam: PRESENT: neck supple Neck exam: ABSENT: full ROM, JVD, lymphadenopathy, tenderness, thyromegaly Respiratory exam: PRESENT: decreased breath sounds, rhonchi Cardiovascular exam: PRESENT: RRR. ABSENT: diastolic murmur, systolic murmur Vascular exam: PRESENT: normal capillary refill GI/Abdominal exam: PRESENT: normal bowel sounds, soft. ABSENT: hernia - 3+ pitting edema bilaterally Extremities exam: ABSENT: full ROM, tenderness Musculoskeletal exam: ABSENT: ambulatory Neurological exam: PRESENT: other - Sedated Skin exam: PRESENT: intact, normal color Results Laboratory Results: 01/25/18 15:20 01/25/18 15:20 01/25/18 01/25/18 15:20 15:20 WBC 4.0 RBC 4.50 Hgb 13.1 Hct 39.3 MCV 87 MCH 29.0 MCHC 33.3 RDW 14.5 H Plt Count 159 Seg Neutrophils % 75.7 Lymphocytes % 5.9 L Monocytes % 15.1 H Eosinophils % 2.3 Basophils % 1.0 Absolute Neutrophils 3.0 Absolute Lymphocytes 0.2 L Absolute Monocytes 0.6 Absolute Eosinophils 0.1 Absolute Basophils 0.0 Sodium 141.2 Potassium 3.8 Chloride 99 Carbon Dioxide 33 H Anion Gap 9 BUN 17 Creatinine 0.87 Est GFR ( Amer) > 60 Est GFR (Non-Af Amer) > 60 Glucose 107 Calcium 10.1 Total Bilirubin 0.4 AST 23 ALT 28 Alkaline Phosphatase 118 Total Protein 7.0 Albumin 4.1 01/25/18 01/25/18 15:20 15:20 Creatine Kinase 44 CK-MB (CK-2) 1.03 Troponin I < 0.012 Assessment & Plan - Diagnosis (1) Acute and chronic respiratory failure Qualifiers: Respiratory failure complication: hypoxia and hypercapnia Qualified Code(s) : J96.21 - Acute and chronic respiratory failure with hypoxia; J96.22 - Acute and chronic respiratory failure with hypercapnia; J96.22 - Acute and chronic respiratory failure with hypercapnia; J96.22 - Acute and chronic respiratory failure with hypercapnia Is this a current diagnosis for this admission?: Yes Plan: Will continue with ventilatory support. Will consult Dr. Ragland for assistance. Will also consult surgery for central line. Concern about aspiration and will place patient on Zosyn IV (2) Sarcoidosis Is this a current diagnosis for this admission?: Yes Plan: Will place patient on IV steroids (3) HTN (hypertension) Qualifiers: Hypertension type: essential hypertension Qualified Code(s): I10 - Essential (primary) hypertension Is this a current diagnosis for this admission?: Yes Plan: Will hold antihypertensive medications since at the present time hypotensive. (4) Dementia Qualifiers: Dementia type: Alzheimer's disease Dementia behavioral disturbance: with behavioral disturbance Is this a current diagnosis for this admission?: Yes Plan: Will continue with outpatient regimen for dementia (5) Hypothyroidism Qualifiers: Hypothyroidism type: acquired Qualified Code(s): E03.9 - Hypothyroidism, unspecified Is this a current diagnosis for this admission?: Yes Plan: Will continue with outpatient regimen (6) Hypotension Qualifiers: Hypotension type: other hypotension type Qualified Code(s): I95.89 - Other hypotension Is this a current diagnosis for this admission?: Yes Plan: Likely relates to the agents used for intubation. Will support patient with Levophed and fluids. Lactic acid is pending at the time of dictation. - Time Time Spent: 50 to 70 Minutes Medications reviewed and adjusted accordingly: Yes Anticipated discharge: SNF Within: within 72 hours - Inpatient Certification Based on my medical assessment, after consideration of the patient's comorbidities, presenting symptoms, or acuity I expect that the services needed warrant INPATIENT care.: Yes I certify that my determination is in accordance with my understanding of Medicare's requirements for reasonable and necessary INPATIENT services [42 CFR 412.3e].: Yes Medical Necessity: Need Close Monitoring Due to Risk of Patient Decompensation, Need for Nebulizer Therapy and Monitoring of Response, Need for IV Antibiotics
[2018-01-25] MEDS: DEXTROSE 5%-WATER 250 ML with NOREPINEPHRINE BITARTRATE 4 MG IV PRN ×4 (19:08→22:32)
[2018-01-25 19:52] LABS: ARTERIAL BLOOD BASE EXCESS -2.3 mmol/L; ARTERIAL BLOOD H2CO3 1.03 mmol/L (1.05-1.35); ARTERIAL BLOOD HCO3 21.6 mmol/L (20-26); ARTERIAL BLOOD O2 SATURATION 99.3 % (94-98); ARTERIAL BLOOD PCO2 34.2 mmHg (35-45); ARTERIAL BLOOD PH 7.42 (7.35-7.45); ARTERIAL BLOOD PO2 191.2 mmHg (80-100); ARTERIAL BLOOD TOTAL CO2 22.6 mmol/L (21-25)
[2018-01-25 19:53] LABS: ARTERIAL BLOOD FIO2 60%
[2018-01-25] MEDS ORDERED: PIPERACILLIN/TAZOBACTAM 3.375 GM VIAL IV PRN (20:07)
[2018-01-25] MEDS ORDERED: PIPERACILLIN SODIUM/TAZOBACTAM 3.375 GM in NORMAL SALINE 100 ML IV ONE (20:15)
--- NOTE | 2018-01-25 20:20 | EKG REPORT ---
SEVERITY:- ABNORMAL ECG - ATRIAL FIBRILLATION, V-RATE 97-110 PROBABLE POSTERIOR INFARCT : Confirmed by: Adán Dukes MD 25-Jan-2018 20:19:40
[2018-01-25 20:21] LABS: BILIRUBIN,URINE NEGATIVE (NEGATIVE); COLOR,URINE YELLOW; GLUCOSE, URINE 50 mg/dL (NEGATIVE); KETONES,URINE NEGATIVE (NEGATIVE); LEUKOCYTE ESTERASE,URINE NEGATIVE (NEGATIVE); NITRITE,URINE NEGATIVE (NEGATIVE); PROTEIN,URINE 100 mg/dL (NEGATIVE); URINE SPECIFIC GRAVITY 1.011; UROBILINOGEN,URINE NEGATIVE mg/dL (<2.0)
[2018-01-25 20:22] LABS: APPEARANCE,URINE CLEAR
--- NOTE | 2018-01-25 20:32 | RADIOLOGY REPORT (SQ) ---
EXAM DESCRIPTION: CTA CHEST COMPLETED DATE/TIME: 01/25/2018 8:12 pm REASON FOR STUDY: acute respiratory failure COMPARISON: 12/31/2017 TECHNIQUE: CT scan of the chest performed using helical scanning technique with dynamic intravenous contrast injection. Images reviewed with lung, soft tissue and bone windows. Reconstructed coronal and sagittal MPR images reviewed. Additional 3 dimensional post-processing performed to develop Maximal Intensity Projection images (PR P). All images stored on PACS. All CT scanners at this facility use dose modulation, iterative reconstruction, and/or weight based d osing when appropriate to reduce radiation dose to as low as reasonably achievable (ALARA). [facility]: Dose Right [facility]: CareDose [facility]: Dose Right [facility]: Teradose 4D [facility]: e[employer] CONTRAST TYPE AND DOSE: contrast/concentration: Isovue 370.00 mg/ml; Total Contrast Delivered: 90.0 ml; Total Saline Delivered: 75.0 ml Contrast bolus optimized for the pulmonary arteries. Not diagnostic for the aorta. RENAL FUNCTION: BUN 17 creatinine 0.9 RADIATION DOSE: CT Rad equipment meets quality standard of care and radiation dose reduction techniq ues were employed. CTDIvol: 16.5 - 18.3 mGy. DLP: 710 mGy-cm. . LIMITATIONS: None. FINDINGS: LUNGS AND PLEURA: Bilateral airspace disease with scattered pulmonary nodules not signific antly changed in size and number. More extensive soft tissue density along the right major fissure e xtending into the right hilum. No significant pleural fluid accumulation. AORTA AND GREAT VESSELS: No aneurysm. Contrast bolus not optimized for the aorta. HEART: No pericardial effusion. PULMONARY ARTERIES: No emboli visualized in the main pulmonary arteries or the segmental branches. HILAR AND MEDIASTINAL STRUCTURES: Calcified mediastinal and hilar nodes. HARDWARE: None in the chest. UPPER ABDOMEN: Nasogastric tube in the stomach. THYROID AND OTHER SOFT TISSUES: No masses. No adenopathy. BONES: No acute findings. 3D MIPS: Confirm above findings. OTHER: Endotracheal tube tip above the veronique. IMPRESSION: 1. No PE. 2. Chronic airspace disease in both lungs, right greater than left. Stable pulmonary nodules. There is increasing density in the right upper lobe probably representing small amount of loculated fluid. No empyema. COMMENT: Quality ID # [id number]: Final reports with documentation of one or more dose reduction techniques (e.g., Automated exposure control, adjustment of the mA and/or kV according to patient size, use of iterative reconstruction technique) TECHNICAL DOCUMENTATION: JOB ID: [id number] [employer]- All Rights Reserved Reading location - IP/workstation name: [email or web address]
[2018-01-25] MEDS: IPRATROPIUM/ALBUTEROL 0.5-2.5 MG/3 ML AMPUL NEB SCH (21:05)
[2018-01-25] MEDS ORDERED: ATORVASTATIN CALCIUM 80 MG TABLET PO ONE (22:31)
[2018-01-25] MEDS ORDERED: ASPIRIN 81 MG TABLET, CHEWABLE NG ONE (22:45)
--- NOTE | 2018-01-26 00:37 | PDOC CONSULTATION ---
Consultation Consult Date: 01/25/18 Consult reason:: need IV access History of Present Illness Admission Date/PCP: 01/25/18 19:18 History of Present Illness: HALEY LESTER is a 72 year old female was transferred to the ED from the [facility] facility. She has developed respiratory distress, required intubation, and I have donte consulted for placement of central venous line for fluids and medication. Past Medical History Cardiac Medical History: Reports: Hyperlipidema, Hypertension Denies: Coronary Artery Disease Pulmonary Medical History: Reports: Asthma, Chronic Obstructive Pulmonary Disease (COPD), Other - SARCOIDOSIS EENT Medical History: Reports: None Neurological Medical History: Reports: None Endocrine Medical History: Reports: None, Hypothyroidism Renal/ Medical History: Reports: None Malignancy Medical History: Reports: None GI Medical History: Reports: None Musculoskeltal Medical History: Reports: None Skin Medical History: Reports: None Psychiatric Medical History: Reports: Dementia Traumatic Medical History: Reports: None Hematology: Reports: None Infectious Medical History: Reports: None Past Surgical History Past Surgical History: Reports: Hysterectomy, Orthopedic Surgery - low back fusion Social History Lives with: Other - [facility] Smoking Status: Unknown if Ever Smoked Frequency of Alcohol Use: None Hx Recreational Drug Use: No Drugs: None Hx Prescription Drug Abuse: No - Advance Directive Resuscitation Status: Full Code Family History Family History: Reviewed & Not Pertinent Parental Family History Reviewed: No Children Family History Reviewed: No Sibling(s) Family History Reviewed.: No Medication/Allergy Home Medications: Acetaminophen [Tylenol 325 mg Tablet] 325 mg PO Q6HP PRN 12/30/17 Benazepril HCl [Lotensin 20 mg Tablet] 20 mg PO Q12 12/30/17 Betamethasone Dipropionate [Diprosone Cream] 1 applic TOP BID 12/30/17 Calcium Carbonate [Calcium] 600 mg PO DAILY 12/30/17 Cholecalciferol (Vitamin D3) [Vitamin D3] 5,000 unit PO DAILY 12/30/17 Cold Cream/Zinc Oxide/Star/Art [Dermacloud Ointment] 1 applic TOP DAILY Donepezil HCl [Aricept] 10 mg PO DAILY 12/30/17 Ferrous Sulfate [Feosol 325 mg Tablet] 325 mg PO DAILY 12/30/17 Furosemide [Lasix 40 mg Tablet] 40 mg PO DAILY 12/30/17 Levothyroxine Sodium [Synthroid] 125 mcg PO Q6AM 12/30/17 Magnesium Hydroxide [Milk of Magnesia 30 ml Udcup] 30 ml PO DAILYP PRN 12/30/17 Memantine HCl [Namenda 10 mg Tablet] 10 mg PO BID 12/30/17 Mineral Oil/Petrolatum,White [Minerin Creme] 1 applic TOP BID 12/30/17 Potassium Chloride [K-Tab ER] 20 meq PO DAILY 12/30/17 Risperidone [Risperdal] 0.5 mg PO Q12 12/30/17 Verapamil HCl [Verapamil ER Pm] 300 mg PO QHS 12/30/17 Docusate Sodium [Colace 100 mg Capsule] 100 mg PO DAILY capsule 01/03/18 Fluticasone Propionate [Flonase Nasal [place] 50 Mcg/[place] 16 gm] 2 spray NASL Q12 spray.pump 01/03/18 Guaifenesin [Robitussin Syrup 200 mg/10 ml Ud Cup] 200 mg PO Q4HP PRN udc 01/03 Ipratropium/Albuterol Sulfate [Duoneb 3 ml Ampul] 3 ml NEB [id number] PRN vial.neb 01/03/18 Ipratropium/Albuterol Sulfate [Duoneb 3 ml Ampul] 3 ml NEB RTQ6 vial.neb Levothyroxine Sodium [Synthroid 0.1 mg Tablet] 0.1 mg PO Q6AM tablet 01/03/18 Methylprednisolone [Medrol Dosepack (4 mg/Tab) 21 Tab/Dosepak] 4 mg PO ASDIR PRN #21 tab.ds.pk 01/03/18 Mirtazapine [Remeron] 30 mg PO QHS #14 tablet 01/03/18 Thiamine HCl [Thiamine 100 mg Tablet] 100 mg PO DAILY tablet 01/03/18 Allergies/Adverse Reactions: No Known Allergies Allergy (Verified 12/01/17 23:53) Physical Exam Vital Signs: Temp Pulse Resp BP Pulse Ox 100.2 F 84 14 155/76 H 98 01/25/18 23:44 01/25/18 23:44 01/25/18 23:44 01/25/18 23:44 01/25/18 23:44 Intake & Output 03/17/18 03/18/18 03/19/18 06:59 06:59 06:59 Output Total 230 Balance -230 Weight 76.4 kg General appearance: PRESENT: other - sedatewd Head exam: PRESENT: atraumatic Respiratory exam: PRESENT: rhonchi Cardiovascular exam: PRESENT: irregular rhythm GI/Abdominal exam: PRESENT: soft Neurological exam: PRESENT: other - sedated Results Laboratory Results: 01/25/18 01/25/18 01/25/18 19:40 19:43 21:31 Carbonic Acid 1.03 L HCO3/H2CO3 Ratio 20:1 ABG pH 7.42 ABG pCO2 34.2 L ABG pO2 191.2 H ABG HCO3 21.6 ABG O2 Saturation 99.3 H ABG Base Excess -2.3 FiO2 60% Lactic Acid 2.3 H Urine Color YELLOW Urine Appearance CLEAR Urine pH 6.0 Ur Specific [place] 1.011 Urine Protein 100 H Urine Glucose (UA) 50 H Urine Ketones NEGATIVE Urine Blood SMALL H Urine Nitrite NEGATIVE Ur Leukocyte Esterase NEGATIVE Urine RBC (Auto) 3 01/25/18 21:27 Troponin I 0.536 Impressions: Chest/Abdomen CTA 01/25/18 00:00 IMPRESSION: 1. No PE. 2. Chronic airspace disease in both lungs, right greater than left. Stable pulmonary nodules. There is increasing density in the right upper lobe probably representing small amount of loculated fluid. No empyema. Chest X-Ray 01/25/18 17:30 IMPRESSION: Support devices in expected locations. No significant interval change in the appearance of the chest. Assessment & Plan - Plan Summary Plan Summary: A/ Need off IV access for medications and fluids Consent obtained from P/ Placement of triple lumen venous catheter at bedside in the ICU C-Xray to confirm line placement
--- NOTE | 2018-01-26 00:39 | Operative Report ---
Nonrecallable Operative Report DATE OF SURGERY: 01/26/18 PREOPERATIVE DIAGNOSIS: need of venous acess for medicaitons and fluids POSTOPERATIVE DIAGNOSIS: same OPERATION: right subclavian vein central venous triple lumen catheter insertion SURGEON: BERE GARCIA ANESTHESIA: Local TISSUE REMOVED OR ALTERED: n/a COMPLICATIONS: none ESTIMATED BLOOD LOSS: negligible INTRAOPERATIVE FINDINGS: n/a; as above PROCEDURE: see dictation
[2018-01-26] MEDS: HEPARIN SOD (PORCINE) 5,000 UNIT/ML 1 ML SYRINGE SUBCUT SCH ×4 (00:44→21:22)
--- NOTE | 2018-01-26 01:26 | RADIOLOGY REPORT (SQ) ---
EXAM DESCRIPTION: CHEST SINGLE VIEW CLINICAL HISTORY: 72 years Female, post central line insertion COMPARISON: None. NUMBER OF VIEWS/TECHNIQUE: 1/AP LIMITATIONS: CR, same date, report only. FINDINGS: Moderate patchiness of the right midlung field. Moderate parenchymal lucency may indicate emphysema and/or bullous disease. Small right apical 1.0 cm nonspecific pleural thickening. Thickness Adequate appearing endotracheal tube. Right subclavian central line tip at the cavoatrial junction. Likely adequate enteric tube obscured distally. IMPRESSION: Right central line.
[2018-01-26] MEDS: METHYLPREDNISOLONE INJ 40 MG/1 ML SDV IV SCH ×3 (01:47→18:11)
[2018-01-26] MEDS: PIPERACILLIN SODIUM/TAZOBACTAM 3.375 GM in NORMAL SALINE 100 ML IV SCH ×4 (02:14→20:26)
[2018-01-26] MEDS: MIDAZOLAM HCL 50 MG/100 ML RTUINJ IV PRN ×3 (03:04→22:47)
--- NOTE | 2018-01-26 03:59 | OPERATIVE REPORT E ---
Operative Report NAME: HALEY LESTER : 1945 AGE: 72Y DATE OF SURGERY:01/25/2018 ROOM: 605 PREOPERATIVE DIAGNOSIS: In need of intravenous access for administration of drugs and fluids. POSTOPERATIVE DIAGNOSIS: In need of intravenous access for administration of drugs and fluids. PROCEDURE Placement of right subclavian vein triple-lumen venous catheter. SURGEON: BERE GARCIA M.D. DESIGN MAINTENANCE ENGINEER: None. ESTIMATED BLOOD LOSS: Negligible. COMPLICATIONS: None. ANESTHESIA: 5 mL of 0.5% of combination of 1% lidocaine with epinephrine. INDICATION AND FINDINGS: This is a 72-year-old female with Alzheimer disease, respiratory failure requiring intubation, who needs the insertion of a central venous line for administration of fluids and medications. The procedure, risks, and benefits explained to the . He understands all the above and decided to proceed. DESCRIPTION OF PROCEDURE: The procedure was done in the ICU at bedside. The patient was placed in supine Trendelenburg position. The right side of the neck and chest prepped in and draped in the usual fashion. The area below the mid portion of the right clavicle was infiltrated with Lidocaine. A 16-gauge needle was used to easily cannulate the right subclavian vein. A guidewire was inserted through the needle into the subclavian vein and superior vena cava. The needle was removed and a dilator with a knife were employed to enlarge the wire insertion point. A triple-lumen catheter was advanced up to 16 cm over the guidewire into the superior vena cava. Each port was aspirated and flushed with normal saline without difficulty. The catheter was then secured to the skin with silk sutures and sterile dressing applied. The patient tolerated the procedure well. A chest x-ray was obtained to confirm position of the line. DICTATING PHYSICIAN: BERE GARCIA M.D. [id number] PHY#: [id number] ID: [id number] JOB#: [id number] ACCT: [id number] cc:BERE GARCIA M.D. > [facility]
[2018-01-26] MEDS ORDERED: NORMAL SALINE 1000 ML 1,000 ML IV PRN (04:57)
--- NOTE | 2018-01-26 06:08 | EKG REPORT ---
SEVERITY:- ABNORMAL ECG - SINUS RHYTHM VENTRICULAR TRIGEMINY PROBABLE LEFT ATRIAL ABNORMALITY EARLY TRANSITION PRECORDIAL LEADS, CONSIDER OLD TRUE POST IL DIFFUSE NONSPECIFIC ST-T CHANGES ARE NEW : Confirmed by: Adán Dukes MD 26-Jan-2018 06:07:45
[2018-01-26] MEDS: NORMAL SALINE INJ/PF 0.9% 10 ML SDV IV PRN (06:16)
[2018-01-26 06:48] LABS: ABSOLUTE LYMPHOCYTES (AUTO) 0.4 10^3/uL (0.5-4.7); ABSOLUTE MONOCYTES (AUTO) 0.3 10^3/uL (0.1-1.4); BASOPHILS % (AUTO) 0.1 % (0-2); HEMATOCRIT 34.4 % (36.0-47.0); HEMOGLOBIN 11.5 g/dL (12.0-15.5); LYMPHOCYTES % (AUTO) 6.7 % (13-45); MEAN CORPUSCULAR HGB CONC 33.6 g/dL (32.0-36.0); MEAN CORPUSCULAR VOLUME 87 fl (80-97); MONOCYTES % (AUTO) 4.5 % (3-13); PLATELET COUNT 151 10^3/uL (150-450); RED BLOOD COUNT 3.97 10^6/uL (3.72-5.28); RED CELL DISTRIBUTION WIDTH 14.1 % (11.5-14.0); SEGMENTED NEUTROPHILS % (AUTO) 88.7 % (42-78); TOTAL CELLS COUNTED % (AUTO) 100 %; WHITE BLOOD COUNT 5.7 10^3/uL (4.0-10.5)
[2018-01-26 06:49] LABS: ARTERIAL BLOOD BASE EXCESS -2.7 mmol/L; ARTERIAL BLOOD H2CO3 0.85 mmol/L (1.05-1.35); ARTERIAL BLOOD HCO3 19.9 mmol/L (20-26); ARTERIAL BLOOD O2 SATURATION 98.8 % (94-98); ARTERIAL BLOOD PCO2 28.1 mmHg (35-45); ARTERIAL BLOOD PH 7.47 (7.35-7.45); ARTERIAL BLOOD PO2 132.3 mmHg (80-100); ARTERIAL BLOOD TOTAL CO2 20.7 mmol/L (21-25)
[2018-01-26 06:54] LABS: ARTERIAL BLOOD FIO2 40%
[2018-01-26 07:01] LABS: ANION GAP 7 (5-19); BLOOD UREA NITROGEN 14 mg/dL (7-20); CALCIUM 8.2 mg/dL (8.4-10.2); CARBON DIOXIDE 24 mmol/L (22-30); CHLORIDE 109 mmol/L (98-107); CREATINE KINASE 67 U/L (30-135); GLUCOSE 169 mg/dL (75-110); PHOSPHORUS 2.6 mg/dL (2.5-4.5); POTASSIUM 3.4 mmol/L (3.6-5.0); SODIUM 140.4 mmol/L (137-145)
[2018-01-26 07:13] LABS: CREATINE KINASE MB 3.75 ng/mL (<4.55); TROPONIN I 1.02 ng/mL
[2018-01-26] MEDS: IPRATROPIUM/ALBUTEROL 0.5-2.5 MG/3 ML AMPUL NEB SCH (07:58)
[2018-01-26] MEDS: POTASSI CL 20 MEQ/50 ML RIDER 20 MEQ/50 ML RTUPB IV SCH ×2 (09:00→10:07)
[2018-01-26] MEDS: ASPIRIN 325 MG TABLET NG SCH (09:02)
[2018-01-26] MEDS ORDERED: ASPIRIN 81 MG TABLET, CHEWABLE NG SCH (10:00)
--- NOTE | 2018-01-26 10:04 | RADIOLOGY REPORT (SQ) ---
EXAM DESCRIPTION: CHEST SINGLE VIEW COMPLETED DATE/TIME: 01/26/2018 9:43 am REASON FOR STUDY: respiratory failure COMPARISON: CT chest 12/31/2017, 01/25/2018 Chest films 11/22/2013, 12/29/2017, 01/25/2018, 01/27/2008 EXAM PARAMETERS: NUMBER OF VIEWS: One view. TECHNIQUE: Single frontal radiographic view of the chest acquired. RADIATION DOSE: NA LIMITATIONS: None. FINDINGS: LUNGS AND PLEURA: Patchy right lower lobe airspace disease is unchanged. Stable bandlike scarring along the lateral aspect right minor fissure, stable right hilar enlargement . Left lung well inflated and grossly clear. No right or left pleural effusion. No pneumothorax. MEDIASTINUM AND HILAR STRUCTURES: Stable enlargement right hilum. Stable left-sided calcified hilar lymph nodes. HEART AND VASCULAR STRUCTURES: Heart normal in size. Normal vasculature. BONES: No acute findings. HARDWARE: Endotracheal tube tip 4 to 5 cm above the veronique. Right jugular central line tip in the gary perior vena cava. Nasogastric tube tip and side port in the stomach OTHER: No other significant finding. IMPRESSION: Tubes and lines in good positioning. No acute left-sided infiltrates. Stable alveolar and interstitial infiltrate right lower lobe, bandlike scarring right minor fissure, and right hilar enlargement. TECHNICAL DOCUMENTATION: JOB ID: [id number] [employer]- All Rights Reserved Reading location - IP/workstation name: [facility]
--- NOTE | 2018-01-26 10:07 | EKG REPORT ---
SEVERITY:- BORDERLINE ECG - SINUS RHYTHM BORDERLINE PROLONGED QT INTERVAL : Confirmed by: Kristyn Alvarez 26-Jan-2018 10:06:37
[2018-01-26] MEDS ORDERED: FAMOTIDINE INJ/PF 20 MG/2 ML SDV IV ONE ×2 (11:00→14:45)
--- NOTE | 2018-01-26 11:06 | XCELERA REPORT ---
[address] [address] Transthoracic Echocardiogram Report Name: HALEY LESTER Age: 72 yrs Gender: Female : 1945 Patient Status: Inpatient Patient Location: ICU^605^A Study Date: 01/26/2018 09:15 AM Height: 65 in Weight: 168 lb BSA: 1.8 m2 Procedure: A complete two-dimensional transthoracic echocardiogram was performed (2D, M-mode, spectral and color flow Doppler). The study was technically adequate with some images being suboptimal in quality. Reason For Study: acute respiratory failure Ordering Physician: KIMBERLEY JEREZ Performed By: Brianna Guadalupe Interpretation Summary The left ventricular ejection fraction is normal. Doppler measurements suggest pseudonormalized left ventricular relaxation, which is associated with grade II/IV or mild to moderate diastolic dysfunction There is mild concentric left ventricular hypertrophy. The left ventricle is grossly normal size. Wall motion cannot be accurately commented on, but no definite regional wall motion abnormalities noted. The right ventricle appears to be hypertrophied The right ventricular systolic function is normal. The right ventricle is grossly normal size. The left atrial size is normal. The right atrium is normal in size There is a trace to mild amount of mitral regurgitation There is no mitral valve stenosis. No aortic regurgitation is present. There is no aortic valve stenosis There is a mild amount of tricuspid regurgitation There is mild to moderate pulmonary hypertension by echo Right ventricular systolic pressure is estimated to be elevated at 40- 50mmHg. The aortic root is not well visualized but is probably normal size. The inferior vena cava appeared normal and decreased < 50% with respiration (RAP 10-15 mmHg) There is no pericardial effusion. MMode/2D Measurements & Calculations RVDd: 2.1 cm LVIDd: 4.2 cm FS: 33.8 % Ao root diam: 2.6 cm IVSd: 1.0 cm LVIDs: 2.8 cm EDV(Teich): 76.9 ml LVPWd: 0.96 cm ESV(Teich): 28.4 ml Ao root area: 5.4 cm2 EF(Teich): 63.1 % LA dimension: 2.4 cm Doppler Measurements & Calculations MV E max lasha: MV P1/2t max lasha: Ao V2 max: LV V1 max P.5 cm/sec 77.5 cm/sec 111.5 cm/sec 5.1 mmHg MV A max lasha: MV P1/2t: 94.6 msec Ao max PG: LV V1 max: 106.6 cm/sec 5.0 mmHg 112.5 cm/sec MV E/A: 0.73 MVA(P1/2t): 2.3 cm2 MV dec slope: 239.9 cm/sec2 MV dec time: 0.31 sec PA V2 max: TR max lasha: 75.0 cm/sec 305.4 cm/sec PA max P.3 mmHgTR max P.3 mmHg Left Ventricle The left ventricle is grossly normal size. There is mild concentric left ventricular hypertrophy. The left ventricular ejection fraction is normal. Doppler measurements suggest pseudonormalized left ventricular relaxation, which is associated with grade II/IV or mild to moderate diastolic dysfunction. Wall motion cannot be accurately commented on, but no definite regional wall motion abnormalities noted. Right Ventricle The right ventricle is grossly normal size. The right ventricle appears to be hypertrophied. The right ventricular systolic function is normal. Atria The right atrium is normal in size. The left atrial size is normal. Interarterial septum not well visualized and not well dopplered. Cannot comment on ASD/PFO presence. Mitral Valve The mitral valve is grossly normal. There is no mitral valve stenosis. There is a trace to mild amount of mitral regurgitation. Aortic Valve The aortic valve is not well visualized secondary to technical limitations. There is no aortic valve stenosis. No aortic regurgitation is present. Tricuspid Valve The tricuspid valve is not well visualized, but is grossly normal. There is no tricuspid stenosis. There is a mild amount of tricuspid regurgitation. There is mild to moderate pulmonary hypertension by echo. Right ventricular systolic pressure is estimated to be elevated at 40-50mmHg. Pulmonic Valve The pulmonic valve is not well visualized. Great Vessels The aortic root is not well visualized but is probably normal size. The inferior vena cava appeared normal and decreased < 50% with respiration (RAP 10-15 mmHg). Effusions There is no pericardial effusion. : KIMBERLEY JEREZ > Kristyn Alvarez
[2018-01-26] MEDS ORDERED: MAGNESIUM HYDROXIDE SUSP 30 ML UDCUP PO PRN (15:44)
--- NOTE | 2018-01-26 15:44 | PDOC PROGRESS REPORT ---
Subjective Progress Note for:: 01/26/18 Subjective:: Unable to obtain due to mental status and sedation Review of systems Unable to obtain due to mental status and sedation All laboratories and significant diagnostics have been reviewed Reason For Visit: ACUTE RESPIRATORY FAILURE Physical Exam Vital Signs: Temp Pulse Resp BP Pulse Ox 97.0 F 59 L 0 L 133/77 H 98 01/26/18 06:02 01/26/18 06:00 01/26/18 06:02 01/26/18 06:02 01/26/18 06:02 Intake & Output 01/25/18 01/26/18 01/27/18 06:59 06:59 06:59 Intake Total 1446 Output Total 1155 Balance 291 Weight 76.4 kg General appearance: PRESENT: obese Head exam: PRESENT: atraumatic, normocephalic Eye exam: PRESENT: conjunctiva pink, EOMI, PERRLA Ear exam: PRESENT: normal external ear exam Mouth exam: PRESENT: moist Neck exam: PRESENT: full ROM. ABSENT: JVD, lymphadenopathy, tenderness - Adequate movement of air soft crackles throughout Respiratory exam: PRESENT: other Cardiovascular exam: PRESENT: RRR. ABSENT: diastolic murmur, systolic murmur Vascular exam: PRESENT: normal capillary refill GI/Abdominal exam: PRESENT: normal bowel sounds, soft. ABSENT: tenderness Extremities exam: PRESENT: +2 edema. ABSENT: full ROM Musculoskeletal exam: ABSENT: ambulatory Neurological exam: PRESENT: other - Sedated Skin exam: PRESENT: intact, normal color Results Laboratory Results: 01/26/18 06:30 01/26/18 06:30 01/25/18 01/25/18 01/25/18 19:40 19:43 21:31 WBC RBC Hgb Hct MCV MCH MCHC RDW Plt Count Seg Neutrophils % Lymphocytes % Monocytes % Eosinophils % Basophils % Absolute Neutrophils Absolute Lymphocytes Absolute Monocytes Absolute Eosinophils Absolute Basophils Carbonic Acid 1.03 L HCO3/H2CO3 Ratio 20:1 ABG pH 7.42 ABG pCO2 34.2 L ABG pO2 191.2 H ABG HCO3 21.6 ABG O2 Saturation 99.3 H ABG Base Excess -2.3 FiO2 60% Sodium Potassium Chloride Carbon Dioxide Anion Gap BUN Creatinine Est GFR ( Amer) Est GFR (Non-Af Amer) Glucose Lactic Acid 2.3 H Calcium Phosphorus Magnesium Urine Color YELLOW Urine Appearance CLEAR Urine pH 6.0 Ur Specific [place] 1.011 Urine Protein 100 H Urine Glucose (UA) 50 H Urine Ketones NEGATIVE Urine Blood SMALL H Urine Nitrite NEGATIVE Ur Leukocyte Esterase NEGATIVE Urine RBC (Auto) 3 01/26/18 01/26/18 01/26/18 06:30 06:30 06:30 WBC 5.7 RBC 3.97 Hgb 11.5 L Hct 34.4 L MCV 87 MCH 29.0 MCHC 33.6 RDW 14.1 H Plt Count 151 Seg Neutrophils % 88.7 H Lymphocytes % 6.7 L Monocytes % 4.5 Eosinophils % 0.0 Basophils % 0.1 Absolute Neutrophils 5.0 Absolute Lymphocytes 0.4 L Absolute Monocytes 0.3 Absolute Eosinophils 0.0 Absolute Basophils 0.0 Carbonic Acid 0.85 L HCO3/H2CO3 Ratio 23:1 ABG pH 7.47 H ABG pCO2 28.1 L ABG pO2 132.3 H ABG HCO3 19.9 L ABG O2 Saturation 98.8 H ABG Base Excess -2.7 FiO2 40% Sodium 140.4 Potassium 3.4 L Chloride 109 H Carbon Dioxide 24 Anion Gap 7 BUN 14 Creatinine 0.69 Est GFR ( Amer) > 60 Est GFR (Non-Af Amer) > 60 Glucose 169 H Lactic Acid Calcium 8.2 L Phosphorus 2.6 Magnesium 1.9 Urine Color Urine Appearance Urine pH Ur Specific [place] Urine Protein Urine Glucose (UA) Urine Ketones Urine Blood Urine Nitrite Ur Leukocyte Esterase Urine RBC (Auto) 01/25/18 01/26/18 01/26/18 21:27 01:50 01:50 Creatine Kinase < 20 L CK-MB (CK-2) Troponin I 0.536 1.010 01/26/18 01/26/18 01/26/18 01:50 06:30 06:30 Creatine Kinase 67 CK-MB (CK-2) < 0.22 3.75 Troponin I 1.020 Impressions: Chest/Abdomen CTA 01/25/18 00:00 IMPRESSION: 1. No PE. 2. Chronic airspace disease in both lungs, right greater than left. Stable pulmonary nodules. There is increasing density in the right upper lobe probably representing small amount of loculated fluid. No empyema. Chest X-Ray 01/26/18 00:23 IMPRESSION: Right central line. Assessment & Plan - Diagnosis (1) Acute and chronic respiratory failure Qualifiers: Respiratory failure complication: hypoxia and hypercapnia Qualified Code(s) : J96.21 - Acute and chronic respiratory failure with hypoxia; J96.22 - Acute and chronic respiratory failure with hypercapnia; J96.22 - Acute and chronic respiratory failure with hypercapnia; J96.22 - Acute and chronic respiratory failure with hypercapnia Is this a current diagnosis for this admission?: Yes Plan: Still requiring ventilatory support. Being managed by Dr. Ragland (2) Sarcoidosis Is this a current diagnosis for this admission?: Yes Plan: Continue IV steroids (3) HTN (hypertension) Qualifiers: Hypertension type: essential hypertension Qualified Code(s): I10 - Essential (primary) hypertension Is this a current diagnosis for this admission?: Yes Plan: Can come off Levophed and will restart outpatient regimen (4) Dementia Qualifiers: Dementia type: Alzheimer's disease Dementia behavioral disturbance: with behavioral disturbance Is this a current diagnosis for this admission?: Yes Plan: Will continue with outpatient regimen for dementia (5) Hypothyroidism Qualifiers: Hypothyroidism type: acquired Qualified Code(s): E03.9 - Hypothyroidism, unspecified Is this a current diagnosis for this admission?: Yes Plan: Will continue with outpatient regimen (6) Hypotension Qualifiers: Hypotension type: other hypotension type Qualified Code(s): I95.89 - Other hypotension Is this a current diagnosis for this admission?: Yes Plan: Likely relates to the agents used for intubation. Discontinue Levophed and keep on maintenance IV fluids. Resolved (7) Hypokalemia Is this a current diagnosis for this admission?: Yes Plan: Replace IV and p.o. and trend - Time Time Spent with patient: 15-24 minutes Medications reviewed and adjusted accordingly: Yes Anticipated discharge: SNF Within: within 72 hours - Inpatient Certification Based on my medical assessment, after consideration of the patient's comorbidities, presenting symptoms, or acuity I expect that the services needed warrant INPATIENT care.: Yes I certify that my determination is in accordance with my understanding of Medicare's requirements for reasonable and necessary INPATIENT services [42 CFR 412.3e].: Yes Medical Necessity: Need Close Monitoring Due to Risk of Patient Decompensation, Need For Continuous Telemetry Monitoring, Need for Nebulizer Therapy and Monitoring of Response, Need for IV Antibiotics
[2018-01-26] MEDS ORDERED: PETROLATUM WHITE TOP SCH (18:00)
[2018-01-26] MEDS ORDERED: MINERAL OIL TOP SCH (18:00)
[2018-01-26] MEDS: MEMANTINE HCL 10 MG TABLET PO SCH (18:09)
[2018-01-26] MEDS: MINERAL OIL/PETROLATUM,WHITE CREAM 114 GM TP SCH (18:09)
[2018-01-26] MEDS: FUROSEMIDE INJ/PF 20 MG/2 ML SDV IV SCH (18:11)
[2018-01-26] MEDS: ALBUTEROL SULFATE 0.083% NEB 2.5 MG/3 ML AMPUL NEB PRN (18:44)
--- NOTE | 2018-01-26 20:55 | PDOC CONSULTATION ---
Consultation Consult Date: 01/26/18 Attending physician:: KIMBERLEY JEREZ Consult reason:: aspiration History of Present Illness Admission Date/PCP: 01/25/18 19:18 History of Present Illness: HALEY LESTER is a 72 year old female was transferred to the ED from [place].She has a hx of sarcodosis and alzheimer's reported to have aspirated resulting in resp failure .She is currently intubated and sedated. Past Medical History Cardiac Medical History: Reports: Hyperlipidema, Hypertension Denies: Coronary Artery Disease Pulmonary Medical History: Reports: Asthma, Chronic Obstructive Pulmonary Disease (COPD), Other - SARCOIDOSIS EENT Medical History: Reports: None Neurological Medical History: Reports: None Endocrine Medical History: Reports: None, Hypothyroidism Renal/ Medical History: Reports: None Malignancy Medical History: Reports: None GI Medical History: Reports: None Musculoskeltal Medical History: Reports: None Skin Medical History: Reports: None Psychiatric Medical History: Reports: Dementia Denies: Depression Traumatic Medical History: Reports: None Hematology: Reports: None Infectious Medical History: Reports: None Past Surgical History Past Surgical History: Reports: Hysterectomy, Orthopedic Surgery - low back fusion Social History Information Source: [facility] Records Lives with: Other - [facility] Smoking Status: Unknown if Ever Smoked Frequency of Alcohol Use: None Hx Recreational Drug Use: No Drugs: None Hx Prescription Drug Abuse: No - Advance Directive Resuscitation Status: Full Code Family History Parental Family History Reviewed: No Children Family History Reviewed: No Sibling(s) Family History Reviewed.: No Medication/Allergy Home Medications: Acetaminophen [Tylenol 325 mg Tablet] 650 mg PO Q6HP PRN 12/30/17 Benazepril HCl [Lotensin 20 mg Tablet] 20 mg PO Q12 12/30/17 Betamethasone Dipropionate [Diprosone Cream] 1 applic TOP BID 12/30/17 Calcium Carbonate [Calcium] 600 mg PO DAILY 12/30/17 Cholecalciferol (Vitamin D3) [Vitamin D3] 5,000 intlu PO DAILY 12/30/17 Cold Cream/Zinc Oxide/Star/Art [Dermacloud Ointment] 1 applic TOP DAILY Donepezil HCl [Aricept] 10 mg PO DAILY 12/30/17 Ferrous Sulfate [Feosol 325 mg Tablet] 325 mg PO DAILY 12/30/17 Furosemide [Lasix 40 mg Tablet] 40 mg PO DAILY 12/30/17 Levothyroxine Sodium [Synthroid] 125 mcg PO Q6AM 12/30/17 Magnesium Hydroxide [Milk of Magnesia 30 ml Udcup] 30 ml PO DAILYP PRN 12/30/17 Memantine HCl [Namenda 10 mg Tablet] 10 mg PO BID 12/30/17 Mineral Oil/Petrolatum,White [Minerin Creme] 1 applic TOP BID 12/30/17 Potassium Chloride [K-Tab ER] 20 meq PO DAILY 12/30/17 Risperidone [Risperdal] 0.5 mg PO Q12 12/30/17 Verapamil HCl [Verapamil ER Pm] 300 mg PO QHS 12/30/17 Docusate Sodium [Colace 100 mg Capsule] 100 mg PO DAILY capsule 01/03/18 Ipratropium/Albuterol Sulfate [Duoneb 3 ml Ampul] 3 ml NEB RTQ6 vial.neb Mirtazapine [Remeron] 30 mg PO QHS #14 tablet 01/03/18 Thiamine HCl [Thiamine 100 mg Tablet] 100 mg PO DAILY tablet 01/03/18 Fluticasone Propionate [Flonase Nasal Herminie 50 Mcg/[place]inie 16 gm] 2 spray NASL Q12 01/26/18 Guaifenesin [Robitussin Syrup 200 mg/10 ml Ud Cup] 200 mg PO Q4HP PRN 01/26/18 Ipratropium/Albuterol Sulfate [Duoneb 3 ml Ampul] 3 ml NEB [id number] PRN 01/26/18 Neomycin/Bacitracin/Polymyxinb [Neosporin Ointment] 1 applic TOP PRN PRN Allergies/Adverse Reactions: No Known Allergies Allergy (Verified 12/01/17 23:53) Review of Systems ROS unobtainable: Due to endotracheal tube Physical Exam Vital Signs: Temp Pulse Resp BP Pulse Ox 97.2 F 71 14 99/61 L 100 01/26/18 10:00 01/26/18 10:00 01/26/18 10:00 01/26/18 10:00 01/26/18 10:00 Intake & Output 01/25/18 01/26/18 01/27/18 06:59 06:59 06:59 Intake Total 1446 Output Total 1155 615 Balance 291 -615 Weight 76.4 kg General appearance: PRESENT: no acute distress, disheveled, well-developed. ABSENT: cooperative Head exam: PRESENT: atraumatic, normocephalic Eye exam: PRESENT: conjunctiva pale. ABSENT: nystagmus, periorbital swelling, scleral icterus Mouth exam: PRESENT: dry mucosa, neck supple, tongue midline, other - ET tube Neck exam: ABSENT: carotid bruit, JVD, lymphadenopathy, thyromegaly, tracheal deviation, tracheostomy Respiratory exam: PRESENT: decreased breath sounds, prolonged expiratory phas, rales, rhonchi, symmetrical, tachypnea, unlabored. ABSENT: retraction, stridor Cardiovascular exam: PRESENT: RRR, +S1, +S2, tachycardia Pulses: PRESENT: normal radial pulses GI/Abdominal exam: PRESENT: diminished bowel sounds, soft Extremities exam: ABSENT: clubbing, joint swelling Musculoskeletal exam: ABSENT: ambulatory, deformity, dislocation Neurological exam: ABSENT: alert, awake, oriented to person Skin exam: PRESENT: dry, mottled - distal lower ext bilaterally, warm Results Laboratory Results: 01/26/18 06:30 01/26/18 06:30 01/25/18 01/25/18 01/25/18 19:40 19:43 21:31 WBC RBC Hgb Hct MCV MCH MCHC RDW Plt Count Seg Neutrophils % Lymphocytes % Monocytes % Eosinophils % Basophils % Absolute Neutrophils Absolute Lymphocytes Absolute Monocytes Absolute Eosinophils Absolute Basophils Carbonic Acid 1.03 L HCO3/H2CO3 Ratio 20:1 ABG pH 7.42 ABG pCO2 34.2 L ABG pO2 191.2 H ABG HCO3 21.6 ABG O2 Saturation 99.3 H ABG Base Excess -2.3 FiO2 60% Sodium Potassium Chloride Carbon Dioxide Anion Gap BUN Creatinine Est GFR ( Amer) Est GFR (Non-Af Amer) Glucose Lactic Acid 2.3 H Calcium Phosphorus Magnesium TSH Urine Color YELLOW Urine Appearance CLEAR Urine pH 6.0 Ur Specific [place] 1.011 Urine Protein 100 H Urine Glucose (UA) 50 H Urine Ketones NEGATIVE Urine Blood SMALL H Urine Nitrite NEGATIVE Ur Leukocyte Esterase NEGATIVE Urine RBC (Auto) 3 01/26/18 01/26/18 01/26/18 06:30 06:30 06:30 WBC 5.7 RBC 3.97 Hgb 11.5 L Hct 34.4 L MCV 87 MCH 29.0 MCHC 33.6 RDW 14.1 H Plt Count 151 Seg Neutrophils % 88.7 H Lymphocytes % 6.7 L Monocytes % 4.5 Eosinophils % 0.0 Basophils % 0.1 Absolute Neutrophils 5.0 Absolute Lymphocytes 0.4 L Absolute Monocytes 0.3 Absolute Eosinophils 0.0 Absolute Basophils 0.0 Carbonic Acid 0.85 L HCO3/H2CO3 Ratio 23:1 ABG pH 7.47 H ABG pCO2 28.1 L ABG pO2 132.3 H ABG HCO3 19.9 L ABG O2 Saturation 98.8 H ABG Base Excess -2.7 FiO2 40% Sodium 140.4 Potassium 3.4 L Chloride 109 H Carbon Dioxide 24 Anion Gap 7 BUN 14 Creatinine 0.69 Est GFR ( Amer) > 60 Est GFR (Non-Af Amer) > 60 Glucose 169 H Lactic Acid Calcium 8.2 L Phosphorus 2.6 Magnesium 1.9 TSH Urine Color Urine Appearance Urine pH Ur Specific Joseph Urine Protein Urine Glucose (UA) Urine Ketones Urine Blood Urine Nitrite Ur Leukocyte Esterase Urine RBC (Auto) 01/26/18 06:30 WBC RBC Hgb Hct MCV MCH MCHC RDW Plt Count Seg Neutrophils % Lymphocytes % Monocytes % Eosinophils % Basophils % Absolute Neutrophils Absolute Lymphocytes Absolute Monocytes Absolute Eosinophils Absolute Basophils Carbonic Acid HCO3/H2CO3 Ratio ABG pH ABG pCO2 ABG pO2 ABG HCO3 ABG O2 Saturation ABG Base Excess FiO2 Sodium Potassium Chloride Carbon Dioxide Anion Gap BUN Creatinine Est GFR ( Amer) Est GFR (Non-Af Amer) Glucose Lactic Acid Calcium Phosphorus Magnesium TSH 0.50 Urine Color Urine Appearance Urine pH Ur Specific Joseph Urine Protein Urine Glucose (UA) Urine Ketones Urine Blood Urine Nitrite Ur Leukocyte Esterase Urine RBC (Auto) 01/25/18 01/26/18 01/26/18 21:27 01:50 01:50 Creatine Kinase < 20 L CK-MB (CK-2) Troponin I 0.536 1.010 01/26/18 01/26/18 01/26/18 01:50 06:30 06:30 Creatine Kinase 67 CK-MB (CK-2) < 0.22 3.75 Troponin I 1.020 Impressions: Chest/Abdomen CTA 01/25/18 00:00 IMPRESSION: 1. No PE. 2. Chronic airspace disease in both lungs, right greater than left. Stable pulmonary nodules. There is increasing density in the right upper lobe probably representing small amount of loculated fluid. No empyema. Chest X-Ray 01/26/18 09:00 IMPRESSION: Tubes and lines in good positioning. No acute left-sided infiltrates. Stable alveolar and interstitial infiltrate right lower lobe, bandlike scarring right minor fissure, and right hilar enlargement.
[2018-01-26] MEDS: FAMOTIDINE INJ/PF 20 MG/2 ML SDV IV SCH (21:21)
[2018-01-26] MEDS: BENAZEPRIL HCL 20 MG TABLET PO SCH (21:21)
[2018-01-26] MEDS: MIRTAZAPINE 15 MG TABLET PO SCH (21:22)
[2018-01-26] MEDS: NORMAL SALINE 1000 ML 1,000 ML IV PRN (23:56)
[2018-01-27] MEDS: FENTANYL CITRATE INJ/PF 100 MCG/2 ML AMPUL IV PRN (02:44)
[2018-01-27] MEDS: PIPERACILLIN SODIUM/TAZOBACTAM 3.375 GM in NORMAL SALINE 100 ML IV SCH ×4 (02:45→21:20)
[2018-01-27] MEDS: METHYLPREDNISOLONE INJ 40 MG/1 ML SDV IV SCH ×3 (02:46→17:27)
[2018-01-27] MEDS: MIDAZOLAM HCL 50 MG/100 ML RTUINJ IV PRN ×3 (04:21→17:28)
[2018-01-27] MEDS: ALBUTEROL SULFATE 0.083% NEB 2.5 MG/3 ML AMPUL NEB PRN ×3 (05:25→21:18)
[2018-01-27 05:50] LABS: ABSOLUTE LYMPHOCYTES (AUTO) 0.8 10^3/uL (0.5-4.7); ABSOLUTE MONOCYTES (AUTO) 0.5 10^3/uL (0.1-1.4); ABSOLUTE NEUT (AUTO) 5.9 10^3/uL (1.7-8.2); BASOPHILS % (AUTO) 0.2 % (0-2); HEMATOCRIT 36.2 % (36.0-47.0); LYMPHOCYTES % (AUTO) 11.2 % (13-45); MEAN CORPUSCULAR HEMOGLOBIN 28.8 pg (27.0-33.4); MEAN CORPUSCULAR VOLUME 87 fl (80-97); MONOCYTES % (AUTO) 6.7 % (3-13); PLATELET COUNT 131 10^3/uL (150-450); RED BLOOD COUNT 4.16 10^6/uL (3.72-5.28); SEGMENTED NEUTROPHILS % (AUTO) 81.9 % (42-78); TOTAL CELLS COUNTED % (AUTO) 100 %; WHITE BLOOD COUNT 7.2 10^3/uL (4.0-10.5)
[2018-01-27] MEDS: FUROSEMIDE INJ/PF 20 MG/2 ML SDV IV SCH ×2 (05:52→17:27)
[2018-01-27] MEDS: LEVOTHYROXINE SODIUM 0.025 MG TABLET PO SCH (05:53)
[2018-01-27] MEDS: LEVOTHYROXINE SODIUM 0.1 MG TABLET PO SCH (05:53)
[2018-01-27] MEDS: HEPARIN SOD (PORCINE) 5,000 UNIT/ML 1 ML SYRINGE SUBCUT SCH ×3 (05:53→21:20)
[2018-01-27] MEDS ORDERED: (PENDING PHARMACY ID) (Levothyroxine Sodium [Synthroid] 125 MCG) PO SCH (06:00)
[2018-01-27 06:01] LABS: ARTERIAL BLOOD BASE EXCESS -2.2 mmol/L; ARTERIAL BLOOD H2CO3 1.18 mmol/L (1.05-1.35); ARTERIAL BLOOD HCO3 22.7 mmol/L (20-26); ARTERIAL BLOOD O2 SATURATION 98.5 % (94-98); ARTERIAL BLOOD PCO2 39.3 mmHg (35-45); ARTERIAL BLOOD PH 7.38 (7.35-7.45); ARTERIAL BLOOD PO2 129.3 mmHg (80-100); ARTERIAL BLOOD TOTAL CO2 23.9 mmol/L (21-25)
[2018-01-27 06:03] LABS: ARTERIAL BLOOD FIO2 35%
[2018-01-27 06:20] LABS: ANION GAP 9 (5-19); BLOOD UREA NITROGEN 14 mg/dL (7-20); CALCIUM 8.1 mg/dL (8.4-10.2); CARBON DIOXIDE 23 mmol/L (22-30); CHLORIDE 113 mmol/L (98-107); GLUCOSE 115 mg/dL (75-110); PHOSPHORUS 2.8 mg/dL (2.5-4.5); POTASSIUM 3.3 mmol/L (3.6-5.0); SODIUM 144.6 mmol/L (137-145)
--- NOTE | 2018-01-27 06:52 | RADIOLOGY REPORT (SQ) ---
EXAM DESCRIPTION: CHEST SINGLE VIEW CLINICAL HISTORY: pna resp failure COMPARISON: 01/26/2018 FINDINGS: Single frontal view of the chest. Right subclavian central venous catheter with tip in SVC. Endotracheal tube with tip 4 cm above the veronique. NG tube with tip below the diaphragm. Tortuosity of the thoracic aorta. Heart is not enlarged. Improved aeration of the right lung base with persistent linear right midlung opacity and right perihilar opacity. No definite pneumothorax. No acute osseous abnormalities. Upper abdominal soft tissues are unremarkable. IMPRESSION: 1. Improved aeration of the right lung base with persistent right perihilar and right midlung opacity.
[2018-01-27] MEDS: POTASSIUM CHLORIDE 20 MEQ/15 ML UDCUP PO SCH ×2 (08:44→12:40)
[2018-01-27] MEDS: FERROUS SULFATE 325 MG TABLET PO SCH (08:45)
[2018-01-27] MEDS: ASPIRIN 325 MG TABLET NG SCH (08:45)
[2018-01-27] MEDS: CHOLECALCIFEROL (D3) 1,000 UNIT TABLET PO SCH (08:46)
[2018-01-27] MEDS: CALCIUM CARBONATE 500 MG TABLET PO SCH (08:46)
[2018-01-27] MEDS: FAMOTIDINE INJ/PF 20 MG/2 ML SDV IV SCH ×2 (08:51→21:19)
[2018-01-27] MEDS ORDERED: (PENDING PHARMACY ID) (Potassium Chloride [K-Tab Er] 20 MEQ) PO SCH (10:00)
[2018-01-27] MEDS ORDERED: POTASSIUM CHLORIDE 10 MEQ TABLET.SA PO SCH (10:00)
[2018-01-27] MEDS ORDERED: (PENDING PHARMACY ID) (Donepezil Hcl [Aricept] 10 MG) PO SCH (10:00)
[2018-01-27] MEDS ORDERED: CHOLECALCIFEROL PO SCH (10:00)
[2018-01-27] MEDS ORDERED: FUROSEMIDE 40 MG TABLET PO SCH (10:00)
[2018-01-27] MEDS ORDERED: (PENDING PHARMACY ID) (Calcium Carbonate [Calcium] 600 MG) PO SCH (10:00)
[2018-01-27] MEDS: MEMANTINE HCL 10 MG TABLET PO SCH ×2 (12:26→17:26)
[2018-01-27] MEDS: BENAZEPRIL HCL 20 MG TABLET PO SCH ×2 (12:28→21:19)
[2018-01-27] MEDS: DONEPEZIL HCL 5 MG TABLET PO SCH (12:29)
[2018-01-27] MEDS: MINERAL OIL/PETROLATUM,WHITE CREAM 114 GM TP SCH ×2 (12:29→17:28)
[2018-01-27] MEDS: NORMAL SALINE 1000 ML 1,000 ML IV PRN ×2 (12:37→21:21)
[2018-01-27] MEDS: THIAMINE HCL 100 MG TABLET PO SCH (12:40)
--- NOTE | 2018-01-27 12:43 | PDOC PROGRESS REPORT ---
Subjective Progress Note for:: 01/27/18 Subjective:: Sedated&Intubated Reason For Visit: ACUTE RESPIRATORY FAILURE Physical Exam Vital Signs: Temp Pulse Resp BP Pulse Ox 96.6 F L 98 12 117/55 L 100 01/27/18 06:00 01/27/18 07:54 01/27/18 07:54 01/27/18 05:48 01/27/18 07:54 Intake & Output 01/26/18 01/27/18 01/28/18 06:59 06:59 06:59 Intake Total 1446 3077 Output Total 1155 2560 Balance 291 517 Weight 76.4 kg 76.8 kg General appearance: PRESENT: no acute distress, disheveled, well-developed. ABSENT: cooperative Head exam: PRESENT: atraumatic, normocephalic Eye exam: PRESENT: conjunctiva pale. ABSENT: EOMI, nystagmus, periorbital swelling, scleral icterus Mouth exam: PRESENT: dry mucosa, neck supple, tongue midline, other - ET tube Neck exam: ABSENT: carotid bruit, JVD, lymphadenopathy, thyromegaly, tracheal deviation, tracheostomy Respiratory exam: PRESENT: decreased breath sounds, prolonged expiratory phas, rales, rhonchi, symmetrical, unlabored. ABSENT: stridor, tachypnea Cardiovascular exam: PRESENT: RRR, +S1, +S2, tachycardia Pulses: PRESENT: normal radial pulses GI/Abdominal exam: PRESENT: diminished bowel sounds, soft - [id number] Extremities exam: ABSENT: calf tenderness, clubbing, pedal edema Musculoskeletal exam: ABSENT: ambulatory, deformity, dislocation Neurological exam: ABSENT: alert, awake, oriented to person Skin exam: PRESENT: dry, warm Results Laboratory Results: 01/27/18 05:35 01/27/18 05:35 01/26/18 01/27/18 01/27/18 06:30 05:35 05:35 WBC RBC Hgb Hct MCV MCH MCHC RDW Plt Count Seg Neutrophils % Lymphocytes % Monocytes % Eosinophils % Basophils % Absolute Neutrophils Absolute Lymphocytes Absolute Monocytes Absolute Eosinophils Absolute Basophils Carbonic Acid 1.18 HCO3/H2CO3 Ratio 19:1 ABG pH 7.38 ABG pCO2 39.3 ABG pO2 129.3 H ABG HCO3 22.7 ABG O2 Saturation 98.5 H ABG Base Excess -2.2 FiO2 35% Sodium 144.6 Potassium 3.3 L Chloride 113 H Carbon Dioxide 23 Anion Gap 9 BUN 14 Creatinine 0.76 Est GFR ( Amer) > 60 Est GFR (Non-Af Amer) > 60 Glucose 115 H Calcium 8.1 L Phosphorus 2.8 Magnesium 2.1 TSH 0.50 01/27/18 05:35 WBC 7.2 RBC 4.16 Hgb 12.0 Hct 36.2 MCV 87 MCH 28.8 MCHC 33.0 RDW 15.0 H Plt Count 131 L Seg Neutrophils % 81.9 H Lymphocytes % 11.2 L Monocytes % 6.7 Eosinophils % 0.0 Basophils % 0.2 Absolute Neutrophils 5.9 Absolute Lymphocytes 0.8 Absolute Monocytes 0.5 Absolute Eosinophils 0.0 Absolute Basophils 0.0 Carbonic Acid HCO3/H2CO3 Ratio ABG pH ABG pCO2 ABG pO2 ABG HCO3 ABG O2 Saturation ABG Base Excess FiO2 Sodium Potassium Chloride Carbon Dioxide Anion Gap BUN Creatinine Est GFR ( Amer) Est GFR (Non-Af Amer) Glucose Calcium Phosphorus Magnesium TSH 01/25/18 01/26/18 01/26/18 21:27 01:50 01:50 Creatine Kinase < 20 L CK-MB (CK-2) Troponin I 0.536 1.010 01/26/18 01/26/18 01/26/18 01:50 06:30 06:30 Creatine Kinase 67 CK-MB (CK-2) < 0.22 3.75 Troponin I 1.020 Impressions: Chest/Abdomen CTA 01/25/18 00:00 IMPRESSION: 1. No PE. 2. Chronic airspace disease in both lungs, right greater than left. Stable pulmonary nodules. There is increasing density in the right upper lobe probably representing small amount of loculated fluid. No empyema. Chest X-Ray 01/27/18 06:00 IMPRESSION: 1. Improved aeration of the right lung base with persistent right perihilar and right midlung opacity. Assessment & Plan - Diagnosis (1) Acute and chronic respiratory failure Qualifiers: Respiratory failure complication: hypoxia and hypercapnia Qualified Code(s) : J96.21 - Acute and chronic respiratory failure with hypoxia; J96.22 - Acute and chronic respiratory failure with hypercapnia; J96.22 - Acute and chronic respiratory failure with hypercapnia; J96.22 - Acute and chronic respiratory failure with hypercapnia Is this a current diagnosis for this admission?: Yes Plan: Aspiration (2) Sarcoidosis Is this a current diagnosis for this admission?: Yes Plan: Stable (3) Aspiration into respiratory tract Is this a current diagnosis for this admission?: Yes Plan: Slightly improved - Time Total Critical Time (Minutes): 50
--- NOTE | 2018-01-27 19:01 | PDOC PROGRESS REPORT ---
Subjective Progress Note for:: 01/27/18 Subjective:: Unable to obtain due to mental status and sedation Review of systems Unable to obtain due to mental status and sedation All laboratories and significant diagnostics have been reviewed Reason For Visit: ACUTE RESPIRATORY FAILURE Physical Exam Vital Signs: Temp Pulse Resp BP Pulse Ox 96.6 F L 60 12 117/55 L 98 01/27/18 06:00 01/27/18 05:25 01/27/18 06:00 01/27/18 05:48 01/27/18 06:00 Intake & Output 01/26/18 01/27/18 01/28/18 06:59 06:59 06:59 Intake Total 1446 3077 Output Total 1155 2560 Balance 291 517 Weight 76.4 kg 76.8 kg General appearance: PRESENT: cooperative. ABSENT: obese Head exam: ABSENT: atraumatic, normocephalic Eye exam: PRESENT: conjunctiva pink, EOMI, PERRLA Ear exam: PRESENT: normal external ear exam Neck exam: PRESENT: full ROM. ABSENT: JVD, lymphadenopathy, tenderness Respiratory exam: PRESENT: other - Crackles heard throughout Cardiovascular exam: PRESENT: RRR. ABSENT: diastolic murmur, systolic murmur Vascular exam: PRESENT: normal capillary refill GI/Abdominal exam: PRESENT: normal bowel sounds, soft. ABSENT: tenderness Extremities exam: PRESENT: +1 edema. ABSENT: full ROM Musculoskeletal exam: ABSENT: ambulatory Neurological exam: PRESENT: other - Sedated Results Laboratory Results: 01/27/18 05:35 01/27/18 05:35 01/26/18 01/27/18 01/27/18 06:30 05:35 05:35 WBC RBC Hgb Hct MCV MCH MCHC RDW Plt Count Seg Neutrophils % Lymphocytes % Monocytes % Eosinophils % Basophils % Absolute Neutrophils Absolute Lymphocytes Absolute Monocytes Absolute Eosinophils Absolute Basophils Carbonic Acid 1.18 HCO3/H2CO3 Ratio 19:1 ABG pH 7.38 ABG pCO2 39.3 ABG pO2 129.3 H ABG HCO3 22.7 ABG O2 Saturation 98.5 H ABG Base Excess -2.2 FiO2 35% Sodium 144.6 Potassium 3.3 L Chloride 113 H Carbon Dioxide 23 Anion Gap 9 BUN 14 Creatinine 0.76 Est GFR ( Amer) > 60 Est GFR (Non-Af Amer) > 60 Glucose 115 H Calcium 8.1 L Phosphorus 2.8 Magnesium 2.1 TSH 0.50 01/27/18 05:35 WBC 7.2 RBC 4.16 Hgb 12.0 Hct 36.2 MCV 87 MCH 28.8 MCHC 33.0 RDW 15.0 H Plt Count 131 L Seg Neutrophils % 81.9 H Lymphocytes % 11.2 L Monocytes % 6.7 Eosinophils % 0.0 Basophils % 0.2 Absolute Neutrophils 5.9 Absolute Lymphocytes 0.8 Absolute Monocytes 0.5 Absolute Eosinophils 0.0 Absolute Basophils 0.0 Carbonic Acid HCO3/H2CO3 Ratio ABG pH ABG pCO2 ABG pO2 ABG HCO3 ABG O2 Saturation ABG Base Excess FiO2 Sodium Potassium Chloride Carbon Dioxide Anion Gap BUN Creatinine Est GFR ( Amer) Est GFR (Non-Af Amer) Glucose Calcium Phosphorus Magnesium TSH 01/25/18 01/26/18 01/26/18 21:27 01:50 01:50 Creatine Kinase < 20 L CK-MB (CK-2) Troponin I 0.536 1.010 01/26/18 01/26/18 01/26/18 01:50 06:30 06:30 Creatine Kinase 67 CK-MB (CK-2) < 0.22 3.75 Troponin I 1.020 Impressions: Chest/Abdomen CTA 01/25/18 00:00 IMPRESSION: 1. No PE. 2. Chronic airspace disease in both lungs, right greater than left. Stable pulmonary nodules. There is increasing density in the right upper lobe probably representing small amount of loculated fluid. No empyema. Chest X-Ray 01/27/18 06:00 IMPRESSION: 1. Improved aeration of the right lung base with persistent right perihilar and right midlung opacity. Assessment & Plan - Diagnosis (1) Acute and chronic respiratory failure Qualifiers: Respiratory failure complication: hypoxia and hypercapnia Qualified Code(s) : J96.21 - Acute and chronic respiratory failure with hypoxia; J96.22 - Acute and chronic respiratory failure with hypercapnia; J96.22 - Acute and chronic respiratory failure with hypercapnia; J96.22 - Acute and chronic respiratory failure with hypercapnia Is this a current diagnosis for this admission?: Yes Plan: Still requiring ventilatory support. Being managed by Dr. Ragland (2) Sarcoidosis Is this a current diagnosis for this admission?: Yes Plan: Continue IV steroids (3) HTN (hypertension) Qualifiers: Hypertension type: essential hypertension Qualified Code(s): I10 - Essential (primary) hypertension Is this a current diagnosis for this admission?: Yes Plan: Continue outpatient regimen (4) Dementia Qualifiers: Dementia type: Alzheimer's disease Dementia behavioral disturbance: with behavioral disturbance Is this a current diagnosis for this admission?: Yes Plan: Continue with outpatient regimen for dementia (5) Hypothyroidism Qualifiers: Hypothyroidism type: acquired Qualified Code(s): E03.9 - Hypothyroidism, unspecified Is this a current diagnosis for this admission?: Yes Plan: Continue with outpatient regimen (6) Hypotension Qualifiers: Hypotension type: other hypotension type Qualified Code(s): I95.89 - Other hypotension Is this a current diagnosis for this admission?: Yes Plan: Likely relates to the agents used for intubation. Resolved (7) Hypokalemia Is this a current diagnosis for this admission?: Yes Plan: Replace IV and p.o. and trend - Time Time Spent with patient: 15-24 minutes Medications reviewed and adjusted accordingly: Yes Anticipated discharge: SNF Within: within 72 hours - Inpatient Certification Based on my medical assessment, after consideration of the patient's comorbidities, presenting symptoms, or acuity I expect that the services needed warrant INPATIENT care.: Yes I certify that my determination is in accordance with my understanding of Medicare's requirements for reasonable and necessary INPATIENT services [42 CFR 412.3e].: Yes Medical Necessity: Need Close Monitoring Due to Risk of Patient Decompensation, Need For Continuous Telemetry Monitoring, Need for Nebulizer Therapy and Monitoring of Response
[2018-01-27] MEDS: MIRTAZAPINE 15 MG TABLET PO SCH (21:18)
[2018-01-28] MEDS: ALBUTEROL SULFATE 0.083% NEB 2.5 MG/3 ML AMPUL NEB PRN ×4 (00:12→20:41)
[2018-01-28] MEDS: PIPERACILLIN SODIUM/TAZOBACTAM 3.375 GM in NORMAL SALINE 100 ML IV SCH ×4 (02:14→21:48)
[2018-01-28] MEDS: MIDAZOLAM HCL 50 MG/100 ML RTUINJ IV PRN ×3 (02:14→23:50)
[2018-01-28] MEDS: METHYLPREDNISOLONE INJ 40 MG/1 ML SDV IV SCH ×3 (02:16→21:49)
[2018-01-28 05:23] LABS: ARTERIAL BLOOD BASE EXCESS -2.1 mmol/L; ARTERIAL BLOOD FIO2 30%; ARTERIAL BLOOD H2CO3 1.09 mmol/L (1.05-1.35); ARTERIAL BLOOD HCO3 22.1 mmol/L (20-26); ARTERIAL BLOOD O2 SATURATION 97.3 % (94-98); ARTERIAL BLOOD PCO2 36.2 mmHg (35-45); ARTERIAL BLOOD PO2 94.7 mmHg (80-100); ARTERIAL BLOOD TOTAL CO2 23.2 mmol/L (21-25)
[2018-01-28] MEDS: LEVOTHYROXINE SODIUM 0.1 MG TABLET PO SCH (05:23)
[2018-01-28] MEDS: LEVOTHYROXINE SODIUM 0.025 MG TABLET PO SCH (05:23)
[2018-01-28] MEDS: HEPARIN SOD (PORCINE) 5,000 UNIT/ML 1 ML SYRINGE SUBCUT SCH ×3 (05:24→21:50)
[2018-01-28] MEDS: FUROSEMIDE INJ/PF 20 MG/2 ML SDV IV SCH (05:24)
[2018-01-28 05:28] LABS: HEMATOCRIT 35.4 % (36.0-47.0); HEMOGLOBIN 11.6 g/dL (12.0-15.5); MEAN CORPUSCULAR HEMOGLOBIN 28.4 pg (27.0-33.4); MEAN CORPUSCULAR HGB CONC 32.7 g/dL (32.0-36.0); MEAN CORPUSCULAR VOLUME 87 fl (80-97); RED BLOOD COUNT 4.08 10^6/uL (3.72-5.28); RED CELL DISTRIBUTION WIDTH 14.9 % (11.5-14.0); WHITE BLOOD COUNT 9.1 10^3/uL (4.0-10.5)
[2018-01-28 05:37] LABS: ANION GAP 8 (5-19); BLOOD UREA NITROGEN 18 mg/dL (7-20); CARBON DIOXIDE 26 mmol/L (22-30); CHLORIDE 112 mmol/L (98-107); GLUCOSE 122 mg/dL (75-110); PHOSPHORUS 2.4 mg/dL (2.5-4.5); POTASSIUM 3.2 mmol/L (3.6-5.0); SODIUM 145.9 mmol/L (137-145)
[2018-01-28 06:03] LABS: ABSOLUTE LYMPHOCYTES# (MANUAL) 0.3 10^3/uL (0.5-4.7); ABSOLUTE MONOCYTES # (MANUAL) 0.6 10^3/uL (0.1-1.4); ABSOLUTE NEUTROPHILS# (MANUAL) 8.2 10^3/uL (1.7-8.2); BAND NEUTROPHILS % (MANUAL) 2 % (3-5); BASOPHILS % (MANUAL) 0 % (0-2); EOSINOPHILS % (MANUAL) 0 % (0-6); LYMPHOCYTES % (MANUAL) 3 % (13-45); MONOCYTES % (MANUAL) 7 % (3-13); SEGMENTED NEUTROPHILS % (MAN) 88 % (42-78); TOTAL CELLS COUNTED 100
[2018-01-28 06:05] LABS: ANISOCYTOSIS SLIGHT; OVALOCYTES 1+; PLATELET CLUMPS PRESENT; PLATELET COMMENT DECREASED; POIKILOCYTOSIS SLIGHT; POLYCHROMASIA SLIGHT
[2018-01-28 06:06] LABS: PLATELET COUNT 142 10^3/uL (150-450)
--- NOTE | 2018-01-28 06:39 | RADIOLOGY REPORT (SQ) ---
EXAM DESCRIPTION: CHEST SINGLE VIEW CLINICAL HISTORY: resp failure COMPARISON: 01/27/2018 FINDINGS: Single frontal view of the chest. Right subclavian central venous catheter with tip in SVC. Endotracheal tube with tip 4 cm above the veronique. NG tube with tip below the diaphragm. Tortuosity of the thoracic aorta. Heart is not enlarged. Interval increase in right perihilar airspace and interstitial opacity. No definite pneumothorax. No acute osseous abnormalities. Upper abdominal soft tissues are unremarkable. IMPRESSION: 1. Mild interval increase in right perihilar interstitial and alveolar opacity. This may be related to atelectasis or worsening pneumonia.
[2018-01-28] MEDS ORDERED: POTASSIUM CHLORIDE 20 MEQ/15 ML UDCUP PO SCH (08:00)
[2018-01-28] MEDS: CHOLECALCIFEROL (D3) 1,000 UNIT TABLET PO SCH (09:24)
[2018-01-28] MEDS: DONEPEZIL HCL 5 MG TABLET PO SCH (09:25)
[2018-01-28] MEDS: ASPIRIN 325 MG TABLET NG SCH (09:25)
[2018-01-28] MEDS: THIAMINE HCL 100 MG TABLET PO SCH (09:25)
[2018-01-28] MEDS: FAMOTIDINE INJ/PF 20 MG/2 ML SDV IV SCH ×2 (09:26→21:50)
[2018-01-28] MEDS: MEMANTINE HCL 10 MG TABLET PO SCH ×2 (09:27→17:44)
[2018-01-28] MEDS: BENAZEPRIL HCL 20 MG TABLET PO SCH (09:27)
[2018-01-28] MEDS: CALCIUM CARBONATE 500 MG TABLET PO SCH (09:27)
[2018-01-28] MEDS: MINERAL OIL/PETROLATUM,WHITE CREAM 114 GM TP SCH ×2 (09:29→17:49)
[2018-01-28] MEDS: FERROUS SULFATE 325 MG TABLET PO SCH (09:30)
[2018-01-28] MEDS ORDERED: FUROSEMIDE 40 MG TABLET PO SCH (10:00)
[2018-01-28] MEDS: POTASSI CL 20 MEQ/50 ML RIDER 20 MEQ/50 ML RTUPB IV SCH ×2 (10:09→12:56)
[2018-01-28] MEDS ORDERED: DEXAMETHASONE SOD PHOSPHATE INJ 4 MG/1 ML VIAL IV ONE (11:00)
--- NOTE | 2018-01-28 11:37 | PDOC PROGRESS REPORT ---
Subjective Progress Note for:: 01/28/18 Subjective:: Unable to obtain due to mental status and sedation. Patient more awake today Review of systems Unable to obtain due to mental status and sedation All laboratories and significant diagnostics have been reviewed Reason For Visit: ACUTE RESPIRATORY FAILURE Physical Exam Vital Signs: Temp Pulse Resp BP Pulse Ox 97.9 F 87 12 153/94 H 99 01/28/18 06:00 01/28/18 00:15 01/28/18 00:15 01/28/18 05:48 01/28/18 06:00 Intake & Output 01/27/18 01/28/18 01/29/18 06:59 06:59 06:59 Intake Total 3077 2914 Output Total 2560 4440 Balance 517 -1526 Weight 76.8 kg 76.6 kg General appearance: PRESENT: other - Sedated Head exam: PRESENT: atraumatic, normocephalic Eye exam: PRESENT: conjunctiva pink, EOMI, PERRLA Ear exam: PRESENT: normal external ear exam Mouth exam: PRESENT: moist Neck exam: ABSENT: JVD, lymphadenopathy, tenderness Respiratory exam: PRESENT: clear to auscultation lino Cardiovascular exam: PRESENT: RRR. ABSENT: diastolic murmur, systolic murmur Vascular exam: PRESENT: normal capillary refill GI/Abdominal exam: PRESENT: normal bowel sounds, soft. ABSENT: tenderness Extremities exam: ABSENT: full ROM, pedal edema Musculoskeletal exam: ABSENT: ambulatory Neurological exam: PRESENT: other - sedated Results Laboratory Results: 01/28/18 05:05 01/28/18 05:05 01/28/18 01/28/18 01/28/18 05:05 05:05 05:05 WBC 9.1 RBC 4.08 Hgb 11.6 L Hct 35.4 L MCV 87 MCH 28.4 MCHC 32.7 RDW 14.9 H Plt Count 142 L Seg Neutrophils % Not Reportable Lymphocytes % Not Reportable Monocytes % Not Reportable Eosinophils % Not Reportable Basophils % Not Reportable Absolute Neutrophils Not Reportable Absolute Lymphocytes Not Reportable Absolute Monocytes Not Reportable Absolute Eosinophils Not Reportable Absolute Basophils Not Reportable Carbonic Acid 1.09 HCO3/H2CO3 Ratio 20:1 ABG pH 7.40 ABG pCO2 36.2 ABG pO2 94.7 ABG HCO3 22.1 ABG O2 Saturation 97.3 ABG Base Excess -2.1 FiO2 30% Sodium 145.9 H Potassium 3.2 L Chloride 112 H Carbon Dioxide 26 Anion Gap 8 BUN 18 Creatinine 0.80 Est GFR ( Amer) > 60 Est GFR (Non-Af Amer) > 60 Glucose 122 H Calcium 8.0 L Phosphorus 2.4 L Magnesium 2.1 01/25/18 01/26/18 01/26/18 21:27 01:50 01:50 Creatine Kinase < 20 L CK-MB (CK-2) Troponin I 0.536 1.010 01/26/18 01/26/18 01/26/18 01:50 06:30 06:30 Creatine Kinase 67 CK-MB (CK-2) < 0.22 3.75 Troponin I 1.020 Impressions: Chest/Abdomen CTA 01/25/18 00:00 IMPRESSION: 1. No PE. 2. Chronic airspace disease in both lungs, right greater than left. Stable pulmonary nodules. There is increasing density in the right upper lobe probably representing small amount of loculated fluid. No empyema. Chest X-Ray 01/28/18 06:00 IMPRESSION: 1. Mild interval increase in right perihilar interstitial and alveolar opacity. This may be related to atelectasis or worsening pneumonia. Assessment & Plan - Diagnosis (1) Acute and chronic respiratory failure Qualifiers: Respiratory failure complication: hypoxia and hypercapnia Qualified Code(s) : J96.21 - Acute and chronic respiratory failure with hypoxia; J96.22 - Acute and chronic respiratory failure with hypercapnia; J96.22 - Acute and chronic respiratory failure with hypercapnia; J96.22 - Acute and chronic respiratory failure with hypercapnia Is this a current diagnosis for this admission?: Yes Plan: Still requiring ventilatory support. Being managed by Dr. Ragland (2) Sarcoidosis Is this a current diagnosis for this admission?: Yes Plan: Wean off IV steroids (3) HTN (hypertension) Qualifiers: Hypertension type: essential hypertension Qualified Code(s): I10 - Essential (primary) hypertension Is this a current diagnosis for this admission?: Yes Plan: Continue outpatient regimen (4) Dementia Qualifiers: Dementia type: Alzheimer's disease Dementia behavioral disturbance: with behavioral disturbance Is this a current diagnosis for this admission?: Yes Plan: Continue with outpatient regimen for dementia (5) Hypothyroidism Qualifiers: Hypothyroidism type: acquired Qualified Code(s): E03.9 - Hypothyroidism, unspecified Is this a current diagnosis for this admission?: Yes Plan: Continue with outpatient regimen (6) Hypotension Qualifiers: Hypotension type: other hypotension type Qualified Code(s): I95.89 - Other hypotension Is this a current diagnosis for this admission?: Yes Plan: Likely relates to the agents used for intubation. Resolved (7) Hypokalemia Is this a current diagnosis for this admission?: Yes Plan: Replace IV and p.o. and trend (8) Pulmonary hypertension Is this a current diagnosis for this admission?: Yes Plan: Continue Lasix IV and transitioned to oral as outpatient - Time Time Spent with patient: 15-24 minutes Medications reviewed and adjusted accordingly: Yes - Inpatient Certification Based on my medical assessment, after consideration of the patient's comorbidities, presenting symptoms, or acuity I expect that the services needed warrant INPATIENT care.: Yes I certify that my determination is in accordance with my understanding of Medicare's requirements for reasonable and necessary INPATIENT services [42 CFR 412.3e].: Yes Medical Necessity: Need Close Monitoring Due to Risk of Patient Decompensation, Need For Continuous Telemetry Monitoring, Need for Nebulizer Therapy and Monitoring of Response, Need for IV Antibiotics
[2018-01-28] MEDS ORDERED: OLANZAPINE INJ/PF 10 MG SDV IM ONE (13:30)
[2018-01-28 16:51] LABS: ARTERIAL BLOOD BASE EXCESS 2.4 mmol/L; ARTERIAL BLOOD FIO2 40%; ARTERIAL BLOOD H2CO3 1.39 mmol/L (1.05-1.35); ARTERIAL BLOOD HCO3 27.8 mmol/L (20-26); ARTERIAL BLOOD O2 SATURATION 99.2 % (94-98); ARTERIAL BLOOD PCO2 46.3 mmHg (35-45); ARTERIAL BLOOD PO2 172.5 mmHg (80-100); ARTERIAL BLOOD TOTAL CO2 29.2 mmol/L (21-25)
[2018-01-28] MEDS ORDERED: MAGNESIUM HYDROXIDE SUSP 30 ML UDCUP NG PRN (20:12)
[2018-01-28] MEDS ORDERED: PHARMACY COMMUNICATION ORDER MC NR (20:15)
[2018-01-28 20:24] LABS: ARTERIAL BLOOD BASE EXCESS -1.8 mmol/L; ARTERIAL BLOOD FIO2 100; ARTERIAL BLOOD H2CO3 2.08 mmol/L (1.05-1.35); ARTERIAL BLOOD HCO3 27.7 mmol/L (20-26); ARTERIAL BLOOD O2 SATURATION 99.7 % (94-98); ARTERIAL BLOOD PH 7.22 (7.35-7.45); ARTERIAL BLOOD PO2 357.2 mmHg (80-100); ARTERIAL BLOOD TOTAL CO2 29.9 mmol/L (21-25)
--- NOTE | 2018-01-28 21:03 | RADIOLOGY REPORT (SQ) ---
EXAM DESCRIPTION: CHEST SINGLE VIEW COMPLETED DATE/TIME: 01/28/2018 8:36 pm REASON FOR STUDY: reintubation COMPARISON: 01/28/2018 EXAM PARAMETERS: NUMBER OF VIEWS: One view. TECHNIQUE: Single frontal radiographic view of the chest acquired. RADIATION DOSE: NA LIMITATIONS: None. FINDINGS: LUNGS AND PLEURA: Once again significant infiltrate is present in the perihilar region on the right and in the right lower lobe. MEDIASTINUM AND HILAR STRUCTURES: No masses. Contour normal. HEART AND VASCULAR STRUCTURES: Heart normal in size. Normal vasculature. BONES: No acute findings. HARDWARE: An endotracheal tube has its tip 4 cm above the veronique. A right subclavian line is present with the tip in the superior vena cava. An NG tube extends to the stomach. OTHER: No other significant finding. IMPRESSION: Right-sided pneumonia. Tubes and catheters as described. TECHNICAL DOCUMENTATION: JOB ID: [id number]- All Rights Reserved Reading location - IP/workstation name: [email or web address]
[2018-01-28 21:28] LABS: ARTERIAL BLOOD H2CO3 1.75 mmol/L (1.05-1.35); ARTERIAL BLOOD HCO3 26.8 mmol/L (20-26); ARTERIAL BLOOD O2 SATURATION 99.6 % (94-98); ARTERIAL BLOOD PCO2 58.3 mmHg (35-45); ARTERIAL BLOOD PH 7.28 (7.35-7.45); ARTERIAL BLOOD PO2 293.8 mmHg (80-100); ARTERIAL BLOOD TOTAL CO2 28.6 mmol/L (21-25)
[2018-01-28 21:30] LABS: ARTERIAL BLOOD FIO2 60%
[2018-01-28] MEDS: MIRTAZAPINE 15 MG TABLET NG SCH (21:49)
[2018-01-28] MEDS: OLANZAPINE INJ/PF 10 MG SDV IM SCH (21:52)
[2018-01-28] MEDS ORDERED: BENAZEPRIL HCL 20 MG TABLET NG SCH (22:00)
[2018-01-28] MEDS: MIDAZOLAM 2 MG/2 ML INJ IV SCH (23:49)
[2018-01-28] MEDS: METOPROLOL TARTRATE PF/INJ 5 MG/5 ML SDV IV PRN (23:54)
[2018-01-29] MEDS: PIPERACILLIN SODIUM/TAZOBACTAM 3.375 GM in NORMAL SALINE 100 ML IV SCH ×4 (03:08→22:36)
[2018-01-29] MEDS: FENTANYL CITRATE INJ/PF 100 MCG/2 ML AMPUL IV PRN ×2 (03:39→19:42)
[2018-01-29] MEDS: MIDAZOLAM HCL 50 MG/100 ML RTUINJ IV PRN ×2 (03:40→19:43)
[2018-01-29] MEDS: LEVOTHYROXINE SODIUM 0.025 MG TABLET NG SCH (05:06)
[2018-01-29] MEDS: LEVOTHYROXINE SODIUM 0.1 MG TABLET NG SCH (05:07)
[2018-01-29] MEDS: HEPARIN SOD (PORCINE) 5,000 UNIT/ML 1 ML SYRINGE SUBCUT SCH ×3 (05:08→22:39)
[2018-01-29] MEDS: MIDAZOLAM 2 MG/2 ML INJ IV SCH ×2 (05:08→11:01)
[2018-01-29 06:01] LABS: ABSOLUTE LYMPHOCYTES (AUTO) 0.6 10^3/uL (0.5-4.7); ABSOLUTE MONOCYTES (AUTO) 0.6 10^3/uL (0.1-1.4); BASOPHILS % (AUTO) 0.1 % (0-2); HEMATOCRIT 36.6 % (36.0-47.0); HEMOGLOBIN 11.9 g/dL (12.0-15.5); LYMPHOCYTES % (AUTO) 7.2 % (13-45); MEAN CORPUSCULAR HEMOGLOBIN 28.6 pg (27.0-33.4); MEAN CORPUSCULAR HGB CONC 32.6 g/dL (32.0-36.0); MEAN CORPUSCULAR VOLUME 88 fl (80-97); MONOCYTES % (AUTO) 7.6 % (3-13); PLATELET COUNT 153 10^3/uL (150-450); RED BLOOD COUNT 4.17 10^6/uL (3.72-5.28); RED CELL DISTRIBUTION WIDTH 14.9 % (11.5-14.0); SEGMENTED NEUTROPHILS % (AUTO) 85.1 % (42-78); TOTAL CELLS COUNTED % (AUTO) 100 %; WHITE BLOOD COUNT 8.2 10^3/uL (4.0-10.5)
[2018-01-29 06:09] LABS: ARTERIAL BLOOD BASE EXCESS 1.7 mmol/L; ARTERIAL BLOOD H2CO3 1.18 mmol/L (1.05-1.35); ARTERIAL BLOOD HCO3 25.9 mmol/L (20-26); ARTERIAL BLOOD O2 SATURATION 98.4 % (94-98); ARTERIAL BLOOD PCO2 39.2 mmHg (35-45); ARTERIAL BLOOD PH 7.44 (7.35-7.45); ARTERIAL BLOOD PO2 118.4 mmHg (80-100); ARTERIAL BLOOD TOTAL CO2 27.1 mmol/L (21-25)
[2018-01-29 06:16] LABS: ARTERIAL BLOOD FIO2 40%
--- NOTE | 2018-01-29 06:16 | RADIOLOGY REPORT (SQ) ---
EXAM DESCRIPTION: CHEST SINGLE VIEW CLINICAL HISTORY: resp fail COMPARISON: 01/28/2018 FINDINGS: Single frontal view of the chest. Right subclavian central venous catheter with tip in SVC. Endotracheal tube with tip 4 cm above the veronique. NG tube with tip below the diaphragm. Tortuosity of the thoracic aorta. Heart is not enlarged. Unchanged right perihilar and linear right midlung opacities. No acute osseous abnormalities. Upper abdominal soft tissues are unremarkable. IMPRESSION: 1. No significant interval change.
[2018-01-29 06:26] LABS: ALANINE AMINOTRANSFERASE 49 U/L (9-52); ALBUMIN 2.7 g/dL (3.5-5.0); ALKALINE PHOSPHATASE 71 U/L (38-126); ASPARTATE AMINO TRANSFERASE 33 U/L (14-36); BILIRUBIN,DIRECT 0.4 mg/dL (0.0-0.4); BILIRUBIN,TOTAL 0.4 mg/dL (0.2-1.3); BLOOD UREA NITROGEN 21 mg/dL (7-20); CALCIUM 8.3 mg/dL (8.4-10.2); CHLORIDE 113 mmol/L (98-107); GLUCOSE 96 mg/dL (75-110); POTASSIUM 3.9 mmol/L (3.6-5.0); TOTAL PROTEIN 5.1 g/dL (6.3-8.2)
[2018-01-29 06:31] LABS: CARBON DIOXIDE 32 mmol/L (22-30); SODIUM 147.7 mmol/L (137-145)
[2018-01-29 06:32] LABS: ANION GAP 3 (5-19)
[2018-01-29] MEDS: DEXTROSE 5%-WATER 1000 ML 1,000 ML IV PRN ×2 (08:23→17:56)
[2018-01-29] MEDS ORDERED: AMLODIPINE BESYLATE 5 MG TABLET PO SCH (10:00)
[2018-01-29 10:31] LABS: INTERNATIONAL RATION (INR) 0.88; PROTHROMBIN TIME 12.6 SEC (11.4-15.4)
[2018-01-29 10:32] LABS: PARTIAL THROMBOPLASTIN TIME 30.5 SEC (23.5-35.8)
--- NOTE | 2018-01-29 10:42 | PDOC PROGRESS REPORT ---
Subjective Progress Note for:: 01/29/18 Subjective:: Unable to obtain due to mental status and sedation. Patient required reintubation overnight due to acute respiratory failure Review of systems Unable to obtain due to mental status and sedation All laboratories and significant diagnostics have been reviewed Reason For Visit: ACUTE RESPIRATORY FAILURE Physical Exam Vital Signs: Temp Pulse Resp BP Pulse Ox 98.2 F 84 6 L 159/106 H 100 01/29/18 06:06 01/28/18 22:00 01/29/18 06:06 01/29/18 06:06 01/29/18 06:06 Intake & Output 01/28/18 01/29/18 01/30/18 06:59 06:59 06:59 Intake Total 2914 2864 Output Total 4420 4295 Balance -1526 -143 Weight 76.6 kg 74.7 kg General appearance: PRESENT: obese, other - Sedated Head exam: PRESENT: atraumatic, normocephalic Eye exam: PRESENT: conjunctiva pink, EOMI, PERRLA Ear exam: PRESENT: normal external ear exam Mouth exam: PRESENT: moist Neck exam: ABSENT: JVD, lymphadenopathy, tenderness Respiratory exam: PRESENT: crackles Cardiovascular exam: PRESENT: RRR. ABSENT: diastolic murmur, systolic murmur Vascular exam: PRESENT: normal capillary refill GI/Abdominal exam: PRESENT: normal bowel sounds, soft Musculoskeletal exam: ABSENT: ambulatory Neurological exam: PRESENT: other - Moving her legs slowly Psychiatric exam: PRESENT: other - sedated Skin exam: PRESENT: normal color Results Laboratory Results: 01/29/18 05:15 01/29/18 05:15 01/28/18 01/28/18 01/28/18 16:35 20:05 21:15 WBC RBC Hgb Hct MCV MCH MCHC RDW Plt Count Seg Neutrophils % Lymphocytes % Monocytes % Eosinophils % Basophils % Absolute Neutrophils Absolute Lymphocytes Absolute Monocytes Absolute Eosinophils Absolute Basophils Carbonic Acid 1.39 H 2.08 H 1.75 H HCO3/H2CO3 Ratio 20:1 13:1 15:1 ABG pH 7.40 7.22 L 7.28 L ABG pCO2 46.3 H 69.0 H 58.3 H ABG pO2 172.5 H 357.2 H 293.8 H ABG HCO3 27.8 H 27.7 H 26.8 H ABG O2 Saturation 99.2 H 99.7 H 99.6 H ABG Base Excess 2.4 -1.8 -1.0 FiO2 40% 100 60% Sodium Potassium Chloride Carbon Dioxide Anion Gap BUN Creatinine Est GFR ( Amer) Est GFR (Non-Af Amer) Glucose Calcium Magnesium Total Bilirubin AST ALT Alkaline Phosphatase Total Protein Albumin 01/29/18 01/29/18 01/29/18 05:15 05:15 06:00 WBC 8.2 RBC 4.17 Hgb 11.9 L Hct 36.6 MCV 88 MCH 28.6 MCHC 32.6 RDW 14.9 H Plt Count 153 Seg Neutrophils % 85.1 H Lymphocytes % 7.2 L Monocytes % 7.6 Eosinophils % 0.0 Basophils % 0.1 Absolute Neutrophils 7.0 Absolute Lymphocytes 0.6 Absolute Monocytes 0.6 Absolute Eosinophils 0.0 Absolute Basophils 0.0 Carbonic Acid 1.18 HCO3/H2CO3 Ratio 21:1 ABG pH 7.44 ABG pCO2 39.2 ABG pO2 118.4 H ABG HCO3 25.9 ABG O2 Saturation 98.4 H ABG Base Excess 1.7 FiO2 40% Sodium 147.7 H Potassium 3.9 Chloride 113 H Carbon Dioxide 32 H Anion Gap 3 L BUN 21 H Creatinine 0.91 Est GFR ( Amer) > 60 Est GFR (Non-Af Amer) > 60 Glucose 96 Calcium 8.3 L Magnesium 2.3 Total Bilirubin 0.4 AST 33 ALT 49 Alkaline Phosphatase 71 Total Protein 5.1 L Albumin 2.7 L 01/26/18 08:00 Tracheal Aspirate Gram Stain - Final 01/26/18 08:00 Tracheal Aspirate Sputum Culture - Final NORMAL AMRIK 01/26/18 08:00 Catheterized Urine Urine Culture - Final NO GROWTH 2 DAYS 01/25/18 01/26/18 01/26/18 21:27 01:50 01:50 Creatine Kinase < 20 L CK-MB (CK-2) Troponin I 0.536 1.010 01/26/18 01/26/18 01/26/18 01:50 06:30 06:30 Creatine Kinase 67 CK-MB (CK-2) < 0.22 3.75 Troponin I 1.020 Impressions: Chest/Abdomen CTA 01/25/18 00:00 IMPRESSION: 1. No PE. 2. Chronic airspace disease in both lungs, right greater than left. Stable pulmonary nodules. There is increasing density in the right upper lobe probably representing small amount of loculated fluid. No empyema. Chest X-Ray 01/29/18 06:00 IMPRESSION: 1. No significant interval change. Assessment & Plan - Diagnosis (1) Acute and chronic respiratory failure Qualifiers: Respiratory failure complication: hypoxia and hypercapnia Qualified Code(s) : J96.21 - Acute and chronic respiratory failure with hypoxia; J96.22 - Acute and chronic respiratory failure with hypercapnia; J96.22 - Acute and chronic respiratory failure with hypercapnia; J96.22 - Acute and chronic respiratory failure with hypercapnia Is this a current diagnosis for this admission?: Yes Plan: Had to be reintubated last night (January 28) (2) Sarcoidosis Is this a current diagnosis for this admission?: Yes Plan: Continue current management (3) HTN (hypertension) Qualifiers: Hypertension type: essential hypertension Qualified Code(s): I10 - Essential (primary) hypertension Is this a current diagnosis for this admission?: Yes Plan: Will discontinue lisinopril in the event may be causing some breathing problems and place on Norvasc (4) Dementia Qualifiers: Dementia type: Alzheimer's disease Dementia behavioral disturbance: with behavioral disturbance Is this a current diagnosis for this admission?: Yes Plan: Continue with outpatient regimen for dementia (5) Hypothyroidism Qualifiers: Hypothyroidism type: acquired Qualified Code(s): E03.9 - Hypothyroidism, unspecified Is this a current diagnosis for this admission?: Yes Plan: Continue with outpatient regimen (6) Hypotension Qualifiers: Hypotension type: other hypotension type Qualified Code(s): I95.89 - Other hypotension Is this a current diagnosis for this admission?: Yes Plan: Likely relates to the agents used for intubation while in ED. Resolved (7) Hypokalemia Is this a current diagnosis for this admission?: Yes Plan: Replaced (8) Pulmonary hypertension Is this a current diagnosis for this admission?: Yes Plan: Continue Lasix oral (9) Hypernatremia Is this a current diagnosis for this admission?: Yes Plan: To place on D5 water and trend (10) Anemia Qualifiers: Anemia type: unspecified type Qualified Code(s): D64.9 - Anemia, unspecified Is this a current diagnosis for this admission?: Yes Plan: Keep trending - Time Time Spent with patient: 15-24 minutes Medications reviewed and adjusted accordingly: Yes Anticipated discharge: SNF Within: within 72 hours - Inpatient Certification Based on my medical assessment, after consideration of the patient's comorbidities, presenting symptoms, or acuity I expect that the services needed warrant INPATIENT care.: Yes I certify that my determination is in accordance with my understanding of Medicare's requirements for reasonable and necessary INPATIENT services [42 CFR 412.3e].: Yes Medical Necessity: Need Close Monitoring Due to Risk of Patient Decompensation, Need For Continuous Telemetry Monitoring, Need for Nebulizer Therapy and Monitoring of Response
[2018-01-29] MEDS: ALBUTEROL SULFATE 0.083% NEB 2.5 MG/3 ML AMPUL NEB PRN ×2 (11:00→20:30)
[2018-01-29] MEDS ORDERED: BUDESONIDE NEB 0.5 MG/2 ML AMPUL NEB ONE (11:00)
[2018-01-29] MEDS: DONEPEZIL HCL 5 MG TABLET NG SCH (11:06)
[2018-01-29] MEDS: OLANZAPINE INJ/PF 10 MG SDV IM SCH ×2 (11:08→22:39)
[2018-01-29] MEDS: ASPIRIN 325 MG TABLET NG SCH (11:08)
[2018-01-29] MEDS: FUROSEMIDE 40 MG TABLET NG SCH (11:08)
[2018-01-29] MEDS: CHOLECALCIFEROL (D3) 1,000 UNIT TABLET NG SCH (11:09)
[2018-01-29] MEDS: THIAMINE HCL 100 MG TABLET NG SCH (11:10)
[2018-01-29] MEDS: FAMOTIDINE INJ/PF 20 MG/2 ML SDV IV SCH ×2 (11:10→22:37)
[2018-01-29] MEDS: MINERAL OIL/PETROLATUM,WHITE CREAM 114 GM TP SCH ×2 (11:10→18:00)
[2018-01-29] MEDS: CALCIUM CARBONATE 500 MG TABLET NG SCH (11:11)
[2018-01-29] MEDS: MEMANTINE HCL 10 MG TABLET NG SCH ×2 (11:11→18:04)
[2018-01-29] MEDS: METHYLPREDNISOLONE INJ 40 MG/1 ML SDV IV SCH ×2 (11:16→18:00)
[2018-01-29] MEDS ORDERED: TUBERCULIN,PURIF.PROT.DERIV. 5 TU/0.1 ML TEST 1 ML VIAL ID ONE (16:45)
[2018-01-29] MEDS: BUDESONIDE NEB 0.5 MG/2 ML AMPUL NEB SCH (20:30)
[2018-01-29] MEDS: MIRTAZAPINE 15 MG TABLET NG SCH (22:38)
[2018-01-30] MEDS: METHYLPREDNISOLONE INJ 40 MG/1 ML SDV IV SCH ×5 (00:56→23:22)
[2018-01-30] MEDS: PIPERACILLIN SODIUM/TAZOBACTAM 3.375 GM in NORMAL SALINE 100 ML IV SCH (03:46)
[2018-01-30] MEDS: LEVOTHYROXINE SODIUM 0.1 MG TABLET NG SCH (05:37)
[2018-01-30] MEDS: LEVOTHYROXINE SODIUM 0.025 MG TABLET NG SCH (05:37)
[2018-01-30] MEDS: DEXTROSE 5%-WATER 1000 ML 1,000 ML IV PRN ×2 (05:39→11:30)
[2018-01-30] MEDS: HEPARIN SOD (PORCINE) 5,000 UNIT/ML 1 ML SYRINGE SUBCUT SCH ×3 (05:39→22:16)
[2018-01-30 06:15] LABS: ABSOLUTE LYMPHOCYTES (AUTO) 0.7 10^3/uL (0.5-4.7); ABSOLUTE MONOCYTES (AUTO) 0.4 10^3/uL (0.1-1.4); ABSOLUTE NEUT (AUTO) 5.7 10^3/uL (1.7-8.2); ARTERIAL BLOOD BASE EXCESS 5.2 mmol/L; ARTERIAL BLOOD O2 SATURATION 98.9 % (94-98); ARTERIAL BLOOD PCO2 39.9 mmHg (35-45); ARTERIAL BLOOD PH 7.48 (7.35-7.45); ARTERIAL BLOOD PO2 139.8 mmHg (80-100); ARTERIAL BLOOD TOTAL CO2 30.3 mmol/L (21-25); BASOPHILS % (AUTO) 0.1 % (0-2); HEMATOCRIT 36.2 % (36.0-47.0); MEAN CORPUSCULAR HEMOGLOBIN 28.5 pg (27.0-33.4); MEAN CORPUSCULAR HGB CONC 33.1 g/dL (32.0-36.0); MEAN CORPUSCULAR VOLUME 86 fl (80-97); MONOCYTES % (AUTO) 5.7 % (3-13); PLATELET COUNT 142 10^3/uL (150-450); RED CELL DISTRIBUTION WIDTH 14.5 % (11.5-14.0); SEGMENTED NEUTROPHILS % (AUTO) 84.2 % (42-78); TOTAL CELLS COUNTED % (AUTO) 100 %; WHITE BLOOD COUNT 6.7 10^3/uL (4.0-10.5)
[2018-01-30 06:17] LABS: ARTERIAL BLOOD FIO2 40%
[2018-01-30 06:28] LABS: BLOOD UREA NITROGEN 19 mg/dL (7-20); CALCIUM 8.8 mg/dL (8.4-10.2); CHLORIDE 101 mmol/L (98-107); GLUCOSE 169 mg/dL (75-110); POTASSIUM 3.3 mmol/L (3.6-5.0)
[2018-01-30 06:34] LABS: CARBON DIOXIDE 36 mmol/L (22-30); SODIUM 139.2 mmol/L (137-145)
[2018-01-30 06:41] LABS: ANION GAP 2 (5-19)
--- NOTE | 2018-01-30 07:15 | RADIOLOGY REPORT (SQ) ---
EXAM DESCRIPTION: CHEST SINGLE VIEW CLINICAL HISTORY: pna/resp failure COMPARISON: 01/29/2018 FINDINGS: Single frontal view of the chest. Right subclavian central venous catheter with tip in SVC. Endotracheal tube with tip 4 cm above the veronique. NG tube with tip below the diaphragm. Tortuosity of the thoracic aorta. Heart is not enlarged. Unchanged right perihilar and linear right midlung opacities. No acute osseous abnormalities. No pneumothorax or large effusion. Upper abdominal soft tissues are unremarkable. IMPRESSION: 1. Stable appearance of the chest. Electronically signed by: Gray Brown 01/30/2018 6:14 AM
[2018-01-30] MEDS: POTASSIUM CHLORIDE 20 MEQ/15 ML UDCUP PO SCH ×4 (08:08→20:21)
[2018-01-30] MEDS: METOPROLOL TARTRATE PF/INJ 5 MG/5 ML SDV IV PRN ×2 (08:08→14:22)
[2018-01-30] MEDS: BUDESONIDE NEB 0.5 MG/2 ML AMPUL NEB SCH ×2 (08:49→20:36)
[2018-01-30] MEDS: ALBUTEROL SULFATE 0.083% NEB 2.5 MG/3 ML AMPUL NEB PRN (08:49)
[2018-01-30] MEDS: FAMOTIDINE INJ/PF 20 MG/2 ML SDV IV SCH ×2 (09:23→22:30)
[2018-01-30] MEDS: ASPIRIN 325 MG TABLET NG SCH (09:23)
[2018-01-30] MEDS: CHOLECALCIFEROL (D3) 1,000 UNIT TABLET NG SCH (09:23)
[2018-01-30] MEDS: FERROUS SULFATE LIQUID 300 MG/5 ML UDC NG SCH (09:24)
[2018-01-30] MEDS: AMLODIPINE BESYLATE 5 MG TABLET NG SCH (09:27)
[2018-01-30] MEDS: THIAMINE HCL 100 MG TABLET NG SCH (09:27)
[2018-01-30] MEDS: FUROSEMIDE 40 MG TABLET NG SCH (09:27)
[2018-01-30] MEDS: DONEPEZIL HCL 5 MG TABLET NG SCH (09:27)
[2018-01-30] MEDS: MINERAL OIL/PETROLATUM,WHITE CREAM 114 GM TP SCH ×2 (09:28→17:14)
[2018-01-30] MEDS: OLANZAPINE INJ/PF 10 MG SDV IM SCH ×2 (09:29→22:30)
[2018-01-30] MEDS: CALCIUM CARBONATE 500 MG TABLET NG SCH (09:30)
[2018-01-30] MEDS: MEMANTINE HCL 10 MG TABLET NG SCH ×2 (09:30→17:13)
[2018-01-30] MEDS ORDERED: LEVALBUTEROL HCL NEB 0.63 MG/3 ML AMPUL NEB PRN (10:16)
[2018-01-30] MEDS: MIDAZOLAM HCL 50 MG/100 ML RTUINJ IV PRN ×2 (11:31→20:47)
--- NOTE | 2018-01-30 13:49 | PDOC PROGRESS REPORT ---
Subjective Progress Note for:: 01/30/18 Subjective:: Unable to obtain due to mental status and sedation. Patient required reintubation on January 28 because became acutely short of breath. Patient was transferred to isolation room since it appears that on her most recent hospitalization there was a concern about start tuberculosis. Is my understanding that Dr. Ragland order PPD and AFB cultures. Review of systems Unable to obtain due to mental status and sedation All laboratories and significant diagnostics have been reviewed Reason For Visit: ACUTE RESPIRATORY FAILURE Physical Exam Vital Signs: Temp Pulse Resp BP Pulse Ox 97.7 F 66 12 171/88 H 100 01/30/18 06:04 01/29/18 22:00 01/30/18 06:04 01/30/18 05:24 01/30/18 06:04 Intake & Output 01/29/18 01/30/18 01/31/18 06:59 06:59 06:59 Intake Total 2864 2947 Output Total 4295 3505 Balance -1431 -558 Weight 74.7 kg 73.9 kg General appearance: PRESENT: other - sedated Head exam: PRESENT: atraumatic, normocephalic Eye exam: PRESENT: conjunctiva pink Ear exam: PRESENT: normal external ear exam Neck exam: ABSENT: JVD, lymphadenopathy, tenderness Respiratory exam: PRESENT: crackles Cardiovascular exam: PRESENT: RRR. ABSENT: diastolic murmur, systolic murmur GI/Abdominal exam: PRESENT: normal bowel sounds, soft Extremities exam: PRESENT: other - moving her legs. ABSENT: pedal edema Musculoskeletal exam: ABSENT: ambulatory Neurological exam: PRESENT: other - Sedated Results Laboratory Results: 01/30/18 06:00 01/30/18 06:00 01/30/18 01/30/18 01/30/18 06:00 06:00 06:00 WBC 6.7 RBC 4.20 Hgb 12.0 Hct 36.2 MCV 86 MCH 28.5 MCHC 33.1 RDW 14.5 H Plt Count 142 L Seg Neutrophils % 84.2 H Lymphocytes % 10.0 L Monocytes % 5.7 Eosinophils % 0.0 Basophils % 0.1 Absolute Neutrophils 5.7 Absolute Lymphocytes 0.7 Absolute Monocytes 0.4 Absolute Eosinophils 0.0 Absolute Basophils 0.0 Carbonic Acid 1.20 HCO3/H2CO3 Ratio 24:1 ABG pH 7.48 H ABG pCO2 39.9 ABG pO2 139.8 H ABG HCO3 29.0 H ABG O2 Saturation 98.9 H ABG Base Excess 5.2 FiO2 40% Sodium 139.2 Potassium 3.3 L Chloride 101 Carbon Dioxide 36 H Anion Gap 2 L BUN 19 Creatinine 0.74 Est GFR ( Amer) > 60 Est GFR (Non-Af Amer) > 60 Glucose 169 H Calcium 8.8 Magnesium 2.2 01/25/18 01/26/18 01/26/18 21:27 01:50 01:50 Creatine Kinase < 20 L CK-MB (CK-2) Troponin I 0.536 1.010 01/26/18 01/26/18 01/26/18 01:50 06:30 06:30 Creatine Kinase 67 CK-MB (CK-2) < 0.22 3.75 Troponin I 1.020 Impressions: Chest/Abdomen CTA 01/25/18 00:00 IMPRESSION: 1. No PE. 2. Chronic airspace disease in both lungs, right greater than left. Stable pulmonary nodules. There is increasing density in the right upper lobe probably representing small amount of loculated fluid. No empyema. Chest X-Ray 01/30/18 06:00 IMPRESSION: 1. Stable appearance of the chest. Assessment & Plan - Diagnosis (1) Acute and chronic respiratory failure Qualifiers: Respiratory failure complication: hypoxia and hypercapnia Qualified Code(s) : J96.21 - Acute and chronic respiratory failure with hypoxia; J96.22 - Acute and chronic respiratory failure with hypercapnia; J96.22 - Acute and chronic respiratory failure with hypercapnia; J96.22 - Acute and chronic respiratory failure with hypercapnia Is this a current diagnosis for this admission?: Yes Plan: Had to be reintubated on (January 28) (2) Sarcoidosis Is this a current diagnosis for this admission?: Yes Plan: Continue current management. Patient currently on isolation due to concerns of tuberculosis. Will follow up AFB cultures (3) HTN (hypertension) Qualifiers: Hypertension type: essential hypertension Qualified Code(s): I10 - Essential (primary) hypertension Is this a current diagnosis for this admission?: Yes Plan: Continue Norvasc (4) Dementia Qualifiers: Dementia type: Alzheimer's disease Dementia behavioral disturbance: with behavioral disturbance Is this a current diagnosis for this admission?: Yes Plan: Continue with outpatient regimen for dementia (5) Hypothyroidism Qualifiers: Hypothyroidism type: acquired Qualified Code(s): E03.9 - Hypothyroidism, unspecified Is this a current diagnosis for this admission?: Yes Plan: Continue with outpatient regimen (6) Hypotension Qualifiers: Hypotension type: other hypotension type Qualified Code(s): I95.89 - Other hypotension Is this a current diagnosis for this admission?: Yes Plan: Likely relates to the agents used for intubation while in ED. Resolved (7) Hypokalemia Is this a current diagnosis for this admission?: Yes Plan: Continue replacement GI tract trend (8) Pulmonary hypertension Is this a current diagnosis for this admission?: Yes Plan: Continue Lasix oral as outpatient (9) Hypernatremia Is this a current diagnosis for this admission?: Yes Plan: Resolved (10) Anemia Qualifiers: Anemia type: unspecified type Qualified Code(s): D64.9 - Anemia, unspecified Is this a current diagnosis for this admission?: Yes Plan: Stable - Time Time Spent with patient: 15-24 minutes Medications reviewed and adjusted accordingly: Yes Anticipated discharge: SNF Within: within 72 hours - Inpatient Certification Based on my medical assessment, after consideration of the patient's comorbidities, presenting symptoms, or acuity I expect that the services needed warrant INPATIENT care.: Yes I certify that my determination is in accordance with my understanding of Medicare's requirements for reasonable and necessary INPATIENT services [42 CFR 412.3e].: Yes Medical Necessity: Need Close Monitoring Due to Risk of Patient Decompensation, Need For IV Fluids, Need for IV Antibiotics
[2018-01-30] MEDS: IPRATROPIUM/ALBUTEROL 0.5-2.5 MG/3 ML AMPUL NEB SCH ×2 (14:36→20:36)
--- NOTE | 2018-01-30 22:23 | EKG REPORT ---
SEVERITY:- ABNORMAL ECG - SINUS RHYTHM PROBABLE LEFT ATRIAL ABNORMALITY BORDERLINE ST ELEVATION, ANTEROLATERAL LEADS BORDERLINE PROLONGED QT INTERVAL HYPERACUTE T WAVE VS HYPERKALEMIA : Confirmed by: Kristyn Alvarez 30-Jan-2018 22:23:09
[2018-01-30] MEDS: MIRTAZAPINE 15 MG TABLET NG SCH (22:30)
[2018-01-31] MEDS: IPRATROPIUM/ALBUTEROL 0.5-2.5 MG/3 ML AMPUL NEB SCH ×4 (02:21→20:31)
[2018-01-31] MEDS: MIDAZOLAM HCL 50 MG/100 ML RTUINJ IV PRN (02:26)
[2018-01-31] MEDS: HEPARIN SOD (PORCINE) 5,000 UNIT/ML 1 ML SYRINGE SUBCUT SCH ×3 (05:20→21:02)
[2018-01-31] MEDS: LEVOTHYROXINE SODIUM 0.1 MG TABLET NG SCH (05:20)
[2018-01-31] MEDS: METHYLPREDNISOLONE INJ 40 MG/1 ML SDV IV SCH ×3 (05:20→17:33)
[2018-01-31] MEDS: NORMAL SALINE INJ/PF 0.9% 10 ML SDV IV PRN (05:20)
[2018-01-31] MEDS: LEVOTHYROXINE SODIUM 0.025 MG TABLET NG SCH (05:20)
[2018-01-31 06:01] LABS: ARTERIAL BLOOD BASE EXCESS 5.2 mmol/L; ARTERIAL BLOOD H2CO3 1.23 mmol/L (1.05-1.35); ARTERIAL BLOOD HCO3 29.2 mmol/L (20-26); ARTERIAL BLOOD O2 SATURATION 98.7 % (94-98); ARTERIAL BLOOD PCO2 40.7 mmHg (35-45); ARTERIAL BLOOD PH 7.47 (7.35-7.45); ARTERIAL BLOOD PO2 128.9 mmHg (80-100); ARTERIAL BLOOD TOTAL CO2 30.5 mmol/L (21-25)
[2018-01-31 06:07] LABS: ARTERIAL BLOOD FIO2 40%
[2018-01-31 06:12] LABS: HEMATOCRIT 35.2 % (36.0-47.0); HEMOGLOBIN 12.1 g/dL (12.0-15.5); MEAN CORPUSCULAR HEMOGLOBIN 29.3 pg (27.0-33.4); MEAN CORPUSCULAR HGB CONC 34.3 g/dL (32.0-36.0); MEAN CORPUSCULAR VOLUME 86 fl (80-97); PLATELET COUNT 165 10^3/uL (150-450); RED BLOOD COUNT 4.11 10^6/uL (3.72-5.28); RED CELL DISTRIBUTION WIDTH 14.3 % (11.5-14.0); WHITE BLOOD COUNT 10.9 10^3/uL (4.0-10.5)
[2018-01-31 06:19] LABS: ALANINE AMINOTRANSFERASE 65 U/L (9-52); ALBUMIN 2.8 g/dL (3.5-5.0); ALKALINE PHOSPHATASE 73 U/L (38-126); ASPARTATE AMINO TRANSFERASE 38 U/L (14-36); BILIRUBIN,DIRECT 0.3 mg/dL (0.0-0.4); BILIRUBIN,TOTAL 0.3 mg/dL (0.2-1.3); BLOOD UREA NITROGEN 20 mg/dL (7-20); CALCIUM 9.3 mg/dL (8.4-10.2); CARBON DIOXIDE 36 mmol/L (22-30); GLUCOSE 162 mg/dL (75-110); TOTAL PROTEIN 5.1 g/dL (6.3-8.2)
[2018-01-31 06:24] LABS: CHLORIDE 101 mmol/L (98-107)
[2018-01-31 06:27] LABS: ANION GAP 2 (5-19); POTASSIUM 4.6 mmol/L (3.6-5.0)
[2018-01-31 07:38] LABS: ABSOLUTE LYMPHOCYTES# (MANUAL) 0.7 10^3/uL (0.5-4.7); ABSOLUTE MONOCYTES # (MANUAL) 0.1 10^3/uL (0.1-1.4); ABSOLUTE NEUTROPHILS# (MANUAL) 10.1 10^3/uL (1.7-8.2); BAND NEUTROPHILS % (MANUAL) 2 % (3-5); BASOPHILS % (MANUAL) 0 % (0-2); EOSINOPHILS % (MANUAL) 0 % (0-6); LYMPHOCYTES % (MANUAL) 6 % (13-45); MONOCYTES % (MANUAL) 1 % (3-13); SEGMENTED NEUTROPHILS % (MAN) 91 % (42-78); TOTAL CELLS COUNTED 100
[2018-01-31 07:39] LABS: ANISOCYTOSIS SLIGHT; OVALOCYTES 1+; PLATELET COMMENT ADEQUATE; POIKILOCYTOSIS SLIGHT; POLYCHROMASIA 1+; TOXIC GRANULATION 1+
--- NOTE | 2018-01-31 08:28 | RADIOLOGY REPORT (SQ) ---
EXAM DESCRIPTION: CHEST SINGLE VIEW COMPLETED DATE/TIME: 01/31/2018 6:26 am REASON FOR STUDY: pna/resp failure COMPARISON: CTA chest 01/25/2018 Chest films 01/26/2018, 01/29/2018, 01/30/2018 EXAM PARAMETERS: NUMBER OF VIEWS: One view. TECHNIQUE: Single frontal radiographic view of the chest acquired. RADIATION DOSE: NA LIMITATIONS: None. FINDINGS: LUNGS AND PLEURA: Intra fluid overload pattern compared to previous studies. Currently, t here is minimal increased interstitial markings in the right mid and lower lung less prominent than o n previous studies. Remainder of the lungs are hyperinflated and hyperlucent from obstructive disease with stable atelect asis or scarring in the bilateral upper lobes. No gross pneumothorax. MEDIASTINUM AND HILAR STRUCTURES: Persistent fullness in the right hilum is unchanged HEART AND VASCULAR STRUCTURES: Heart normal in size. Normal vasculature. BONES: Osteopenic, no acute change HARDWARE: Endotracheal tube tip 3 cm above the veronique. Right subclavian triple lumen catheter tip in the superior vena cava. Nasogastric tube tip and side port in the stomach. OTHER: No other significant finding. IMPRESSION: Improved fluid overload or congestive failure pattern compared to previous studies. Tubes and lines in good positioning TECHNICAL DOCUMENTATION: JOB ID: [id number] [employer]- All Rights Reserved Reading location - IP/workstation name: [email or web address]
[2018-01-31] MEDS: BUDESONIDE NEB 0.5 MG/2 ML AMPUL NEB SCH ×2 (08:50→20:31)
[2018-01-31] MEDS: AMLODIPINE BESYLATE 5 MG TABLET NG SCH (10:21)
[2018-01-31] MEDS: ASPIRIN 325 MG TABLET NG SCH (10:21)
[2018-01-31] MEDS: CHOLECALCIFEROL (D3) 1,000 UNIT TABLET NG SCH (10:21)
[2018-01-31] MEDS: THIAMINE HCL 100 MG TABLET NG SCH (10:22)
[2018-01-31] MEDS: FERROUS SULFATE LIQUID 300 MG/5 ML UDC NG SCH (10:23)
[2018-01-31] MEDS: FUROSEMIDE 40 MG TABLET NG SCH (10:23)
[2018-01-31] MEDS: OLANZAPINE INJ/PF 10 MG SDV IM SCH ×2 (10:23→21:02)
[2018-01-31] MEDS: FAMOTIDINE INJ/PF 20 MG/2 ML SDV IV SCH ×2 (10:25→21:02)
[2018-01-31] MEDS: MINERAL OIL/PETROLATUM,WHITE CREAM 114 GM TP SCH ×2 (10:25→17:33)
[2018-01-31] MEDS: MEMANTINE HCL 10 MG TABLET NG SCH ×2 (10:27→20:35)
[2018-01-31] MEDS: DONEPEZIL HCL 5 MG TABLET NG SCH (10:29)
--- NOTE | 2018-01-31 11:07 | PDOC PROGRESS REPORT ---
Subjective Progress Note for:: 01/31/18 Subjective:: Unable to obtain due to mental status and sedation. Review of systems Unable to obtain due to mental status and sedation All laboratories and significant diagnostics had been reviewed Reason For Visit: ACUTE RESPIRATORY FAILURE Physical Exam Vital Signs: Temp Pulse Resp BP Pulse Ox 98.4 F 64 12 114/61 99 01/31/18 06:00 01/31/18 05:46 01/31/18 06:00 01/31/18 05:46 01/31/18 06:00 Intake & Output 01/30/18 01/31/18 02/01/18 06:59 06:59 06:59 Intake Total 2947 2615 Output Total 3505 2655 Balance -558 -870 Weight 73.9 kg 72.1 kg General appearance: PRESENT: other Head exam: PRESENT: atraumatic - sedated, normocephalic Eye exam: PRESENT: conjunctiva pink, EOMI, PERRLA Mouth exam: PRESENT: moist Neck exam: ABSENT: JVD, lymphadenopathy, tenderness Respiratory exam: PRESENT: other - Essentially clear to auscultation with scattered crackles Cardiovascular exam: PRESENT: RRR. ABSENT: diastolic murmur, systolic murmur Vascular exam: PRESENT: normal capillary refill GI/Abdominal exam: PRESENT: normal bowel sounds, soft. ABSENT: tenderness Extremities exam: PRESENT: other - sedated Neurological exam: PRESENT: other - sedated Skin exam: PRESENT: intact, normal color Results Laboratory Results: 01/31/18 05:35 01/31/18 01/31/18 01/31/18 05:35 05:35 05:35 Seg Neutrophils % Not Reportable Lymphocytes % Not Reportable Monocytes % Not Reportable Eosinophils % Not Reportable Basophils % Not Reportable Absolute Neutrophils Not Reportable Absolute Lymphocytes Not Reportable Absolute Monocytes Not Reportable Absolute Eosinophils Not Reportable Absolute Basophils Not Reportable Carbonic Acid 1.23 HCO3/H2CO3 Ratio 23:1 ABG pH 7.47 H ABG pCO2 40.7 ABG pO2 128.9 H ABG HCO3 29.2 H ABG O2 Saturation 98.7 H ABG Base Excess 5.2 FiO2 40% Sodium 139.0 Potassium 4.6 D Chloride 101 Carbon Dioxide 36 H Anion Gap 2 L BUN 20 Creatinine 0.84 Est GFR ( Amer) > 60 Est GFR (Non-Af Amer) > 60 Glucose 162 H Calcium 9.3 Magnesium 2.3 Total Bilirubin 0.3 AST 38 H ALT 65 H Alkaline Phosphatase 73 Total Protein 5.1 L Albumin 2.8 L 01/25/18 01/26/18 01/26/18 21:27 01:50 01:50 Creatine Kinase < 20 L CK-MB (CK-2) Troponin I 0.536 1.010 01/26/18 01/26/18 01/26/18 01:50 06:30 06:30 Creatine Kinase 67 CK-MB (CK-2) < 0.22 3.75 Troponin I 1.020 01/30/18 01/30/18 01/30/18 08:15 14:30 20:10 Creatine Kinase CK-MB (CK-2) Troponin I 0.052 0.044 0.051 Impressions: Chest/Abdomen CTA 01/25/18 00:00 IMPRESSION: 1. No PE. 2. Chronic airspace disease in both lungs, right greater than left. Stable pulmonary nodules. There is increasing density in the right upper lobe probably representing small amount of loculated fluid. No empyema. Assessment & Plan - Diagnosis (1) Acute and chronic respiratory failure Qualifiers: Respiratory failure complication: hypoxia and hypercapnia Qualified Code(s) : J96.21 - Acute and chronic respiratory failure with hypoxia; J96.22 - Acute and chronic respiratory failure with hypercapnia; J96.22 - Acute and chronic respiratory failure with hypercapnia; J96.22 - Acute and chronic respiratory failure with hypercapnia Is this a current diagnosis for this admission?: Yes Plan: Had to be reintubated on (January 28). Trials to extubate on the way (2) Sarcoidosis Is this a current diagnosis for this admission?: Yes Plan: Continue current management. Patient currently on isolation due to concerns of tuberculosis. Will follow up AFB cultures (3) HTN (hypertension) Qualifiers: Hypertension type: essential hypertension Qualified Code(s): I10 - Essential (primary) hypertension Is this a current diagnosis for this admission?: Yes Plan: Continue Norvasc (4) Dementia Qualifiers: Dementia type: Alzheimer's disease Dementia behavioral disturbance: with behavioral disturbance Is this a current diagnosis for this admission?: Yes Plan: Continue with outpatient regimen for dementia (5) Hypothyroidism Qualifiers: Hypothyroidism type: acquired Qualified Code(s): E03.9 - Hypothyroidism, unspecified Is this a current diagnosis for this admission?: Yes Plan: Continue with outpatient regimen (6) Hypotension Qualifiers: Hypotension type: other hypotension type Qualified Code(s): I95.89 - Other hypotension Is this a current diagnosis for this admission?: Yes Plan: Likely relates to the agents used for intubation while in ED. Resolved (7) Hypokalemia Is this a current diagnosis for this admission?: Yes Plan: Replaced. To stop supplementation and trend (8) Pulmonary hypertension Is this a current diagnosis for this admission?: Yes Plan: Continue Lasix oral as outpatient (9) Hypernatremia Is this a current diagnosis for this admission?: Yes Plan: Resolved (10) Anemia Qualifiers: Anemia type: unspecified type Qualified Code(s): D64.9 - Anemia, unspecified Is this a current diagnosis for this admission?: Yes Plan: Stable (11) Transaminitis Is this a current diagnosis for this admission?: Yes Plan: Order sonogram - Time Time Spent with patient: 15-24 minutes Medications reviewed and adjusted accordingly: Yes Anticipated discharge: SNF Within: within 48 hours - Inpatient Certification Based on my medical assessment, after consideration of the patient's comorbidities, presenting symptoms, or acuity I expect that the services needed warrant INPATIENT care.: Yes I certify that my determination is in accordance with my understanding of Medicare's requirements for reasonable and necessary INPATIENT services [42 CFR 412.3e].: Yes Medical Necessity: Need Close Monitoring Due to Risk of Patient Decompensation, Need For Continuous Telemetry Monitoring
[2018-01-31] MEDS: CALCIUM CARBONATE 500 MG TABLET NG SCH (12:10)
[2018-01-31] MEDS: MIRTAZAPINE 15 MG TABLET NG SCH (20:35)
[2018-01-31] MEDS: METOPROLOL TARTRATE PF/INJ 5 MG/5 ML SDV IV PRN (20:44)
[2018-02-01] MEDS: METHYLPREDNISOLONE INJ 40 MG/1 ML SDV IV SCH ×2 (00:28→05:01)
[2018-02-01] MEDS: FENTANYL CITRATE INJ/PF 100 MCG/2 ML AMPUL IV PRN (00:52)
[2018-02-01] MEDS: IPRATROPIUM/ALBUTEROL 0.5-2.5 MG/3 ML AMPUL NEB SCH ×2 (02:23→08:10)
[2018-02-01] MEDS: NORMAL SALINE INJ/PF 0.9% 10 ML SDV IV PRN (05:01)
[2018-02-01] MEDS: HEPARIN SOD (PORCINE) 5,000 UNIT/ML 1 ML SYRINGE SUBCUT SCH (05:02)
[2018-02-01] MEDS: LEVOTHYROXINE SODIUM 0.025 MG TABLET NG SCH (05:09)
[2018-02-01] MEDS: LEVOTHYROXINE SODIUM 0.1 MG TABLET NG SCH (05:09)
[2018-02-01 05:20] LABS: ARTERIAL BLOOD BASE EXCESS 9.7 mmol/L; ARTERIAL BLOOD H2CO3 1.38 mmol/L (1.05-1.35); ARTERIAL BLOOD HCO3 34.3 mmol/L (20-26); ARTERIAL BLOOD PCO2 45.8 mmHg (35-45); ARTERIAL BLOOD PH 7.49 (7.35-7.45); ARTERIAL BLOOD PO2 100.8 mmHg (80-100); ARTERIAL BLOOD TOTAL CO2 35.7 mmol/L (21-25)
[2018-02-01 05:22] LABS: HEMATOCRIT 36.2 % (36.0-47.0); HEMOGLOBIN 11.8 g/dL (12.0-15.5); MEAN CORPUSCULAR HEMOGLOBIN 28.1 pg (27.0-33.4); MEAN CORPUSCULAR HGB CONC 32.7 g/dL (32.0-36.0); MEAN CORPUSCULAR VOLUME 86 fl (80-97); RED BLOOD COUNT 4.21 10^6/uL (3.72-5.28); RED CELL DISTRIBUTION WIDTH 14.4 % (11.5-14.0); WHITE BLOOD COUNT 14.6 10^3/uL (4.0-10.5)
[2018-02-01 05:23] LABS: ARTERIAL BLOOD FIO2 30%
[2018-02-01 05:38] LABS: BLOOD UREA NITROGEN 29 mg/dL (7-20); CALCIUM 9.4 mg/dL (8.4-10.2); GLUCOSE 108 mg/dL (75-110); PHOSPHORUS 5.3 mg/dL (2.5-4.5); POTASSIUM 4.2 mmol/L (3.6-5.0)
[2018-02-01 05:49] LABS: ANION GAP 3 (5-19); CARBON DIOXIDE 38 mmol/L (22-30); CHLORIDE 98 mmol/L (98-107)
[2018-02-01 05:50] LABS: SODIUM 138.9 mmol/L (137-145)
[2018-02-01 06:05] LABS: ABSOLUTE LYMPHOCYTES# (MANUAL) 0.7 10^3/uL (0.5-4.7); ABSOLUTE NEUTROPHILS# (MANUAL) 12.8 10^3/uL (1.7-8.2); BASOPHILS % (MANUAL) 0 % (0-2); EOSINOPHILS % (MANUAL) 0 % (0-6); LYMPHOCYTES % (MANUAL) 1 % (13-45); MONOCYTES % (MANUAL) 7 % (3-13); NUCLEATED RED BLOOD CELLS 2 /100 WBC (0); SEGMENTED NEUTROPHILS % (MAN) 88 % (42-78); TOTAL CELLS COUNTED 100
[2018-02-01 06:06] LABS: ANISOCYTOSIS SLIGHT; HYPOCHROMASIA SLIGHT; PLATELET CLUMPS PRESENT; PLATELET COMMENT ADEQUATE
[2018-02-01 06:07] LABS: PLATELET COUNT 183 10^3/uL (150-450)
--- NOTE | 2018-02-01 06:33 | RADIOLOGY REPORT (SQ) ---
EXAM DESCRIPTION: CHEST SINGLE VIEW CLINICAL HISTORY: pna COMPARISON: 01/31/2018 FINDINGS: Single frontal view of the chest. Right subclavian central venous catheter with tip in SVC. Interval removal of endotracheal tube and NG tube. Tortuosity of the thoracic aorta. Heart is not enlarged. Linear opacities in the right midlung are stable. Improved aeration of the right lower lung base. Bilateral interstitial opacities suggest obstructive lung disease. No new osseous abnormalities. No pneumothorax or large effusion. Upper abdominal soft tissues are unremarkable. IMPRESSION: 1. Interval removal of endotracheal tube and NG tube with improved aeration of the right lung. Electronically signed by: Gray Brown 02/01/2018 5:32 AM CDT
--- NOTE | 2018-02-01 07:19 | RADIOLOGY REPORT (SQ) ---
EXAM DESCRIPTION: U/S ABDOMEN LIMITED W/O DOP CLINICAL HISTORY: transaminitis COMPARISON: None. TECHNIQUE: Real-time sonographic images of the right upper abdomen were obtained using a curved multi hertz transducer. FINDINGS: Pancreas: The visualized portions of the pancreas are unremarkable. Vascular: The visualized portions of the aorta and IVC are unremarkable. Liver: The liver has normal contour and echogenicity. Hepatopedal flow in the portal vein. The common bile duct measures 0.7 cm. Gallbladder: Multiple echogenic structures. Gallbladder wall thickening. No definite pericholecystic fluid identified. Right Kidney: The right kidney measures 9.7 cm in length. No hydronephrosis, solid renal mass, or shadowing calculi. IMPRESSION: 1. Cholelithiasis with gallbladder wall thickening.
[2018-02-01] MEDS ORDERED: FUROSEMIDE 40 MG TABLET NG SCH (07:28)
[2018-02-01] MEDS ORDERED: SUCCINYLCHOLINE CHLORIDE INJ 200 MG/10 ML VIAL ONE (08:00)
[2018-02-01] MEDS: BUDESONIDE NEB 0.5 MG/2 ML AMPUL NEB SCH (08:10)
[2018-02-01] MEDS ORDERED: HYDRALAZINE HCL INJ/PF 20 MG/1 ML SDV IV PRN (08:35)
[2018-02-01] MEDS ORDERED: PROPOFOL 100 ML IV ONE (10:10)
[2018-02-01 10:24] LABS: ARTERIAL BLOOD BASE EXCESS 0.3 mmol/L; ARTERIAL BLOOD HCO3 31.2 mmol/L (20-26); ARTERIAL BLOOD O2 SATURATION 98.7 % (94-98); ARTERIAL BLOOD PO2 170.5 mmHg (80-100); ARTERIAL BLOOD TOTAL CO2 33.8 mmol/L (21-25)
[2018-02-01] MEDS ORDERED: PROPOFOL 100 ML IV PRN (10:28)
[2018-02-01 10:30] LABS: ARTERIAL BLOOD FIO2 100%
[2018-02-01] MEDS ORDERED: PROPOFOL INJ 200 MG/20 ML VIAL IV ONE (10:30)
[2018-02-01 10:31] LABS: ARTERIAL BLOOD PCO2 82.9 mmHg (35-45); ARTERIAL BLOOD PH 7.19 (7.35-7.45)
[2018-02-01] MEDS ORDERED: LEVETIRACETAM INJ/PF 500 MG/5 ML SDV IV ONE (10:45)
--- NOTE | 2018-02-01 11:09 | RADIOLOGY REPORT (SQ) ---
EXAM DESCRIPTION: CHEST SINGLE VIEW COMPLETED DATE/TIME: 02/01/2018 10:44 am REASON FOR STUDY: ET TUBE PLACEMENT COMPARISON: 02/01/2018 0720 hours EXAM PARAMETERS: NUMBER OF VIEWS: One view. TECHNIQUE: Single frontal radiographic view of the chest acquired. RADIATION DOSE: NA LIMITATIONS: None. FINDINGS: LUNGS AND PLEURA: Worsening right perihilar opacities. Marked COPD. MEDIASTINUM AND HILAR STRUCTURES: No masses. Contour normal. HEART AND VASCULAR STRUCTURES: Heart normal in size. Normal vasculature. BONES: No acute findings. HARDWARE: ETT in expected location. Nasogastric tube tip in the stomach. Venous access catheter unc hanged. OTHER: No other significant finding. IMPRESSION: Support devices in expected locations. Increasing perihilar opacity on the right since exam earlier the same day. Severe COPD. TECHNICAL DOCUMENTATION: JOB ID: [id number] [employer]- All Rights Reserved Reading location - IP/workstation name: [email or web address]
[2018-02-01] MEDS: CHOLECALCIFEROL (D3) 1,000 UNIT TABLET NG SCH (11:19)
[2018-02-01] MEDS: DONEPEZIL HCL 5 MG TABLET NG SCH (11:20)
[2018-02-01] MEDS: AMLODIPINE BESYLATE 5 MG TABLET NG SCH (11:21)
[2018-02-01] MEDS: THIAMINE HCL 100 MG TABLET NG SCH (11:26)
[2018-02-01] MEDS: MEMANTINE HCL 10 MG TABLET NG SCH (11:27)
[2018-02-01] MEDS: CALCIUM CARBONATE 500 MG TABLET NG SCH (11:27)
[2018-02-01] MEDS: FERROUS SULFATE LIQUID 300 MG/5 ML UDC NG SCH (11:28)
[2018-02-01] MEDS: OLANZAPINE INJ/PF 10 MG SDV IM SCH (11:28)
[2018-02-01] MEDS: FAMOTIDINE INJ/PF 20 MG/2 ML SDV IV SCH (11:30)
--- NOTE | 2018-02-01 11:32 | PDOC TRANSFER SUMMARY ---
General Admission Date/PCP: 01/25/18 19:18 Admission Date: 01/25/18 Transfer Date: 02/01/18 Accepting Facility: [facility] Resuscitation Status: Full Code - Transfer Diagnosis (1) Acute and chronic respiratory failure Is this a current diagnosis for this admission?: Yes (2) Sarcoidosis Is this a current diagnosis for this admission?: Yes (3) HTN (hypertension) Is this a current diagnosis for this admission?: Yes (4) Dementia Is this a current diagnosis for this admission?: Yes (5) Hypothyroidism Is this a current diagnosis for this admission?: Yes (6) Hypotension Is this a current diagnosis for this admission?: Yes (7) Hypokalemia Is this a current diagnosis for this admission?: Yes (8) Pulmonary hypertension Is this a current diagnosis for this admission?: Yes (9) Hypernatremia Is this a current diagnosis for this admission?: Yes (10) Anemia Is this a current diagnosis for this admission?: Yes (11) Transaminitis Is this a current diagnosis for this admission?: Yes (12) Seizure disorder Is this a current diagnosis for this admission?: Yes - Transfer Medications Home Medications: Acetaminophen [Tylenol 325 mg Tablet] 650 mg PO Q6HP PRN 12/30/17 Benazepril HCl [Lotensin 20 mg Tablet] 20 mg PO Q12 12/30/17 Betamethasone Dipropionate [Diprosone Cream] 1 applic TOP BID 12/30/17 Calcium Carbonate [Calcium] 600 mg PO DAILY 12/30/17 Cholecalciferol (Vitamin D3) [Vitamin D3] 5,000 intlu PO DAILY 12/30/17 Cold Cream/Zinc Oxide/Star/Art [Dermacloud Ointment] 1 applic TOP DAILY Donepezil HCl [Aricept] 10 mg PO DAILY 12/30/17 Ferrous Sulfate [Feosol 325 mg Tablet] 325 mg PO DAILY 12/30/17 Furosemide [Lasix 40 mg Tablet] 40 mg PO DAILY 12/30/17 Levothyroxine Sodium [Synthroid] 125 mcg PO Q6AM 12/30/17 Magnesium Hydroxide [Milk of Magnesia 30 ml Udcup] 30 ml PO DAILYP PRN 12/30/17 Memantine HCl [Namenda 10 mg Tablet] 10 mg PO BID 12/30/17 Mineral Oil/Petrolatum,White [Minerin Creme] 1 applic TOP BID 12/30/17 Potassium Chloride [K-Tab ER] 20 meq PO DAILY 12/30/17 Risperidone [Risperdal] 0.5 mg PO Q12 12/30/17 Verapamil HCl [Verapamil ER Pm] 300 mg PO QHS 12/30/17 Fluticasone Propionate [Flonase Nasal [place] 50 Mcg/[place] 16 gm] 2 spray NASL Q12 01/26/18 Guaifenesin [Robitussin Syrup 200 mg/10 ml Ud Cup] 200 mg PO Q4HP PRN 01/26/18 Ipratropium/Albuterol Sulfate [Duoneb 3 ml Ampul] 3 ml NEB [id number] PRN 01/26/18 Neomycin/Bacitracin/Polymyxinb [Neosporin Ointment] 1 applic TOP PRN PRN Transfer Medications: Current Medications Albuterol/Ipratropium (Duoneb 3 Ml Ampul) 3 ml NEB RTQ6 JOSEPH Stop: 03/01/18 13:59 Last Admin: 02/01/18 08:10 Dose: 3 ml Amlodipine Besylate (Norvasc 5 Mg Tablet) 5 mg NG DAILY JOSEPH Stop: 02/28/18 09:59 Last Admin: 01/31/18 10:21 Dose: 5 mg Aspirin (Aspirin 325 Mg Tablet) 325 mg NG DAILY JOSEPH Stop: 02/25/18 09:59 Last Admin: 01/31/18 10:21 Dose: 325 mg Budesonide (Pulmicort Neb 0.5 Mg/2 Ml Ampul) 0.5 mg NEB RTQ12 JOSEPH Stop: 02/28/18 19:59 Last Admin: 02/01/18 08:10 Dose: 0.5 mg Calcium Carbonate (Os-Gilbert 500 Mg Tablet (Oyster-Shell)) 500 mg NG DAILY JOSEPH Stop: 02/28/18 09:59 Last Admin: 01/31/18 12:10 Dose: 500 mg Cholecalciferol (Vitamin D3 1000 Unit Tablet) 5,000 unit NG DAILY JOSEPH Stop: 02/28/18 09:59 Last Admin: 01/31/18 10:21 Dose: 5,000 unit Donepezil HCl (Aricept 5 Mg Tablet) 10 mg NG DAILY JOSEPH Stop: 02/28/18 09:59 Last Admin: 01/31/18 10:29 Dose: 10 mg Famotidine (Pepcid Inj/Pf 20 Mg/2 Ml Sdv) 20 mg IV Q12 [facility] Stop: 02/25/18 21:59 Last Admin: 01/31/18 21:02 Dose: 20 mg Fentanyl Citrate (Sublimaze Inj/Pf 100 Mcg/2 Ml Ampule) 75 mcg IV Q4HP PRN PRN Reason: FOR PAIN Stop: 02/01/18 20:33 Last Admin: 02/01/18 00:52 Dose: 75 mcg Ferrous Sulfate (Ferrous Sulfate Liquid 300 Mg/5 Ml Udcup) 300 mg NG DAILY [facility] Stop: 03/01/18 09:59 Last Admin: 01/31/18 10:23 Dose: 300 mg Furosemide (Lasix 40 Mg Tablet) 20 mg NG DAILY [facility] Stop: 02/28/18 09:59 Heparin Sodium (Porcine) (Heparin Inj 5,000 Units/Ml 1 Ml Syringe) 5,000 unit SUBCUT Q8 [facility] Stop: 02/24/18 21:59 Last Admin: 02/01/18 05:02 Dose: 5,000 unit Heparin Sodium (Porcine) (Heparin Flush 10 Unit/Ml 5 Ml Disp.Syrg) 30 unit IV Q8 [facility] Stop: 02/25/18 05:59 Last Admin: 02/01/18 05:01 Dose: 30 unit Heparin Sodium (Porcine) (Heparin Flush 10 Unit/Ml 5 Ml Disp.Syrg) 30 unit IV .AFTER EACH USE PRN PRN Reason: AFTER EACH INTERMITTENT USE Stop: 02/25/18 02:02 Hydralazine HCl (Apresoline Inj/Pf 20 Mg/1 Ml Sdv) 10 mg IV Q6HP PRN PRN Reason: GIVE FOR SBP > [] Stop: 03/03/18 08:34 Midazolam HCl (Versed Rtu 50 Mg/100 Ml Premix Bag) 50 mg in 100 mls @ 0 mls/hr IV CONTINUOUS PRN; Protocol; Titrate PRN Reason: THIS MED IS NOT "PRN" Stop: 02/01/18 18:28 Last Admin: 01/31/18 02:26 Dose: 100 ml Levetiracetam (Keppra Rtu 1000 Mg/Nacl-Iso 100 Ml Premix) 1,000 mg in 100 mls @ 400 mls/hr IV Q12 [facility] Stop: 03/03/18 10:29 Propofol (Diprivan Rtu 1000 Mg/100 Ml Inf.Bottle) 100 mls @ 0 mls/hr IV CONTINUOUS PRN; Protocol; Titrate PRN Reason: THIS MED IS NOT "PRN" Stop: 03/03/18 10:27 Levalbuterol HCl (Xopenex Neb 0.63 Mg/3 Ml Ampul) 0.63 mg NEB RTQ6HP PRN PRN Reason: FOR WHEEZING Stop: 03/01/18 10:15 Levothyroxine Sodium (Synthroid 0.1 Mg Tablet) 0.1 mg NG Q6AM [facility] Stop: 02/28/18 05:59 Last Admin: 02/01/18 05:09 Dose: Not Given Levothyroxine Sodium (Synthroid 0.025 Mg Tablet) 0.025 mg NG Q6AM [facility] Stop: 02/28/18 05:59 Last Admin: 02/01/18 05:09 Dose: Not Given Magnesium Hydroxide (Milk Of Magnesia 30 Ml Udcup) 30 ml NG DAILYP PRN PRN Reason: FOR CONSTIPATION Stop: 02/27/18 20:11 Memantine (Namenda 10 Mg Tablet) 10 mg NG BID JOSEPH Stop: 02/28/18 09:59 Last Admin: 01/31/18 20:35 Dose: Not Given Methylprednisolone Sodium Succinate (Solu-Medrol Inj/Pf 40 Mg/1 Ml Sdv) 40 mg IV Q8 [facility] Stop: 03/03/18 13:59 Mirtazapine (Remeron 15 Mg Tablet) 30 mg NG QHS [facility] Stop: 02/27/18 21:59 Last Admin: 01/31/18 20:35 Dose: Not Given Multi-Ingredient Cream (Eucerin Cream 114 Gm) 1 applic TP BID [facility]SE[facility] Stop: 02/25/18 17:59 Last Admin: 01/31/18 17:33 Dose: 1 applic Olanzapine (Zyprexa Inj/Pf 10 Mg Sdv) 2.5 mg IM Q12 [facility] Stop: 02/27/18 21:59 Last Admin: 01/31/18 21:02 Dose: 2.5 mg Pharmacy Profile Note (Medication Communication Order) 1 each [facility] .NOTICE NR Stop: 02/27/18 20:14 Sodium Chloride (Nacl 0.9% Inj/Pf 10 Ml Sdv) 10 ml IV .AFTER EACH USE PRN PRN Reason: AFTER EACH INTERMITTENT USE Stop: 02/25/18 02:02 Last Admin: 02/01/18 05:01 Dose: 10 ml Thiamine HCl (Thiamine 100 Mg Tablet) 100 mg NG DAILY [facility] Stop: 02/28/18 09:59 Last Admin: 01/31/18 10:22 Dose: 100 mg - Allergies Allergies/Adverse Reactions: No Known Allergies Allergy (Verified 12/01/17 23:53) - Diet/Activity Discharge Activity: Bedrest Hospital Course Hospital Course: History of present illness: HALEY LESTER is a 72 year old female was transferred to the ED from the [facility]. Patient had been experiencing cough. Patient was initially seen in the urgent care area but since cough got progressively worse she was moved to the main ER. While in the main ER patient respiratory status worsened and the decision was made by the ED physician to intubate. After intubation blood pressure decreased. Propofol had been started and was stopped. Due to patient' s medical condition hospitalist service was contacted and prompted to admit. Patient has been diagnosed with Alzheimer's dementia in her early 60s. According to family she was recently admitted to this facility when had an episode which was similar to this current one. Patient does have a history of sarcoidosis for 20 years. There is also a history of hypothyroidism and high blood pressure. Family was at bedside and expressed that patient is a full code. History taking limited due to overall medical condition and not in a lot of information in patient's chart Patient was admitted to intensive care unit and was follow-up by Dr. Ragland, local construction teacher. On admission she was treated with IV Solu-Medrol ,IV Zosyn and IV Lasix. CTA of the chest was done on admission and failed to demonstrate infiltrates suggestive of pneumonic process. Turns out that we later found out that back in December there was a concern about the possibility of tuberculosis and patient was placed on isolation. So far 2 of the AFB cultures have been negative. PPD has been negative. We discontinued lisinopril during this hospitalization. And potassium has been replaced during her ICU stay and had normalized. Patient was extubated on January 28 however within around 8-10 hours of being extubated she required to be reintubated. Patient continued doing well and she was extubated on January 31. On the day of transfer we were notified that patient became unresponsive and was desaturating. Patient required to be reintubated. Neurological examination raised the concern about the possibility of patient to be having a seizure. She was administered Keppra 1000 mg IV. Patient was also placed on propofol since re-intubated. Due to persistent respiratory failure requiring for patient to be reintubated x 2 and concern about a neurological condition such as seizure disorder and lacking adequate support. We contacted [facility] and Dr. Mcdonough kindly accepted patient in transfer. Physical Exam Vital Signs: Temp Pulse Resp BP Pulse Ox 98.6 F 65 19 184/92 H 92 02/01/18 06:11 02/01/18 09:49 02/01/18 08:10 02/01/18 06:11 02/01/18 10:20 Intake & Output 01/31/18 02/01/18 02/02/18 06:59 06:59 06:59 Intake Total 2615 751 Output Total 3485 2775 - Weight 72.1 kg 70 kg General appearance: PRESENT: other - sedated Head exam: PRESENT: atraumatic, normocephalic Eye exam: PRESENT: conjunctiva pink, other - Pupils fixed and dilated Ear exam: PRESENT: normal external ear exam Mouth exam: PRESENT: moist Neck exam: ABSENT: JVD, lymphadenopathy, tenderness, thyromegaly, tracheal deviation Respiratory exam: PRESENT: crackles Cardiovascular exam: PRESENT: tachycardia. ABSENT: diastolic murmur, systolic murmur Vascular exam: PRESENT: normal capillary refill GI/Abdominal exam: PRESENT: normal bowel sounds, soft. ABSENT: tenderness Extremities exam: ABSENT: pedal edema Musculoskeletal exam: ABSENT: ambulatory Neurological exam: PRESENT: other - Patient body appears to be rigid Skin exam: PRESENT: intact, normal color Results Laboratory Results: 02/01/18 05:00 02/01/18 05:00 02/01/18 02/01/18 02/01/18 05:00 05:00 05:00 WBC 14.6 H RBC 4.21 Hgb 11.8 L Hct 36.2 MCV 86 MCH 28.1 MCHC 32.7 RDW 14.4 H Plt Count 183 Seg Neutrophils % Not Reportable Lymphocytes % Not Reportable Monocytes % Not Reportable Eosinophils % Not Reportable Basophils % Not Reportable Absolute Neutrophils Not Reportable Absolute Lymphocytes Not Reportable Absolute Monocytes Not Reportable Absolute Eosinophils Not Reportable Absolute Basophils Not Reportable Carbonic Acid 1.38 H HCO3/H2CO3 Ratio 24:1 ABG pH 7.49 H ABG pCO2 45.8 H ABG pO2 100.8 H ABG HCO3 34.3 H ABG O2 Saturation 98.0 ABG Base Excess 9.7 FiO2 30% Sodium 138.9 Potassium 4.2 Chloride 98 Carbon Dioxide 38 H Anion Gap 3 L BUN 29 H Creatinine 0.77 Est GFR ( Amer) > 60 Est GFR (Non-Af Amer) > 60 Glucose 108 Calcium 9.4 Phosphorus 5.3 H Magnesium 2.4 H 02/01/18 10:00 WBC RBC Hgb Hct MCV MCH MCHC RDW Plt Count Seg Neutrophils % Lymphocytes % Monocytes % Eosinophils % Basophils % Absolute Neutrophils Absolute Lymphocytes Absolute Monocytes Absolute Eosinophils Absolute Basophils Carbonic Acid 2.50 H HCO3/H2CO3 Ratio 12:1 ABG pH 7.19 L* ABG pCO2 82.9 H* ABG pO2 170.5 H ABG HCO3 31.2 H ABG O2 Saturation 98.7 H ABG Base Excess 0.3 FiO2 100% Sodium Potassium Chloride Carbon Dioxide Anion Gap BUN Creatinine Est GFR ( Amer) Est GFR (Non-Af Amer) Glucose Calcium Phosphorus Magnesium 01/30/18 09:40 Tracheal Aspirate AFB Smear Concentration - Final 01/30/18 09:40 Tracheal Aspirate Acid Fast Bacilli Smear - Final 01/29/18 11:30 Tracheal Aspirate AFB Smear Concentration - Final 01/29/18 11:30 Tracheal Aspirate Acid Fast Bacilli Smear - Final 01/25/18 01/26/18 01/26/18 21:27 01:50 01:50 Creatine Kinase < 20 L CK-MB (CK-2) Troponin I 0.536 1.010 01/26/18 01/26/18 01/26/18 01:50 06:30 06:30 Creatine Kinase 67 CK-MB (CK-2) < 0.22 3.75 Troponin I 1.020 01/30/18 01/30/18 01/30/18 08:15 14:30 20:10 Creatine Kinase CK-MB (CK-2) Troponin I 0.052 0.044 0.051 Impressions: Chest/Abdomen CTA 01/25/18 00:00 IMPRESSION: 1. No PE. 2. Chronic airspace disease in both lungs, right greater than left. Stable pulmonary nodules. There is increasing density in the right upper lobe probably representing small amount of loculated fluid. No empyema. Abdomen Ultrasound 02/01/18 00:00 IMPRESSION: 1. Cholelithiasis with gallbladder wall thickening. Chest X-Ray 02/01/18 06:00 IMPRESSION: 1. Interval removal of endotracheal tube and NG tube with improved aeration of the right lung.
[2018-02-01] MEDS: MINERAL OIL/PETROLATUM,WHITE CREAM 114 GM TP SCH (11:42)
[2018-02-01] MEDS: ASPIRIN 325 MG TABLET NG SCH (11:42)
[2018-02-01] MEDS ORDERED: LEVETIRACETAM 1000 MG/NACL-ISO 1,000 MG/100 ML RTUPB IV SCH (12:00)
[2018-02-01] MEDS ORDERED: METHYLPREDNISOLONE INJ 40 MG/1 ML SDV IV SCH (14:00)
[2018-02-01 14:16] VITALS: BP 124/82
--- NOTE | 2018-02-01 16:41 | PDOC PROGRESS REPORT ---
Subjective Progress Note for:: 01/28/18 Subjective:: Sedated&Intubated Reason For Visit: ACUTE RESPIRATORY FAILURE Physical Exam Vital Signs: Temp Pulse Resp BP Pulse Ox 98.2 F 76 12 133/78 H 95 01/28/18 07:44 01/28/18 07:44 01/28/18 07:44 01/28/18 07:44 01/28/18 07:44 Intake & Output 01/27/18 01/28/18 01/29/18 06:59 06:59 06:59 Intake Total 3077 2914 Output Total 2560 4440 1000 Balance 517 -1526 -1000 Weight 76.8 kg 76.6 kg General appearance: PRESENT: no acute distress, disheveled, well-developed, well -nourished. ABSENT: cooperative Head exam: PRESENT: atraumatic, normocephalic Eye exam: PRESENT: conjunctiva pale. ABSENT: nystagmus, periorbital swelling, scleral icterus Mouth exam: PRESENT: dry mucosa, neck supple, tongue midline, other - ET Neck exam: ABSENT: carotid bruit, JVD, lymphadenopathy, thyromegaly, tracheal deviation, tracheostomy Respiratory exam: PRESENT: rales, rhonchi, symmetrical, unlabored. ABSENT: decreased breath sounds, prolonged expiratory phas, retraction, stridor, tachypnea Cardiovascular exam: PRESENT: RRR, +S1, +S2 Pulses: PRESENT: normal radial pulses GI/Abdominal exam: PRESENT: diminished bowel sounds, soft Gentrourinary exam: PRESENT: indwelling catheter Extremities exam: ABSENT: clubbing, joint swelling Musculoskeletal exam: ABSENT: deformity, dislocation Neurological exam: ABSENT: alert, awake Skin exam: PRESENT: dry, warm Results Laboratory Results: 01/28/18 05:05 01/28/18 05:05 01/28/18 01/28/18 01/28/18 05:05 05:05 05:05 WBC 9.1 RBC 4.08 Hgb 11.6 L Hct 35.4 L MCV 87 MCH 28.4 MCHC 32.7 RDW 14.9 H Plt Count 142 L Seg Neutrophils % Not Reportable Lymphocytes % Not Reportable Monocytes % Not Reportable Eosinophils % Not Reportable Basophils % Not Reportable Absolute Neutrophils Not Reportable Absolute Lymphocytes Not Reportable Absolute Monocytes Not Reportable Absolute Eosinophils Not Reportable Absolute Basophils Not Reportable Carbonic Acid 1.09 HCO3/H2CO3 Ratio 20:1 ABG pH 7.40 ABG pCO2 36.2 ABG pO2 94.7 ABG HCO3 22.1 ABG O2 Saturation 97.3 ABG Base Excess -2.1 FiO2 30% Sodium 145.9 H Potassium 3.2 L Chloride 112 H Carbon Dioxide 26 Anion Gap 8 BUN 18 Creatinine 0.80 Est GFR ( Amer) > 60 Est GFR (Non-Af Amer) > 60 Glucose 122 H Calcium 8.0 L Phosphorus 2.4 L Magnesium 2.1 01/25/18 01/26/18 01/26/18 21:27 01:50 01:50 Creatine Kinase < 20 L CK-MB (CK-2) Troponin I 0.536 1.010 01/26/18 01/26/18 01/26/18 01:50 06:30 06:30 Creatine Kinase 67 CK-MB (CK-2) < 0.22 3.75 Troponin I 1.020 Impressions: Chest/Abdomen CTA 01/25/18 00:00 IMPRESSION: 1. No PE. 2. Chronic airspace disease in both lungs, right greater than left. Stable pulmonary nodules. There is increasing density in the right upper lobe probably representing small amount of loculated fluid. No empyema. Chest X-Ray 01/28/18 06:00 IMPRESSION: 1. Mild interval increase in right perihilar interstitial and alveolar opacity. This may be related to atelectasis or worsening pneumonia. Assessment & Plan - Diagnosis (1) Acute and chronic respiratory failure Qualifiers: Respiratory failure complication: hypoxia and hypercapnia Qualified Code(s) : J96.21 - Acute and chronic respiratory failure with hypoxia; J96.22 - Acute and chronic respiratory failure with hypercapnia; J96.22 - Acute and chronic respiratory failure with hypercapnia; J96.22 - Acute and chronic respiratory failure with hypercapnia Is this a current diagnosis for this admission?: Yes Plan: Aspiration (2) Sarcoidosis Is this a current diagnosis for this admission?: Yes Plan: Stable (3) Aspiration into respiratory tract Is this a current diagnosis for this admission?: Yes Plan: UNCHANGED LAST 24HRS - Time Total Critical Time (Minutes): 35
--- NOTE | 2018-02-01 16:43 | PDOC PROGRESS REPORT ---
Subjective Progress Note for:: 01/29/18 Subjective:: Sedated&Intubated Reason For Visit: ACUTE RESPIRATORY FAILURE Physical Exam Vital Signs: Temp Pulse Resp BP Pulse Ox 98.2 F 61 12 161/82 H 95 01/29/18 08:00 01/29/18 08:00 01/29/18 08:00 01/29/18 08:00 01/29/18 08:00 Intake & Output 01/28/18 01/29/18 01/30/18 06:59 06:59 06:59 Intake Total 2914 2864 Output Total 4440 4295 60 Balance -1526 -1431 -60 Weight 76.6 kg 74.7 kg General appearance: PRESENT: no acute distress, disheveled, well-developed, well -nourished. ABSENT: cooperative Head exam: PRESENT: atraumatic, normocephalic Eye exam: PRESENT: conjunctiva pale. ABSENT: scleral icterus Mouth exam: PRESENT: moist, neck supple, tongue midline, other - ET Neck exam: ABSENT: carotid bruit, JVD, lymphadenopathy, thyromegaly, tracheal deviation, tracheostomy Respiratory exam: PRESENT: decreased breath sounds, prolonged expiratory phas, rales, rhonchi, symmetrical, unlabored, wheezes. ABSENT: retraction, stridor, tachypnea Cardiovascular exam: PRESENT: RRR, +S1, +S2 Pulses: PRESENT: normal radial pulses GI/Abdominal exam: PRESENT: diminished bowel sounds, soft Extremities exam: ABSENT: clubbing, full ROM, joint swelling Musculoskeletal exam: ABSENT: ambulatory, deformity, dislocation Neurological exam: ABSENT: awake, oriented to person Skin exam: PRESENT: dry, warm Results Laboratory Results: 01/29/18 05:15 01/29/18 05:15 01/28/18 01/28/18 01/28/18 16:35 20:05 21:15 WBC RBC Hgb Hct MCV MCH MCHC RDW Plt Count Seg Neutrophils % Lymphocytes % Monocytes % Eosinophils % Basophils % Absolute Neutrophils Absolute Lymphocytes Absolute Monocytes Absolute Eosinophils Absolute Basophils Carbonic Acid 1.39 H 2.08 H 1.75 H HCO3/H2CO3 Ratio 20:1 13:1 15:1 ABG pH 7.40 7.22 L 7.28 L ABG pCO2 46.3 H 69.0 H 58.3 H ABG pO2 172.5 H 357.2 H 293.8 H ABG HCO3 27.8 H 27.7 H 26.8 H ABG O2 Saturation 99.2 H 99.7 H 99.6 H ABG Base Excess 2.4 -1.8 -1.0 FiO2 40% 100 60% Sodium Potassium Chloride Carbon Dioxide Anion Gap BUN Creatinine Est GFR ( Amer) Est GFR (Non-Af Amer) Glucose Calcium Magnesium Total Bilirubin AST ALT Alkaline Phosphatase Total Protein Albumin 01/29/18 01/29/18 01/29/18 05:15 05:15 06:00 WBC 8.2 RBC 4.17 Hgb 11.9 L Hct 36.6 MCV 88 MCH 28.6 MCHC 32.6 RDW 14.9 H Plt Count 153 Seg Neutrophils % 85.1 H Lymphocytes % 7.2 L Monocytes % 7.6 Eosinophils % 0.0 Basophils % 0.1 Absolute Neutrophils 7.0 Absolute Lymphocytes 0.6 Absolute Monocytes 0.6 Absolute Eosinophils 0.0 Absolute Basophils 0.0 Carbonic Acid 1.18 HCO3/H2CO3 Ratio 21:1 ABG pH 7.44 ABG pCO2 39.2 ABG pO2 118.4 H ABG HCO3 25.9 ABG O2 Saturation 98.4 H ABG Base Excess 1.7 FiO2 40% Sodium 147.7 H Potassium 3.9 Chloride 113 H Carbon Dioxide 32 H Anion Gap 3 L BUN 21 H Creatinine 0.91 Est GFR ( Amer) > 60 Est GFR (Non-Af Amer) > 60 Glucose 96 Calcium 8.3 L Magnesium 2.3 Total Bilirubin 0.4 AST 33 ALT 49 Alkaline Phosphatase 71 Total Protein 5.1 L Albumin 2.7 L 01/26/18 08:00 Tracheal Aspirate Gram Stain - Final 01/26/18 08:00 Tracheal Aspirate Sputum Culture - Final NORMAL AMRIK 01/26/18 08:00 Catheterized Urine Urine Culture - Final NO GROWTH 2 DAYS 01/25/18 01/26/18 01/26/18 21:27 01:50 01:50 Creatine Kinase < 20 L CK-MB (CK-2) Troponin I 0.536 1.010 01/26/18 01/26/18 01/26/18 01:50 06:30 06:30 Creatine Kinase 67 CK-MB (CK-2) < 0.22 3.75 Troponin I 1.020 Impressions: Chest/Abdomen CTA 01/25/18 00:00 IMPRESSION: 1. No PE. 2. Chronic airspace disease in both lungs, right greater than left. Stable pulmonary nodules. There is increasing density in the right upper lobe probably representing small amount of loculated fluid. No empyema. Chest X-Ray 01/29/18 06:00 IMPRESSION: 1. No significant interval change. Assessment & Plan - Diagnosis (1) Acute and chronic respiratory failure Qualifiers: Respiratory failure complication: hypoxia and hypercapnia Qualified Code(s) : J96.21 - Acute and chronic respiratory failure with hypoxia; J96.22 - Acute and chronic respiratory failure with hypercapnia; J96.22 - Acute and chronic respiratory failure with hypercapnia; J96.22 - Acute and chronic respiratory failure with hypercapnia Is this a current diagnosis for this admission?: Yes Plan: Aspiration (2) Sarcoidosis Is this a current diagnosis for this admission?: Yes Plan: Stable (3) Aspiration into respiratory tract Is this a current diagnosis for this admission?: Yes Plan: UNCHANGED LAST 24HRS - Time Total Critical Time (Minutes): 36
--- NOTE | 2018-02-01 16:45 | PDOC PROGRESS REPORT ---
Subjective Progress Note for:: 01/30/18 Subjective:: Sedated&Intubated Reason For Visit: ACUTE RESPIRATORY FAILURE Physical Exam Vital Signs: Temp Pulse Resp BP Pulse Ox 98.4 F 64 12 114/61 99 01/31/18 06:00 01/31/18 05:46 01/31/18 06:00 01/31/18 05:46 01/31/18 06:00 Intake & Output 01/30/18 01/31/18 02/01/18 06:59 06:59 06:59 Intake Total 2947 2615 Output Total 3505 3485 100 Balance -558 -870 -100 Weight 73.9 kg 72.1 kg General appearance: PRESENT: no acute distress, disheveled, well-developed, well -nourished Head exam: PRESENT: atraumatic, normocephalic Eye exam: PRESENT: conjunctiva pale. ABSENT: nystagmus, periorbital swelling, scleral icterus Mouth exam: PRESENT: moist, neck supple, tongue midline, other - et Neck exam: ABSENT: carotid bruit, JVD, lymphadenopathy, thyromegaly, tracheal deviation, tracheostomy Respiratory exam: PRESENT: decreased breath sounds, prolonged expiratory phas, rales, rhonchi, symmetrical, unlabored, wheezes. ABSENT: retraction, stridor, tachypnea Pulses: PRESENT: normal radial pulses GI/Abdominal exam: PRESENT: diminished bowel sounds, soft Extremities exam: ABSENT: calf tenderness, clubbing, joint swelling Musculoskeletal exam: ABSENT: ambulatory, deformity, dislocation Neurological exam: ABSENT: awake, oriented to person Skin exam: PRESENT: dry, warm Results Laboratory Results: 01/31/18 05:35 01/31/18 05:35 01/31/18 01/31/18 01/31/18 05:35 05:35 05:35 WBC 10.9 H RBC 4.11 Hgb 12.1 Hct 35.2 L MCV 86 MCH 29.3 MCHC 34.3 RDW 14.3 H Plt Count 165 Seg Neutrophils % Not Reportable Lymphocytes % Not Reportable Monocytes % Not Reportable Eosinophils % Not Reportable Basophils % Not Reportable Absolute Neutrophils Not Reportable Absolute Lymphocytes Not Reportable Absolute Monocytes Not Reportable Absolute Eosinophils Not Reportable Absolute Basophils Not Reportable Carbonic Acid 1.23 HCO3/H2CO3 Ratio 23:1 ABG pH 7.47 H ABG pCO2 40.7 ABG pO2 128.9 H ABG HCO3 29.2 H ABG O2 Saturation 98.7 H ABG Base Excess 5.2 FiO2 40% Sodium 139.0 Potassium 4.6 D Chloride 101 Carbon Dioxide 36 H Anion Gap 2 L BUN 20 Creatinine 0.84 Est GFR ( Amer) > 60 Est GFR (Non-Af Amer) > 60 Glucose 162 H Calcium 9.3 Magnesium 2.3 Total Bilirubin 0.3 AST 38 H ALT 65 H Alkaline Phosphatase 73 Total Protein 5.1 L Albumin 2.8 L 01/25/18 01/26/18 01/26/18 21:27 01:50 01:50 Creatine Kinase < 20 L CK-MB (CK-2) Troponin I 0.536 1.010 01/26/18 01/26/18 01/26/18 01:50 06:30 06:30 Creatine Kinase 67 CK-MB (CK-2) < 0.22 3.75 Troponin I 1.020 01/30/18 01/30/18 01/30/18 08:15 14:30 20:10 Creatine Kinase CK-MB (CK-2) Troponin I 0.052 0.044 0.051 Impressions: Chest/Abdomen CTA 01/25/18 00:00 IMPRESSION: 1. No PE. 2. Chronic airspace disease in both lungs, right greater than left. Stable pulmonary nodules. There is increasing density in the right upper lobe probably representing small amount of loculated fluid. No empyema. Chest X-Ray 01/31/18 06:00 IMPRESSION: Improved fluid overload or congestive failure pattern compared to previous studies. Tubes and lines in good positioning Assessment & Plan - Diagnosis (1) Acute and chronic respiratory failure Qualifiers: Respiratory failure complication: hypoxia and hypercapnia Qualified Code(s) : J96.21 - Acute and chronic respiratory failure with hypoxia; J96.22 - Acute and chronic respiratory failure with hypercapnia; J96.22 - Acute and chronic respiratory failure with hypercapnia; J96.22 - Acute and chronic respiratory failure with hypercapnia Is this a current diagnosis for this admission?: Yes (2) Sarcoidosis Is this a current diagnosis for this admission?: Yes (3) Aspiration into respiratory tract Is this a current diagnosis for this admission?: Yes
--- NOTE | 2018-02-01 16:48 | PDOC PROGRESS REPORT ---
Subjective Progress Note for:: 01/31/18 Subjective:: REMAINS Intubated Reason For Visit: ACUTE RESPIRATORY FAILURE Physical Exam Vital Signs: Temp Pulse Resp BP Pulse Ox 98.4 F 64 12 114/61 99 01/31/18 06:00 01/31/18 05:46 01/31/18 06:00 01/31/18 05:46 01/31/18 06:00 Intake & Output 01/30/18 01/31/18 02/01/18 06:59 06:59 06:59 Intake Total 2947 2615 Output Total 3505 3485 100 Balance -558 -870 -100 Weight 73.9 kg 72.1 kg General appearance: PRESENT: no acute distress, disheveled, well-developed, well -nourished Head exam: PRESENT: atraumatic, normocephalic Eye exam: PRESENT: conjunctiva pale, nystagmus, periorbital swelling, scleral icterus Mouth exam: PRESENT: dry mucosa, neck supple, tongue midline, other - et Neck exam: ABSENT: carotid bruit, JVD, lymphadenopathy, thyromegaly, tracheal deviation, tracheostomy Respiratory exam: PRESENT: decreased breath sounds, prolonged expiratory phas, rales, rhonchi, symmetrical, unlabored. ABSENT: retraction, stridor, tachypnea Cardiovascular exam: PRESENT: RRR, +S1, +S2, tachycardia Pulses: PRESENT: normal radial pulses GI/Abdominal exam: PRESENT: diminished bowel sounds, soft Gentrourinary exam: PRESENT: indwelling catheter Extremities exam: ABSENT: clubbing, joint swelling Musculoskeletal exam: ABSENT: ambulatory, deformity, dislocation Neurological exam: PRESENT: awake. ABSENT: alert Skin exam: PRESENT: dry, warm Results Laboratory Results: 01/31/18 05:35 01/31/18 05:35 01/31/18 01/31/18 01/31/18 05:35 05:35 05:35 WBC 10.9 H RBC 4.11 Hgb 12.1 Hct 35.2 L MCV 86 MCH 29.3 MCHC 34.3 RDW 14.3 H Plt Count 165 Seg Neutrophils % Not Reportable Lymphocytes % Not Reportable Monocytes % Not Reportable Eosinophils % Not Reportable Basophils % Not Reportable Absolute Neutrophils Not Reportable Absolute Lymphocytes Not Reportable Absolute Monocytes Not Reportable Absolute Eosinophils Not Reportable Absolute Basophils Not Reportable Carbonic Acid 1.23 HCO3/H2CO3 Ratio 23:1 ABG pH 7.47 H ABG pCO2 40.7 ABG pO2 128.9 H ABG HCO3 29.2 H ABG O2 Saturation 98.7 H ABG Base Excess 5.2 FiO2 40% Sodium 139.0 Potassium 4.6 D Chloride 101 Carbon Dioxide 36 H Anion Gap 2 L BUN 20 Creatinine 0.84 Est GFR ( Amer) > 60 Est GFR (Non-Af Amer) > 60 Glucose 162 H Calcium 9.3 Magnesium 2.3 Total Bilirubin 0.3 AST 38 H ALT 65 H Alkaline Phosphatase 73 Total Protein 5.1 L Albumin 2.8 L 01/25/18 01/26/18 01/26/18 21:27 01:50 01:50 Creatine Kinase < 20 L CK-MB (CK-2) Troponin I 0.536 1.010 01/26/18 01/26/18 01/26/18 01:50 06:30 06:30 Creatine Kinase 67 CK-MB (CK-2) < 0.22 3.75 Troponin I 1.020 01/30/18 01/30/18 01/30/18 08:15 14:30 20:10 Creatine Kinase CK-MB (CK-2) Troponin I 0.052 0.044 0.051 Impressions: Chest/Abdomen CTA 01/25/18 00:00 IMPRESSION: 1. No PE. 2. Chronic airspace disease in both lungs, right greater than left. Stable pulmonary nodules. There is increasing density in the right upper lobe probably representing small amount of loculated fluid. No empyema. Chest X-Ray 01/31/18 06:00 IMPRESSION: Improved fluid overload or congestive failure pattern compared to previous studies. Tubes and lines in good positioning Assessment & Plan - Diagnosis (1) Acute and chronic respiratory failure Qualifiers: Respiratory failure complication: hypoxia and hypercapnia Qualified Code(s) : J96.21 - Acute and chronic respiratory failure with hypoxia; J96.22 - Acute and chronic respiratory failure with hypercapnia; J96.22 - Acute and chronic respiratory failure with hypercapnia; J96.22 - Acute and chronic respiratory failure with hypercapnia Is this a current diagnosis for this admission?: Yes Plan: RR,FIO3,MIN VENT,AIRWAY PRESURES. OK WILL EXTUBATE (2) Sarcoidosis Is this a current diagnosis for this admission?: Yes (3) Aspiration into respiratory tract Is this a current diagnosis for this admission?: Yes Plan: IMPROVED - Time Total Critical Time (Minutes): 55
--- NOTE | 2018-02-01 16:53 | PDOC PROGRESS REPORT ---
Subjective Progress Note for:: 02/01/18 Subjective:: 24HRS S/P EXTUBATION DID WELL UNTIL 2 HRS AGO ACUTE EVENT WITH HYPOXIA REQUIRING REINTUBATION Reason For Visit: ACUTE RESPIRATORY FAILURE Physical Exam Vital Signs: Temp Pulse Resp BP Pulse Ox 99.5 F 65 14 124/82 96 02/01/18 13:00 02/01/18 09:49 02/01/18 13:00 02/01/18 12:46 02/01/18 13:00 Intake & Output 01/31/18 02/01/18 02/02/18 06:59 06:59 06:59 Intake Total 2615 751 Output Total 3485 2775 275 Balance -870 -2024 -275 Weight 72.1 kg 70 kg General appearance: PRESENT: no acute distress, disheveled, well-developed, well -nourished. ABSENT: cooperative Head exam: PRESENT: atraumatic, normocephalic Eye exam: PRESENT: conjunctiva pale. ABSENT: nystagmus, periorbital swelling, scleral icterus Mouth exam: PRESENT: dry mucosa, neck supple, tongue midline, other - ET Neck exam: ABSENT: carotid bruit, JVD, lymphadenopathy, thyromegaly, tracheal deviation, tracheostomy Respiratory exam: PRESENT: decreased breath sounds, prolonged expiratory phas, rales, rhonchi, symmetrical, unlabored, wheezes. ABSENT: retraction, stridor, tachypnea Cardiovascular exam: PRESENT: RRR, +S1, tachycardia Pulses: PRESENT: normal radial pulses GI/Abdominal exam: PRESENT: diminished bowel sounds, soft Extremities exam: ABSENT: clubbing, joint swelling Musculoskeletal exam: ABSENT: ambulatory, deformity, dislocation Neurological exam: ABSENT: alert, awake Skin exam: PRESENT: dry, warm Results Laboratory Results: 02/01/18 05:00 02/01/18 05:00 02/01/18 02/01/18 02/01/18 05:00 05:00 05:00 WBC 14.6 H RBC 4.21 Hgb 11.8 L Hct 36.2 MCV 86 MCH 28.1 MCHC 32.7 RDW 14.4 H Plt Count 183 Seg Neutrophils % Not Reportable Lymphocytes % Not Reportable Monocytes % Not Reportable Eosinophils % Not Reportable Basophils % Not Reportable Absolute Neutrophils Not Reportable Absolute Lymphocytes Not Reportable Absolute Monocytes Not Reportable Absolute Eosinophils Not Reportable Absolute Basophils Not Reportable Carbonic Acid 1.38 H HCO3/H2CO3 Ratio 24:1 ABG pH 7.49 H ABG pCO2 45.8 H ABG pO2 100.8 H ABG HCO3 34.3 H ABG O2 Saturation 98.0 ABG Base Excess 9.7 FiO2 30% Sodium 138.9 Potassium 4.2 Chloride 98 Carbon Dioxide 38 H Anion Gap 3 L BUN 29 H Creatinine 0.77 Est GFR ( Amer) > 60 Est GFR (Non-Af Amer) > 60 Glucose 108 Calcium 9.4 Phosphorus 5.3 H Magnesium 2.4 H 02/01/18 10:00 WBC RBC Hgb Hct MCV MCH MCHC RDW Plt Count Seg Neutrophils % Lymphocytes % Monocytes % Eosinophils % Basophils % Absolute Neutrophils Absolute Lymphocytes Absolute Monocytes Absolute Eosinophils Absolute Basophils Carbonic Acid 2.50 H HCO3/H2CO3 Ratio 12:1 ABG pH 7.19 L* ABG pCO2 82.9 H* ABG pO2 170.5 H ABG HCO3 31.2 H ABG O2 Saturation 98.7 H ABG Base Excess 0.3 FiO2 100% Sodium Potassium Chloride Carbon Dioxide Anion Gap BUN Creatinine Est GFR ( Amer) Est GFR (Non-Af Amer) Glucose Calcium Phosphorus Magnesium 01/30/18 09:40 Tracheal Aspirate AFB Smear Concentration - Final 01/30/18 09:40 Tracheal Aspirate Acid Fast Bacilli Smear - Final 01/29/18 11:30 Tracheal Aspirate AFB Smear Concentration - Final 01/29/18 11:30 Tracheal Aspirate Acid Fast Bacilli Smear - Final 01/25/18 01/26/18 01/26/18 21:27 01:50 01:50 Creatine Kinase < 20 L CK-MB (CK-2) Troponin I 0.536 1.010 01/26/18 01/26/18 01/26/18 01:50 06:30 06:30 Creatine Kinase 67 CK-MB (CK-2) < 0.22 3.75 Troponin I 1.020 01/30/18 01/30/18 01/30/18 08:15 14:30 20:10 Creatine Kinase CK-MB (CK-2) Troponin I 0.052 0.044 0.051 Impressions: Chest/Abdomen CTA 01/25/18 00:00 IMPRESSION: 1. No PE. 2. Chronic airspace disease in both lungs, right greater than left. Stable pulmonary nodules. There is increasing density in the right upper lobe probably representing small amount of loculated fluid. No empyema. Abdomen Ultrasound 02/01/18 00:00 IMPRESSION: 1. Cholelithiasis with gallbladder wall thickening. Chest X-Ray 02/01/18 06:00 IMPRESSION: 1. Interval removal of endotracheal tube and NG tube with improved aeration of the right lung. Assessment & Plan - Diagnosis (1) Acute and chronic respiratory failure Qualifiers: Respiratory failure complication: hypoxia and hypercapnia Qualified Code(s) : J96.21 - Acute and chronic respiratory failure with hypoxia; J96.22 - Acute and chronic respiratory failure with hypercapnia; J96.22 - Acute and chronic respiratory failure with hypercapnia; J96.22 - Acute and chronic respiratory failure with hypercapnia Is this a current diagnosis for this admission?: Yes Plan: DID WELL 22 HRS REINTUBATED FOR ACUTE EVENT W HYPOXIA (2) Sarcoidosis Is this a current diagnosis for this admission?: Yes (3) Aspiration into respiratory tract Is this a current diagnosis for this admission?: Yes Plan: IMPROVED - Time Total Critical Time (Minutes): 45 - Plan Summary Plan Summary: PATIENT TRANSFERED TO TERTIARY CARE PER PCP
== END 2018-02-01 13:15 | disposition short-term general hospital (02) | DRG 207 ==
LOC: ER 14:52 → EH 19:18 → ICU 23:19
PROVIDERS: ADMIT Family Medicine; ATTEND Family Medicine
PROC: 5A1955Z Respiratory Ventilation, Greater than 96 Consecutive Hours (ICD-10-PCS; principal; 2018-01-25)
PROC: 0BH17EZ Insertion of Endotracheal Airway into Trachea, Via Natural or Artificial Opening (ICD-10-PCS; 2018-01-25)
PROC: 3E0F73Z Introduction of Anti-inflammatory into Respiratory Tract, Via Natural or Artificial Opening (ICD-10-PCS; 2018-01-26)
PROC: 02HV33Z Insertion of Infusion Device into Superior Vena Cava, Percutaneous Approach (ICD-10-PCS; 2018-01-26)
PROC: 3E04329 Introduction of Other Anti-infective into Central Vein, Percutaneous Approach (ICD-10-PCS; 2018-01-26)
PROC: 5A09357 Assistance with Respiratory Ventilation, Less than 24 Consecutive Hours, Continuous Positive Airway Pressure (ICD-10-PCS; 2018-01-28)
PROC: 5A1935Z Respiratory Ventilation, Less than 24 Consecutive Hours (ICD-10-PCS; 2018-02-01)
PROC: 0BH17EZ Insertion of Endotracheal Airway into Trachea, Via Natural or Artificial Opening (ICD-10-PCS; 2018-02-01)
DX: J96.21 Acute and chronic respiratory failure with hypoxia (principal); E87.0 Hyperosmolality and hypernatremia; I24.8 Other forms of acute ischemic heart disease; J96.22 Acute and chronic respiratory failure with hypercapnia; Z78.1 Physical restraint status; D86.9 Sarcoidosis, unspecified; I10 Essential (primary) hypertension; E03.9 Hypothyroidism, unspecified; E87.6 Hypokalemia; I27.20 Pulmonary hypertension, unspecified; D64.9 Anemia, unspecified; G40.909 Epilepsy, unspecified, not intractable, without status epilepticus; I95.89 Other hypotension; K80.20 Calculus of gallbladder without cholecystitis without obstruction; G30.9 Alzheimer's disease, unspecified; F02.80 Dementia in other diseases classified elsewhere, unspecified severity, without behavioral disturbance, psychotic disturbance, mood disturbance, and anxiety; E78.00 Pure hypercholesterolemia, unspecified; J44.9 Chronic obstructive pulmonary disease, unspecified; R91.8 Other nonspecific abnormal finding of lung field; M40.202 Unspecified kyphosis, cervical region; I87.2 Venous insufficiency (chronic) (peripheral); Z79.899 Other long term (current) drug therapy; Z90.710 Acquired absence of both cervix and uterus
CPT/HCPCS: 31500; 36415; 36600; 71045; 71046; 71275; 76705; 80048; 80053; 81001; 82550; 82553; 82803; 83605; 83735; 83880; 84100; 84443; 84484; 85025; 85610; 85730; 87015; 87040; 87070; 87086; 87116; 87205; 87206; 93005; 93010; 93306; 94002; 94003; 94640; 94660; 96361; 96365; 96375; 99291; C1751; J0330; J1100; J1642; J1644; J1940; J1953; J1956; J2250; J2543; J2704; J2920; J3010; J3480; J3490; J7030; J7060; J7620; S0028

== ENCOUNTER 2018-03-04 01:55 | Inpatient (IN) | payer MEDICARE, MEDICAID ==
[2018-03-04] MEDS ORDERED: IPRATROPIUM/ALBUTEROL 0.5-2.5 MG/3 ML AMPUL NEB ONE ×2 (02:04→02:10)
--- NOTE | 2018-03-04 02:12 | ER Document Report ---
ED General - General Stated Complaint: DIFFICULTY BREATHING Time Seen by Provider: 03/04/18 02:09 Notes: Patient is a 72-year-old female presents with complaint of difficulty breathing. She is brought in from the shelter. When the paramedics arrived to shelter her oxygen saturation was 36% on room air. The immediate place her on nonrebreather and gave her multiple breathing treatments as well as also give her magnesium and Solu-Medrol. She arrives somnolent. She is unable to answer questions. She is apparently on hospice but also a full code. She was recently discharged from [facility] about a week ago. At that time she had been on a ventilator for 16 days before finally being extubated. TRAVEL OUTSIDE OF THE [place] IN LAST 30 DAYS: No - Related Data Allergies/Adverse Reactions: No Known Allergies Allergy (Verified 12/01/17 23:53) Past Medical History - Social History Smoking Status: Unknown if Ever Smoked Frequency of alcohol use: None Drug Abuse: None Family History: Reviewed & Not Pertinent - Past Medical History Cardiac Medical History: Reports: Hx Hypercholesterolemia, Hx Hypertension Denies: Hx Coronary Artery Disease Pulmonary Medical History: Reports: Hx Asthma, Hx COPD Endocrine Medical History: Reports: Hx Hypothyroidism Renal/ Medical History: Denies: Hx Peritoneal Dialysis Psychiatric Medical History: Reports: Hx Dementia Denies: Hx Depression Past Surgical History: Reports: Hx Hysterectomy, Hx Orthopedic Surgery - low back fusion - Immunizations Hx Diphtheria, Pertussis, Tetanus Vaccination: No Hx Pneumococcal Vaccination: 08/10/13 Review of Systems - Review of Systems -: Yes ROS unobtainable due to patient's medical condition - Patient is altered from hypoxemia. Physical Exam - Vital signs Vitals: Pulse Ox 100 03/04/18 01:57 - Notes Notes: General Appearance: Well nourished, somnolent, cooperative, severe acute distress, no obvious discomfort. Vitals: reviewed, See vital signs table. Head: no swelling or tenderness to the head Eyes: PERRL, EOMI, Conjuctiva clear Mouth: No decreasd moisture Throat: No tonsillar inflammation, No airway obstruction, No lymphadenopathy Neck: Supple, no neck tenderness, No thyromegaly Lungs: No wheezing, No rales, diffuse rhonci, moderate accessory muscle use, fair air exchange bilaterally. Heart: tachycardic rate, Regular rythm, No murmur, no rub Abdomen: Normal BS, soft, No rigidity, No abdominal tenderness, No guarding, no rebound, no abdominal masses, no organomegaly Extremities: strength 5/5 in all extremities, good pulses in all extremities, no swelling or tenderness in the extremities, no edema. Skin: warm, dry, appropriate color, no rash Neuro: She is very somnolent. She will move her extremities some on her own but she is very weak throughout. Course - Re-evaluation Re-evalutation: 03/04/18 02:11 Patient placed on BiPAP when arrived. The sore tongue she has been on BiPAP her mental status is improving. She still somewhat somnolent but she is able to answer questions appropriately. Tachycardia is improving. Dr. Baez was able to get in touch with family. At this time she is a DNR/DNI. We will continue with BiPAP and supportive care at this time. 03/04/18 02:18 EKG is reviewed and interpreted by me. EKG shows sinus tachycardia with rate of 104 bpm. Occasional PACs. There is a lot of baseline artifact making some leads to difficult to interpret. I do not see any obvious ST segment elevation or depression. UT interval, QT intervals are within normal range. QRS duration is borderline. Old EKG for comparison is from January 30, 2018. 03/04/18 03:07 Patient continues to improve and become more alert and awake. Family is at bedside. Patient's and 2 daughters at bedside. I talked to them at length about the patient's condition and whether not they would want intubation and CPR in the future. He said the last time the took the patient 16 days, off the ventilator. They said that she would not want to go through that again. They wish to make the patient a DO NOT RESUSCITATE and DO NOT INTUBATE. This if the patient's condition is worsened to the point where she would need a ventilator they prefer her not to be intubated and just to be kept comfortable. I agree with their assessment of the situation I think this is most appropriate for the patient. I will fill out DNR paperwork. I have called the hospitalist and an waiting to hear back for admission. 03/04/18 03:19 I have spoken with the hospitalist, Dr. Henao, who agrees with the patient. Dictation of this chart was performed using voice recognition software; therefore, there may be some unintended grammatical errors. - Vital Signs Vital signs: Temp Pulse Resp BP Pulse Ox 99.1 F 21 H 120/67 100 03/04/18 02:02 03/04/18 03:05 03/04/18 03:06 03/04/18 03:06 - Laboratory Result Diagrams: 03/04/18 02:10 03/04/18 02:10 Laboratory results interpreted by me: 03/04/18 03/04/18 03/04/18 02:10 02:10 02:10 WBC 12.8 H RDW 15.9 H Seg Neutrophils % 37.4 L Lymphocytes % 51.6 H Absolute Lymphocytes 6.6 H Carbonic Acid 1.65 H ABG pCO2 54.9 H ABG pO2 145.7 H ABG HCO3 30.9 H ABG Total CO2 32.6 H ABG O2 Saturation 98.8 H Sodium 148.7 H Potassium 3.4 L Carbon Dioxide 31 H Glucose 188 H AST 48 H ALT 57 H Alkaline Phosphatase 150 H Total Protein 6.1 L Albumin 3.2 L Discharge - Discharge Clinical Impression: Respiratory distress, Hypoxemia Dementia Qualifiers: Dementia type: unspecified type Dementia behavioral disturbance: without behavioral disturbance Qualified Code(s): F03.90 - Unspecified dementia without behavioral disturbance Condition: Stable Disposition: ADMITTED INPATIENT Admitting Provider: Hospitalist Unit Admitted: [facility]
--- NOTE | 2018-03-04 02:19 | ER Document Report ---
Doctor's Note Notes: 03/04/18 02:18 Note: I did notify family that the patient is just arrived by EMS (Syeda Jordan is listed as the screed person). Ms. Jordan did tell me that the patient was recently intubated here at [place] and transferred to [facility] and was subsequently extubated. She states she has done well at the [facility] and she also states that the patient is recently signed DNR paperwork. At this time, therefore, the patient is a DNR. Ms. Jordan did state she is on her way into the hospital and will be here shortly.
[2018-03-04 02:24] LABS: ABSOLUTE BASOPHILS # (AUTO) 0.1 10^3/uL (0.0-0.2); ABSOLUTE EOSINOPHILS # (AUTO) 0.1 10^3/uL (0.0-0.6); ABSOLUTE LYMPHOCYTES (AUTO) 6.6 10^3/uL (0.5-4.7); ABSOLUTE MONOCYTES (AUTO) 1.2 10^3/uL (0.1-1.4); ABSOLUTE NEUT (AUTO) 4.8 10^3/uL (1.7-8.2); BASOPHILS % (AUTO) 0.4 % (0-2); HEMATOCRIT 37.5 % (36.0-47.0); HEMOGLOBIN 12.1 g/dL (12.0-15.5); LYMPHOCYTES % (AUTO) 51.6 % (13-45); MEAN CORPUSCULAR HEMOGLOBIN 28.2 pg (27.0-33.4); MEAN CORPUSCULAR HGB CONC 32.2 g/dL (32.0-36.0); MEAN CORPUSCULAR VOLUME 88 fl (80-97); MONOCYTES % (AUTO) 9.6 % (3-13); PLATELET COUNT 429 10^3/uL (150-450); RED BLOOD COUNT 4.28 10^6/uL (3.72-5.28); RED CELL DISTRIBUTION WIDTH 15.9 % (11.5-14.0); SEGMENTED NEUTROPHILS % (AUTO) 37.4 % (42-78); TOTAL CELLS COUNTED % (AUTO) 100 %; WHITE BLOOD COUNT 12.8 10^3/uL (4.0-10.5)
--- NOTE | 2018-03-04 02:31 | RADIOLOGY REPORT (SQ) ---
EXAM DESCRIPTION: CHEST SINGLE VIEW CLINICAL HISTORY: 72 years Female, sob COMPARISON: 3.25.18. CT, 01/25/2018, report only. NUMBER OF VIEWS/TECHNIQUE: 1/AP LIMITATIONS: None. FINDINGS: Small atelectasis or scar in the right midlung field. Small right perihilar opacity. Mild interstitial markings. Small left basilar opacity. Normal cardiac silhouette. No pneumothorax. No acute bone defect. Interval extubation. IMPRESSION: No significant change.
[2018-03-04 02:39] LABS: ALANINE AMINOTRANSFERASE 57 U/L (9-52); ALBUMIN 3.2 g/dL (3.5-5.0); ALKALINE PHOSPHATASE 150 U/L (38-126); ANION GAP 15 (5-19); ASPARTATE AMINO TRANSFERASE 48 U/L (14-36); BILIRUBIN,DIRECT 0.4 mg/dL (0.0-0.4); BILIRUBIN,TOTAL 0.5 mg/dL (0.2-1.3); BLOOD UREA NITROGEN 10 mg/dL (7-20); CALCIUM 9.5 mg/dL (8.4-10.2); CARBON DIOXIDE 31 mmol/L (22-30); CHLORIDE 103 mmol/L (98-107); GLUCOSE 188 mg/dL (75-110); POTASSIUM 3.4 mmol/L (3.6-5.0); SODIUM 148.7 mmol/L (137-145); TOTAL PROTEIN 6.1 g/dL (6.3-8.2)
[2018-03-04 02:51] LABS: ARTERIAL BLOOD BASE EXCESS 4.4 mmol/L; ARTERIAL BLOOD FIO2 45%; ARTERIAL BLOOD H2CO3 1.65 mmol/L (1.05-1.35); ARTERIAL BLOOD HCO3 30.9 mmol/L (20-26); ARTERIAL BLOOD O2 SATURATION 98.8 % (94-98); ARTERIAL BLOOD PCO2 54.9 mmHg (35-45); ARTERIAL BLOOD PH 7.37 (7.35-7.45); ARTERIAL BLOOD PO2 145.7 mmHg (80-100); ARTERIAL BLOOD TOTAL CO2 32.6 mmol/L (21-25)
[2018-03-04] MEDS ORDERED: ACETAMINOPHEN 325 MG TABLET PO PRN (03:50)
[2018-03-04] MEDS ORDERED: IPRATROPIUM/ALBUTEROL 0.5-2.5 MG/3 ML AMPUL NEB PRN ×2 (03:50→15:23)
[2018-03-04] MEDS ORDERED: MAG HYDROX/AL HYDROX/SIMETH SUSP 30 ML UDCUP PO PRN (03:50)
[2018-03-04] MEDS ORDERED: MAGNESIUM HYDROXIDE SUSP 30 ML UDCUP PO PRN (03:50)
[2018-03-04] MEDS ORDERED: NORMAL SALINE 1000 ML 1,000 ML IV ONE (03:54)
[2018-03-04] MEDS: POTASSI CL 20 MEQ/1/2NS 1L 20 MEQ/1,000 ML RTUINJ IV SCH ×2 (04:51→20:00)
[2018-03-04 06:19] LABS: HEMATOCRIT 33.3 % (36.0-47.0); HEMOGLOBIN 11.2 g/dL (12.0-15.5); MEAN CORPUSCULAR HGB CONC 33.7 g/dL (32.0-36.0); MEAN CORPUSCULAR VOLUME 86 fl (80-97); PLATELET COUNT 304 10^3/uL (150-450); RED BLOOD COUNT 3.86 10^6/uL (3.72-5.28); RED CELL DISTRIBUTION WIDTH 15.6 % (11.5-14.0); WHITE BLOOD COUNT 10.2 10^3/uL (4.0-10.5)
[2018-03-04] MEDS: HEPARIN SOD (PORCINE) 5,000 UNIT/ML 1 ML SYRINGE SUBCUT SCH ×3 (06:32→22:51)
[2018-03-04 06:34] LABS: ANION GAP 13 (5-19); BLOOD UREA NITROGEN 11 mg/dL (7-20); CALCIUM 9.3 mg/dL (8.4-10.2); CARBON DIOXIDE 31 mmol/L (22-30); CHLORIDE 104 mmol/L (98-107); GLUCOSE 154 mg/dL (75-110); POTASSIUM 3.8 mmol/L (3.6-5.0); SODIUM 148.1 mmol/L (137-145)
[2018-03-04 06:48] LABS: ABSOLUTE LYMPHOCYTES# (MANUAL) 0.5 10^3/uL (0.5-4.7); ABSOLUTE MONOCYTES # (MANUAL) 0.1 10^3/uL (0.1-1.4); ABSOLUTE NEUTROPHILS# (MANUAL) 9.6 10^3/uL (1.7-8.2); BASOPHILS % (MANUAL) 0 % (0-2); EOSINOPHILS % (MANUAL) 0 % (0-6); LYMPHOCYTES % (MANUAL) 5 % (13-45); MONOCYTES % (MANUAL) 1 % (3-13); SEGMENTED NEUTROPHILS % (MAN) 94 % (42-78); TOTAL CELLS COUNTED 100
[2018-03-04 06:49] LABS: ANISOCYTOSIS SLIGHT; PLATELET COMMENT ADEQUATE; PLATELET LARGE PRESENT
--- NOTE | 2018-03-04 06:50 | PDOC H&P ---
History of Present Illness Admission Date/PCP: 03/04/18 03:25 Patient complains of: Altered mental status History of Present Illness: HALEY LESTER is a 72 year old female who is a resident of the [facility], with a past medical history of hypertension, dyslipidemia advanced Alzheimer's dementia with delirium, pulmonary sarcoidosis, recurrent respiratory failure and recent pneumonia requiring prolonged intubation. She was discharged from acute care hospitalization for the above 1 week ago. She had improved despite DNR with hospice care and tolerating p.o. diet. Family at bedside noted she was agitated yesterday and later they were notified by longterm staff that she was altered. EMS recorded a pulse oximetry of 35%. She was placed on BiPAP and transported to the emergency room remaining poorly responsive. An ABG obtained 1 hour after BiPAP initiation showed hypercapnia. Family including at bedside verifies CODE STATUS is DNR and currently receiving hospice care. Review of her medications appear to have changed from December to include scheduled Risperdal and Remeron. Patient is now alert oriented 1 denying pain. Past Medical History Cardiac Medical History: Reports: Hyperlipidema, Hypertension Denies: Coronary Artery Disease Pulmonary Medical History: Reports: Asthma, Chronic Obstructive Pulmonary Disease (COPD), Other - Sarcoidosis Endocrine Medical History: Reports: Hypothyroidism Psychiatric Medical History: Reports: Dementia Denies: Depression Past Surgical History Past Surgical History: Reports: Hysterectomy, Orthopedic Surgery - low back fusion Social History Information Source: Relative, Emergency Med Personnel, [facility] Records Lives with: Long-Term Smoking Status: Unknown if Ever Smoked Frequency of Alcohol Use: None Hx Recreational Drug Use: No Drugs: None Hx Prescription Drug Abuse: No - Advance Directive Resuscitation Status: Do Not Resuscitate Family History Family History: Other - Unobtainable Parental Family History Reviewed: No - Unobtainable Children Family History Reviewed: No - Unobtainable Sibling(s) Family History Reviewed.: No - Unobtainable Medication/Allergy Home Medications: Acetaminophen [Tylenol 325 mg Tablet] 650 mg PO Q6HP PRN 12/30/17 Benazepril HCl [Lotensin 20 mg Tablet] 20 mg PO Q12 12/30/17 Betamethasone Dipropionate [Diprosone Cream] 1 applic TOP BID 12/30/17 Calcium Carbonate [Calcium] 600 mg PO DAILY 12/30/17 Cholecalciferol (Vitamin D3) [Vitamin D3] 5,000 intlu PO DAILY 12/30/17 Cold Cream/Zinc Oxide/Star/Art [Dermacloud Ointment] 1 applic TOP DAILY Donepezil HCl [Aricept] 10 mg PO DAILY 12/30/17 Ferrous Sulfate [Feosol 325 mg Tablet] 325 mg PO DAILY 12/30/17 Furosemide [Lasix 40 mg Tablet] 40 mg PO DAILY 12/30/17 Levothyroxine Sodium [Synthroid] 125 mcg PO Q6AM 12/30/17 Magnesium Hydroxide [Milk of Magnesia 30 ml Udcup] 30 ml PO DAILYP PRN 12/30/17 Memantine HCl [Namenda 10 mg Tablet] 10 mg PO BID 12/30/17 Mineral Oil/Petrolatum,White [Minerin Creme] 1 applic TOP BID 12/30/17 Potassium Chloride [K-Tab ER] 20 meq PO DAILY 12/30/17 Risperidone [Risperdal] 0.5 mg PO Q12 12/30/17 Verapamil HCl [Verapamil ER Pm] 300 mg PO QHS 12/30/17 Docusate Sodium [Colace 100 mg Capsule] 100 mg PO DAILY capsule 01/03/18 Ipratropium/Albuterol Sulfate [Duoneb 3 ml Ampul] 3 ml NEB RTQ6 vial.neb Mirtazapine [Remeron] 30 mg PO QHS #14 tablet 01/03/18 Thiamine HCl [Thiamine 100 mg Tablet] 100 mg PO DAILY tablet 01/03/18 Fluticasone Propionate [Flonase Nasal [place] 50 Mcg/[place] 16 gm] 2 spray NASL Q12 01/26/18 Guaifenesin [Robitussin Syrup 200 mg/10 ml Ud Cup] 200 mg PO Q4HP PRN 01/26/18 Ipratropium/Albuterol Sulfate [Duoneb 3 ml Ampul] 3 ml NEB [id number] PRN 01/26/18 Neomycin/Bacitracin/Polymyxinb [Neosporin Ointment] 1 applic TOP PRN PRN Allergies/Adverse Reactions: No Known Allergies Allergy (Verified 12/01/17 23:53) Review of Systems ROS unobtainable: Due to mental status - Dementia with delirium Physical Exam Vital Signs: Temp Pulse Resp BP Pulse Ox 99.1 F 21 H 120/67 100 03/04/18 02:02 03/04/18 03:05 03/04/18 03:06 03/04/18 03:06 General appearance: PRESENT: disheveled, mild distress, thin Head exam: PRESENT: atraumatic, normocephalic Eye exam: PRESENT: conjunctiva pink, EOMI, PERRLA. ABSENT: scleral icterus Ear exam: PRESENT: normal external ear exam Mouth exam: PRESENT: moist, tongue midline Neck exam: ABSENT: carotid bruit, JVD, lymphadenopathy, thyromegaly Respiratory exam: PRESENT: symmetrical. ABSENT: accessory muscle use, prolonged expiratory phas, retraction, tachypnea Cardiovascular exam: PRESENT: RRR. ABSENT: diastolic murmur, rubs, systolic murmur Pulses: PRESENT: normal dorsalis pedis pul Vascular exam: PRESENT: normal capillary refill GI/Abdominal exam: PRESENT: normal bowel sounds, soft. ABSENT: distended, guarding, mass, organolmegaly, rebound, tenderness Rectal exam: PRESENT: deferred Extremities exam: PRESENT: full ROM. ABSENT: calf tenderness, clubbing, pedal edema Neurological exam: PRESENT: alert, altered, awake, oriented to person, CN II- XII grossly intact. ABSENT: oriented to place, oriented to time, oriented to situation Psychiatric exam: PRESENT: flat affect. ABSENT: agitated, anxious Skin exam: PRESENT: dry, intact, warm. ABSENT: cyanosis, rash Results Laboratory Results: 03/04/18 05:50 03/04/18 05:50 Sodium 148.1 H Potassium 3.8 Chloride 104 Carbon Dioxide 31 H Anion Gap 13 BUN 11 Creatinine 0.57 Est GFR ( Amer) > 60 Est GFR (Non-Af Amer) > 60 Glucose 154 H Calcium 9.3 Impressions: Chest X-Ray 03/04/18 02:09 IMPRESSION: No significant change. Assessment & Plan - Diagnosis (1) Acute and chronic respiratory failure Qualifiers: Respiratory failure complication: hypoxia and hypercapnia Qualified Code(s) : J96.21 - Acute and chronic respiratory failure with hypoxia; J96.22 - Acute and chronic respiratory failure with hypercapnia; J96.22 - Acute and chronic respiratory failure with hypercapnia; J96.22 - Acute and chronic respiratory failure with hypercapnia Is this a current diagnosis for this admission?: Yes Plan: IMCU admission, autonomic dysfunction, Shy-Drager's versus sedation from medication, limit Remeron and Risperdal for severe agitation. Continue BiPAP support. Discharge planning consult for hospice is receiving hospice services as outpatient. (2) Dementia Qualifiers: Dementia type: unspecified type Dementia behavioral disturbance: without behavioral disturbance Qualified Code(s): F03.90 - Unspecified dementia without behavioral disturbance Is this a current diagnosis for this admission?: Yes Plan: Complicated by bouts of delirium, supportive measures (3) Hypoxemia Is this a current diagnosis for this admission?: Yes Plan: Supplemental oxygen and BiPAP (4) Hypernatremia Is this a current diagnosis for this admission?: Yes Plan: Secondary to poor p.o. intake, half-normal saline trial reevaluate chemistry. - Time Time Spent: 50 to 70 Minutes - Inpatient Certification Medical Necessity: Need Close Monitoring Due to Risk of Patient Decompensation
--- NOTE | 2018-03-04 07:33 | EKG REPORT ---
SEVERITY:- DEFECTIVE ECG - SINUS TACHYCARDIA MULTIFORM VENTRICULAR PREMATURE COMPLEXES : Confirmed by: Adán Dukes MD 04-Mar-2018 07:32:31
[2018-03-04] MEDS ORDERED: LAN TOP SCH (10:00)
[2018-03-04] MEDS ORDERED: [UNRECOGNIZED DRUG - OTHER] TOP SCH (10:00)
[2018-03-04] MEDS ORDERED: BETAMETHASONE DIPROPIONATE TOP SCH (10:00)
[2018-03-04] MEDS ORDERED: ZINC OXIDE TOP SCH (10:00)
[2018-03-04] MEDS ORDERED: COLD TOP SCH (10:00)
[2018-03-04] MEDS ORDERED: LEVOTHYROXINE SODIUM 0.1 MG TABLET PO SCH (10:00)
[2018-03-04] MEDS: IPRATROPIUM/ALBUTEROL 0.5-2.5 MG/3 ML AMPUL NEB SCH ×2 (10:28→19:57)
[2018-03-04] MEDS: LEVOTHYROXINE SODIUM 0.1 MG TABLET PO SCH (10:29)
[2018-03-04] MEDS: CHOLECALCIFEROL (D3) 1,000 UNIT TABLET PO SCH (10:29)
[2018-03-04] MEDS: MEMANTINE HCL 10 MG TABLET PO SCH ×2 (10:30→17:20)
[2018-03-04] MEDS: LEVOTHYROXINE SODIUM 0.025 MG TABLET PO SCH (10:30)
[2018-03-04] MEDS: BENAZEPRIL HCL 20 MG TABLET PO SCH ×2 (10:31→22:50)
[2018-03-04] MEDS: RISPERIDONE 0.25 MG TABLET PO SCH ×2 (10:31→22:50)
[2018-03-04] MEDS: DONEPEZIL HCL 5 MG TABLET PO SCH (10:31)
[2018-03-04] MEDS: DOCUSATE SODIUM 100 MG CAPSULE PO SCH ×2 (10:31→17:21)
[2018-03-04] MEDS: FLUTICASONE NASAL SPRAY 50 MCG/SPRY 120 SPRAY/16 GM NASL SCH ×2 (10:32→22:51)
[2018-03-04] MEDS ORDERED: GUAIFENESIN SYRP 200 MG/10 ML UDC PO PRN (15:23)
--- NOTE | 2018-03-04 17:30 | PDOC PROGRESS REPORT ---
Subjective Progress Note for:: 03/04/18 Subjective:: Unable to obtain complaints from patient she is demented. is at bedside and relates that patient is DO NOT RESUSCITATE and does not want for her to be intubated. Review of systems All organ systems evaluated and negative except as in subjective All significant laboratories and diagnostics have been reviewed Reason For Visit: RESP FAILURE,DEMENTIA W DELERIUM Physical Exam Vital Signs: Temp Pulse Resp BP Pulse Ox 98.2 F 21 H 132/76 H 100 03/04/18 06:39 03/04/18 08:01 03/04/18 08:01 03/04/18 08:01 General appearance: PRESENT: no acute distress, cooperative, obese Head exam: PRESENT: atraumatic, normocephalic Eye exam: PRESENT: conjunctiva pink, EOMI, PERRLA Ear exam: PRESENT: normal external ear exam Mouth exam: PRESENT: moist Neck exam: PRESENT: full ROM. ABSENT: JVD, lymphadenopathy, tenderness Respiratory exam: PRESENT: clear to auscultation lino Cardiovascular exam: PRESENT: RRR. ABSENT: diastolic murmur, systolic murmur Vascular exam: PRESENT: normal capillary refill GI/Abdominal exam: PRESENT: normal bowel sounds, soft. ABSENT: tenderness Extremities exam: PRESENT: full ROM. ABSENT: pedal edema Musculoskeletal exam: PRESENT: ambulatory Neurological exam: PRESENT: alert, awake. ABSENT: oriented to person, oriented to place, oriented to time, oriented to situation Skin exam: PRESENT: normal color Results Laboratory Results: 03/04/18 05:50 03/04/18 05:50 03/04/18 03/04/18 05:50 05:50 WBC 10.2 RBC 3.86 Hgb 11.2 L Hct 33.3 L MCV 86 MCH 29.0 MCHC 33.7 RDW 15.6 H Plt Count 304 Seg Neutrophils % Not Reportable Lymphocytes % Not Reportable Monocytes % Not Reportable Eosinophils % Not Reportable Basophils % Not Reportable Absolute Neutrophils Not Reportable Absolute Lymphocytes Not Reportable Absolute Monocytes Not Reportable Absolute Eosinophils Not Reportable Absolute Basophils Not Reportable Sodium 148.1 H Potassium 3.8 Chloride 104 Carbon Dioxide 31 H Anion Gap 13 BUN 11 Creatinine 0.57 Est GFR ( Amer) > 60 Est GFR (Non-Af Amer) > 60 Glucose 154 H Calcium 9.3 Impressions: Chest X-Ray 03/04/18 02:09 IMPRESSION: No significant change. Assessment & Plan - Diagnosis (1) Dementia Qualifiers: Dementia type: unspecified type Dementia behavioral disturbance: without behavioral disturbance Qualified Code(s): F03.90 - Unspecified dementia without behavioral disturbance Is this a current diagnosis for this admission?: Yes Plan: Continue outpatient regimen (2) Acute and chronic respiratory failure Qualifiers: Respiratory failure complication: hypoxia and hypercapnia Qualified Code(s) : J96.21 - Acute and chronic respiratory failure with hypoxia; J96.22 - Acute and chronic respiratory failure with hypercapnia; J96.22 - Acute and chronic respiratory failure with hypercapnia; J96.22 - Acute and chronic respiratory failure with hypercapnia Is this a current diagnosis for this admission?: Yes Plan: Improved. At the time of evaluation patient is off BiPAP (3) Anemia Qualifiers: Anemia type: unspecified type Qualified Code(s): D64.9 - Anemia, unspecified Is this a current diagnosis for this admission?: Yes Plan: Stable (4) HTN (hypertension) Qualifiers: Hypertension type: essential hypertension Qualified Code(s): I10 - Essential (primary) hypertension Is this a current diagnosis for this admission?: Yes Plan: Continue outpatient regimen (5) Hypothyroidism Qualifiers: Hypothyroidism type: acquired Qualified Code(s): E03.9 - Hypothyroidism, unspecified Is this a current diagnosis for this admission?: Yes Plan: Continue outpatient regimen (6) Pulmonary hypertension Is this a current diagnosis for this admission?: Yes Plan: Continue diuretics (7) Sarcoidosis Is this a current diagnosis for this admission?: Yes Plan: Continue low-dose steroids (8) Seizure disorder Is this a current diagnosis for this admission?: Yes Plan: Continue outpatient regimen - Time Time Spent with patient: 15-24 minutes Medications reviewed and adjusted accordingly: Yes Anticipated discharge: SNF Within: within 48 hours - Inpatient Certification Based on my medical assessment, after consideration of the patient's comorbidities, presenting symptoms, or acuity I expect that the services needed warrant INPATIENT care.: Yes I certify that my determination is in accordance with my understanding of Medicare's requirements for reasonable and necessary INPATIENT services [42 CFR 412.3e].: Yes Medical Necessity: Need Close Monitoring Due to Risk of Patient Decompensation, Need For Continuous Telemetry Monitoring
[2018-03-04] MEDS ORDERED: MEMANTINE HCL 10 MG TABLET PO SCH (22:00)
[2018-03-04] MEDS ORDERED: MIRTAZAPINE 15 MG TABLET PO SCH ×2 (22:00)
[2018-03-05 05:10] LABS: ABSOLUTE LYMPHOCYTES (AUTO) 1.3 10^3/uL (0.5-4.7); ABSOLUTE MONOCYTES (AUTO) 0.7 10^3/uL (0.1-1.4); ABSOLUTE NEUT (AUTO) 6.2 10^3/uL (1.7-8.2); BASOPHILS % (AUTO) 0.2 % (0-2); EOSINOPHILS % (AUTO) 0.3 % (0-6); HEMATOCRIT 28.7 % (36.0-47.0); HEMOGLOBIN 9.5 g/dL (12.0-15.5); LYMPHOCYTES % (AUTO) 16.2 % (13-45); MEAN CORPUSCULAR HEMOGLOBIN 28.9 pg (27.0-33.4); MEAN CORPUSCULAR HGB CONC 33.1 g/dL (32.0-36.0); MEAN CORPUSCULAR VOLUME 87 fl (80-97); MONOCYTES % (AUTO) 8.6 % (3-13); PLATELET COUNT 260 10^3/uL (150-450); RED BLOOD COUNT 3.29 10^6/uL (3.72-5.28); RED CELL DISTRIBUTION WIDTH 15.8 % (11.5-14.0); SEGMENTED NEUTROPHILS % (AUTO) 74.7 % (42-78); TOTAL CELLS COUNTED % (AUTO) 100 %; WHITE BLOOD COUNT 8.3 10^3/uL (4.0-10.5)
[2018-03-05 05:37] LABS: ANION GAP 7 (5-19); BLOOD UREA NITROGEN 14 mg/dL (7-20); CALCIUM 8.9 mg/dL (8.4-10.2); CARBON DIOXIDE 34 mmol/L (22-30); CHLORIDE 105 mmol/L (98-107); GLUCOSE 97 mg/dL (75-110); POTASSIUM 3.7 mmol/L (3.6-5.0); SODIUM 146.3 mmol/L (137-145)
[2018-03-05] MEDS ORDERED: (PENDING PHARMACY ID) (Levothyroxine Sodium [Synthroid] 125 MCG) PO SCH (06:00)
[2018-03-05] MEDS: HEPARIN SOD (PORCINE) 5,000 UNIT/ML 1 ML SYRINGE SUBCUT SCH ×2 (06:19→15:31)
[2018-03-05] MEDS ORDERED: PREDNISOLONE PO SCH (08:00)
[2018-03-05] MEDS: IPRATROPIUM/ALBUTEROL 0.5-2.5 MG/3 ML AMPUL NEB SCH (08:34)
[2018-03-05] MEDS ORDERED: FUROSEMIDE 20 MG TABLET PO SCH (10:00)
[2018-03-05] MEDS: PREDNISOLONE SOD PHOS 15 MG/5 ML ORAL SYRING PO SCH (10:00)
[2018-03-05] MEDS ORDERED: (PENDING PHARMACY ID) (Donepezil Hcl [Aricept] 10 MG) PO SCH (10:00)
[2018-03-05] MEDS: DOCUSATE SODIUM 100 MG CAPSULE PO SCH (10:03)
[2018-03-05] MEDS: LEVOTHYROXINE SODIUM 0.025 MG TABLET PO SCH (10:03)
[2018-03-05] MEDS: MEMANTINE HCL 10 MG TABLET PO SCH (10:04)
[2018-03-05] MEDS: CHOLECALCIFEROL (D3) 1,000 UNIT TABLET PO SCH (10:04)
[2018-03-05] MEDS: BENAZEPRIL HCL 20 MG TABLET PO SCH (10:04)
[2018-03-05] MEDS: DONEPEZIL HCL 5 MG TABLET PO SCH (10:05)
[2018-03-05] MEDS: LEVOTHYROXINE SODIUM 0.1 MG TABLET PO SCH (10:05)
[2018-03-05] MEDS: FLUTICASONE NASAL SPRAY 50 MCG/SPRY 120 SPRAY/16 GM NASL SCH (10:06)
[2018-03-05] MEDS: RISPERIDONE 0.25 MG TABLET PO SCH (10:10)
--- NOTE | 2018-03-05 13:25 | PDOC TRANSFER SUMMARY ---
General - Admit/Disc Date/PCP Admission Date/Primary Care Provider: 03/04/18 03:25 Discharge Date: 03/05/18 - Discharge Diagnosis (1) Acute and chronic respiratory failure Is this a current diagnosis for this admission?: Yes (2) Dementia Is this a current diagnosis for this admission?: Yes (3) Anemia Is this a current diagnosis for this admission?: Yes (4) HTN (hypertension) Is this a current diagnosis for this admission?: Yes (5) Hypothyroidism Is this a current diagnosis for this admission?: Yes (6) Pulmonary hypertension Is this a current diagnosis for this admission?: Yes (7) Sarcoidosis Is this a current diagnosis for this admission?: Yes - Additional Information Resuscitation Status: Do Not Resuscitate Discharge Diet: Cardiac, Diabetic Discharge Activity: Activity As Tolerated Home Medications: Acetaminophen [Tylenol 325 mg Tablet] 650 mg PO Q6HP PRN 03/04/18 Donepezil HCl [Aricept] 10 mg PO DAILY 03/04/18 Furosemide [Lasix 20 mg Tablet] 20 mg PO DAILY 03/04/18 Guaifenesin [Robafen] 10 ml PO Q4HP PRN 03/04/18 Ipratropium/Albuterol Sulfate [Duoneb 3 ml Ampul] 1 vial NEB Q4HP PRN 03/04/18 Levothyroxine Sodium [Synthroid] 125 mcg PO Q6AM 03/04/18 Magnesium Hydroxide [Milk of Magnesia 30 ml Udcup] 30 ml PO DAILYP PRN 03/04/18 Memantine HCl [Namenda 10 mg Tablet] 10 mg PO Q12 03/04/18 Mirtazapine [Remeron 15 mg Tablet] 30 mg PO QHS 03/04/18 Nystatin [Mycostatin Topical Powder 15 gm] 1 applic TOP DAILY 03/04/18 Prednisolone [Millipred] 7.5 mg PO QAM 03/04/18 History of Present Illness Admission Date/PCP: 03/04/18 03:25 History of Present Illness: HALEY LESTER is a 72 year old female who is a resident of the [facility], with a past medical history of hypertension, dyslipidemia, advanced Alzheimer's dementia with delirium, pulmonary sarcoidosis, recurrent respiratory failure and recent pneumonia requiring prolonged intubation. She was discharged from acute care hospitalization for the above 1 week ago. She improved and discharged under hospice care. Family at bedside noted she was agitated. EMS recorded a pulse oximetry of 35%. She was placed on BiPAP and transported to the emergency room remaining poorly responsive. An ABG obtained 1 hour after BiPAP initiation showed hypercapnia. Family including at bedside verified CODE STATUS was DNR and was under hospice care. Review of her medications appear to have changed from December to include scheduled Risperdal and Remeron. Patient was admitted under hospitalist service due to acute on chronic respiratory failure. Hospital Course Hospital Course: Patient was placed initially on BiPAP with improvement of respiratory status remain the same throughout her hospital stay. Family reiterated wanting for patient to return back to the [facility]. Hospice follow-through while hospitalized and I was informed by family member (daughter) that hospice has already ordered BiPAP to the deliver to the facility. Since patient is stable and patient family wanting for patient to return back to the [facility] prompted to discharge Physical Exam Vital Signs: Temp Pulse Resp BP Pulse Ox 97.6 F 80 16 126/68 H 100 03/05/18 07:17 03/05/18 08:34 03/05/18 08:34 03/05/18 07:17 03/05/18 08:34 Intake & Output 03/04/18 03/05/18 03/06/18 06:59 06:59 06:59 Intake Total 1170 Balance 1170 Weight 67 kg General appearance: PRESENT: no acute distress, cooperative, obese Head exam: PRESENT: atraumatic, normocephalic Eye exam: PRESENT: conjunctiva pink, EOMI, PERRLA Ear exam: PRESENT: normal external ear exam Mouth exam: PRESENT: moist Neck exam: PRESENT: full ROM. ABSENT: JVD, lymphadenopathy, tenderness, thyromegaly Respiratory exam: PRESENT: other - Adequate movement of air with soft basilar crackles Cardiovascular exam: PRESENT: RRR. ABSENT: diastolic murmur, systolic murmur Vascular exam: PRESENT: normal capillary refill GI/Abdominal exam: PRESENT: normal bowel sounds, soft. ABSENT: tenderness Extremities exam: PRESENT: full ROM. ABSENT: pedal edema Musculoskeletal exam: PRESENT: ambulatory Neurological exam: PRESENT: alert, awake, oriented to person. ABSENT: oriented to place, oriented to time, oriented to situation Psychiatric exam: PRESENT: appropriate affect, normal mood Skin exam: PRESENT: normal color Results Laboratory Results: 03/05/18 04:36 03/05/18 04:36 03/05/18 03/05/18 04:36 04:36 WBC 8.3 RBC 3.29 L Hgb 9.5 L Hct 28.7 L MCV 87 MCH 28.9 MCHC 33.1 RDW 15.8 H Plt Count 260 Seg Neutrophils % 74.7 Lymphocytes % 16.2 Monocytes % 8.6 Eosinophils % 0.3 Basophils % 0.2 Absolute Neutrophils 6.2 Absolute Lymphocytes 1.3 Absolute Monocytes 0.7 Absolute Eosinophils 0.0 Absolute Basophils 0.0 Sodium 146.3 H Potassium 3.7 Chloride 105 Carbon Dioxide 34 H Anion Gap 7 BUN 14 Creatinine 0.56 Est GFR ( Amer) > 60 Est GFR (Non-Af Amer) > 60 Glucose 97 Calcium 8.9 Impressions: Chest X-Ray 03/04/18 02:09 IMPRESSION: No significant change. Transfer Plan - Disposition Transfer Plan: Transfer to [facility] facility under hospice care - Time Spent with Patient Time spent with patient: Less than 30 Minutes Qualifiers - * PATIENT BEING DISCHARGED WITH ANY OF THE FOLLOWING DIAGNOSIS: No
[2018-03-05 16:42] VITALS: BP 143/84
== END 2018-03-05 17:00 | disposition hospice, inpatient (51) | DRG 189 ==
LOC: ER 01:55 → EH 03:25 → 3N 16:27
PROVIDERS: ADMIT Internal Medicine; ATTEND Internal Medicine
PROC: 5A09357 Assistance with Respiratory Ventilation, Less than 24 Consecutive Hours, Continuous Positive Airway Pressure (ICD-10-PCS; principal; 2018-03-04)
PROC: 3E0F73Z Introduction of Anti-inflammatory into Respiratory Tract, Via Natural or Artificial Opening (ICD-10-PCS; 2018-03-04)
DX: J96.21 Acute and chronic respiratory failure with hypoxia (principal); F05 Delirium due to known physiological condition; E87.0 Hyperosmolality and hypernatremia; J96.22 Acute and chronic respiratory failure with hypercapnia; G30.9 Alzheimer's disease, unspecified; F02.80 Dementia in other diseases classified elsewhere, unspecified severity, without behavioral disturbance, psychotic disturbance, mood disturbance, and anxiety; Z66 Do not resuscitate; D64.9 Anemia, unspecified; I10 Essential (primary) hypertension; E03.9 Hypothyroidism, unspecified; I27.20 Pulmonary hypertension, unspecified; E78.00 Pure hypercholesterolemia, unspecified; D86.0 Sarcoidosis of lung; J44.9 Chronic obstructive pulmonary disease, unspecified; G40.909 Epilepsy, unspecified, not intractable, without status epilepticus; Z79.899 Other long term (current) drug therapy; Z90.710 Acquired absence of both cervix and uterus
CPT/HCPCS: 36415; 71045; 80048; 80053; 82803; 85025; 93005; 93010; 94640; 94660; 99285; G8978-GP; G8979-GP; J1644; J3480; J3490; J7510; J7620